=== PATIENT | female | born 1935 | race Asian ===

== ENCOUNTER 2021-08-07 13:24 | Inpatient (IN) | payer MEDICARE, SELFPAY ==
[2021-08-07] VITALS (42 sets, daily range): BP systolic 112–209; BP diastolic 69–117; PULSE 89–116; RESP 12–31; TEMP 36.8–38.1; O2SAT 88–96
--- NOTE | 2021-08-07 13:49 | CT_ITS ---
WS: [id number] CT ABDOMEN PELVIS TECHNIQUE: Contrast-enhanced CT of the abdomen and pelvis with coronal and sagittal reformatted image s. CLINICAL INFORMATION: eval for abd pain COMPARISON: 4 7,016 DLP: 1189.[address] scans at [facility] use at least one of these dose optimization techniques: automated e xposure control; mA and/or kV adjustment per patient size (includes targeted exams where dose is matc hed to clinical indication); or iterative reconstruction. FINDINGS: Dilated fluid-filled gallbladder with peripheral enhancement. Surrounding inflammatory stranding and edema in the gallbladder fossa. Reactive enhancement in the liver parenchyma in the gallbladder fossa . Findings suspicious for acute cholecystitis. Dilated common bile duct measuring 8 to 9 mm. No defin ite visualized choledocholithiasis. Recommend further evaluation with MRCP. Calcified gallstone in th e dorsal aspect of the gallbladder. Reactive enhancement in the adjacent duodenum. Diffuse fatty infiltration of the liver. Mild intrahepatic biliary duct dilatation. Normal portal vei n and splenic vein. Normal GE junction. Normal spleen. Adrenal glands are normal. Normal renal parenc hymal enhancement. No hydronephrosis in either kidney. RIGHT renal parenchymal scarring along the upp er pole. Bibasilar atelectasis. Mild fatty atrophy of the pancreas. Normal pancreatic parenchymal enh ancement. Dense calcification at the celiac and SMA origins which are patent. Densely calcified abdominal aorta . No aneurysm. Salcedo catheter. Rectosigmoid constipation. Sigmoid diverticulosis. No evidence of acute diverticuliti s. Thickening with inflammatory stranding involving the RIGHT colon and hepatic flexure extending int o the proximal transverse colon likely reactive from the adjacent gallbladder inflammation. Colitis i s an additional consideration. Surrounding mesenteric edema. Mild lumbar curve. Chronic appearing anterior wedging at T12 and L2. CT/CT abdomen pelvis w con* [id number] IMPRESSION: 1. Fluid distended gallbladder with wall thickening and enhancement with surro unding induration suspicious for acute cholecystitis. Dilatation common bile du ct measuring 8 to 9 mm. Recommend further evaluation with ultrasound and MRCP. 2. Mild intrahepatic biliary ductal dilatation. 3. Thickening and enhancement involving the RIGHT hepatic flexure adjacent to the gallbladder extending into the proximal transverse colon likely reactive. I nfectious, inflammatory, or ischemic colitis is an additional consideration. No pneumatosis. 4. No free fluid in the pelvis. 5. Salcedo catheter in place. 6. Rectosigmoid constipation. 7. Densely calcified abdominal aorta. Notified Guillermina Solano MD at 08/07/2021 4:42 PM.
--- NOTE | 2021-08-07 13:49 | XR_ITS ---
WS: [id number] Exam: XR chest 1V portable [id number] Date/Time of Exam: 08/07/2021 1:49 PM Reason For Exam: ams Comparison 05/27/2017. The lungs are fully expanded and clear. Cardiomediastinal silhouette is unremarkable for technique. B lunted left costophrenic angle suggesting trace pleural effusion. Regional bony elements are intact. XR/XR chest 1V portable [id number] IMPRESSION: 1. Blunted left costophrenic angle suggesting trace pleural effusion. 2. No acute cardiopulmonary finding.
--- NOTE | 2021-08-07 13:49 | CT_ITS ---
WS: [id number] CT HEAD TECHNIQUE: Noncontrast CT of the head obtained from the skullbase to the vertex. CLINICAL INFORMATION: ams COMPARISON: CT 2010 DLP: 2424.[address] scans at [facility] use at least one of these dose optimization techniques: automated e xposure control; mA and/or kV adjustment per patient size (includes targeted exams where dose is matc hed to clinical indication); or iterative reconstruction. FINDINGS: No evidence of intracranial hemorrhage or mass effect. Ventricular system and basal cisterns are veliz nt. Moderate small vessel changes with moderate parenchymal volume loss. 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 Intracranial vascular calcification. 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 Mild mucosal thickening paranasal sinuses. CT/CT head wo con* [id number] IMPRESSION: 1. No evidence of intracranial hemorrhage or mass effect. 2. Moderate small vessel changes with moderate parenchymal volume loss progres sed compared to 2010. 3. Chronic lacunar infarcts in the LEFT basal ganglia, LEFT villa radiata, an d RIGHT thalamus. 4. Calcified small petroclival meningioma appears stable since 2009. 5. No acute intracranial findings.
--- NOTE | 2021-08-07 13:59 | ED_ITS ---
HPI - General Adult General: Chief complaint: Altered Mental Status Stated complaint: AMS, HTN Time Seen by Provider: 08/07/21 13:35 History of Present Illness: Patient is a 86-year-old female history of baseline dementia and recently treated UTI presenting to emergency room for concerns of fever and altered mental status. Earlier today, patient had a physical therapy session at a rehab facility. While patient was observed in the rehab facility, patient was confused and culture and EMS was called and patient was brought to the emergency room. In the emergency room, patient is responsive only to name, rest of history limited by cognitive status. Per EMS, patient recently was treated for UTI. Onset:unknown Duration:ongoing Location:home Severity:moderate/severe Review of Systems General: Reports: ROS unobtainable due to mental status PFSH ED PFSH: Medical History Acute UTI Dementia Surgical History Surgical history unknown Family History Other Unknown family medical history Social History Smoking and tobacco status: unknown if ever smoked Alcohol intake: unknown Substance/Drug Use: unknown Physical Exam Const: COMMON NORMALS: alert HENMT: COMMON NORMALS: atraumatic HEAD & SCALP: atraumatic MOUTH: moist mucous membranes not abnormal Eye: COMMON NORMALS: EOMs intact bilaterally and conjunctivae normal CONJUNCTIVA: Yes conjunctivae normal Neck/C-Spine: COMMON NORMALS: full ROM and supple Resp: COMMON NORMALS: normal respiratory effort OTHER: +mild decreased breath sounds b/l Cardio: COMMON NORMALS: regular rate RATE: regular rate GI: COMMON NORMALS: Soft to palpation PALPATION: Yes Soft to palpation OTHER: +moderate lower abd TTP. NO guarding rebound, guarding, rigidity. No CVA tenderness to percussion. Neg Dixon/Neg McBurney's point tenderness, no suprabupic tenderness to palpation. Extremity: COMMON NORMALS: full ROM Neuro: SENSORIUM/ORIENTATION: Yes alert OTHER: +unable to assess given AMS, responsive to name, and moving all extremities Psych: OTHER: +unable to asess given AMS Course Vital Signs: Vital signs: Vital Signs Temperature 100.3 F H 08/08/21 07:09 Pulse Rate 97 08/08/21 09:00 Respiratory Rate 13 08/08/21 09:00 Blood Pressure 192/90 08/08/21 09:00 Pulse Oximetry 91 08/08/21 09:00 MDM - General Adult Medical Decision Making 86-year-old female with history UTI baseline dementia presenting to the emergency room from physical rehab for concerns of altered mental status. Arrival, patient to be febrile to 100.6. Rest of history limited given underlying cognitive status. Patient's appears to be moving all extremity. Patient winces to pain to palpation of lower abdomen. No guarding or rebound tenderness. Labs showed WBC of 32.1. No AST ALT or T bili elevation. CT abdomen pelvis showed acute cholecystitis with possible colitis. No signs of CBD stone do not suspect acute cholangitis at this time in the setting of no lab abnormality. I discussed case with Dr. Restrepo around 4:51 PM who tells me that given this white count, recommended evaluating for ischemic bowel first with CTA study significant leukocytosis. CTA did not show any signs of ischemic bowel. On the CTA study, and is clear visualization of acute cholecystitis with 9 mm stone in the gallbladder neck. I have called Dr. Restrepo again and discussed findings. Dr. Restrepo tells me that NOW because there is clear visualization of acute cholecystitis, thereis no need for a HIDA scan. It is unclear whether patient has significant cholecystitis with adjacent inflammation next the ascending colon or she has acute cholecystitis concurrently with colitis. Patient has not had any diarrhea while observed in the emergency room. We will send stool culture should this be C. difficile colitis. Patient received vancomycin, cefepime and metronidazole. Patient received 1 L of fluid. We will choose to fluid restrict set again at 30 cc/kg bolus of IVF given age and unknown past medical history. I have discussed case with patient's friend Santiago who notified patient's Dennis who is the healthcare proxy. Dennis tells me that patient is full code at this time and would like patient to have surgery should she need it. Disposition: admission Lab Data : 08/08/21 04:54 08/08/21 04:54 Radiology Impressions Abdomen/Pelvis CT 08/07/21 13:49 IMPRESSION: 1. Fluid distended gallbladder with wall thickening and enhancement with surrounding induration suspicious for acute cholecystitis. Dilatation common bile duct measuring 8 to 9 mm. Recommend further evaluation with ultrasound and MRCP. 2. Mild intrahepatic biliary ductal dilatation. 3. Thickening and enhancement involving the RIGHT hepatic flexure adjacent to the gallbladder extending into the proximal transverse colon likely reactive. Infectious, inflammatory, or ischemic colitis is an additional consideration. No pneumatosis. 4. No free fluid in the pelvis. 5. Salcedo catheter in place. 6. Rectosigmoid constipation. 7. Densely calcified abdominal aorta. Notified Guillermina Solano MD at 08/07/2021 4:42 PM. Chest X-Ray 08/07/21 13:49 IMPRESSION: 1. Blunted left costophrenic angle suggesting trace pleural effusion. 2. No acute cardiopulmonary finding. Head CT 08/07/21 13:49 IMPRESSION: 1. No evidence of intracranial hemorrhage or mass effect. 2. Moderate small vessel changes with moderate parenchymal volume loss progressed compared to 2009. 3. Chronic lacunar infarcts in the LEFT basal ganglia, LEFT villa radiata, and RIGHT thalamus. 4. Calcified small petroclival meningioma appears stable since 2009. 5. No acute intracranial findings. Gallbladder Ultrasound 08/07/21 16:44 IMPRESSION: 1. Thickened gallbladder wall, consistent with acute cholecystitis. There is no visible calculus within the gallbladder on ultrasound. In retrospect, on the CT scan 08/07/2021, there is a 9 mm calcified stone in the gallbladder neck. Abdomen/Pelvis CTA 08/07/21 16:50 IMPRESSION: 1. No active GI hemorrhage identified. 2. Acute cholecystitis with 9 mm gallstone in the neck. 3. Inflammation of the ascending, hepatic flexure, and proximal transverse colon. This is most likely reactive inflammation due to the gallbladder disease. Infectious or inflammatory colitis is not excluded. 4. Thickened urinary bladder wall may relate to nondistention. Cystitis is not excluded. Laboratory Results WBC 32.1 10^3/uL (4.0-10.0) H* 08/07/21 14:15 RBC 4.49 10^6/uL (4.1-5.3) 08/07/21 14:15 Hgb 14.3 g/dL (11.5-15.3) 08/07/21 14:15 Hct 43.0 % (37.0-47.0) 08/07/21 14:15 MCV 95.8 fl (81-99) 08/07/21 14:15 MCH 31.8 pg (28.0-34.0) 08/07/21 14:15 MCHC 33.3 g/dL (30.0-36.0) 08/07/21 14:15 RDW 12.9 % (12.1-15.1) 08/07/21 14:15 Plt Count 279 10^3/cmm (130-400) 08/07/21 14:15 MPV 9.9 fL (7.4-10.4) 08/07/21 14:15 Neut % (Auto) 92.7 % 08/07/21 14:15 Lymph % (Auto) 2.0 % 08/07/21 14:15 Irion % (Auto) 4.2 % 08/07/21 14:15 Eos % (Auto) 0.0 % 08/07/21 14:15 Baso % (Auto) 0.2 % 08/07/21 14:15 Neut # (Auto) 29.72 10^3/uL (1.8-7.7) H 08/07/21 14:15 Lymph # (Auto) 0.6 10^3/uL (0.8-4.8) L 08/07/21 14:15 [place] # (Auto) 1.4 10^3/uL (0.2-0.9) H 08/07/21 14:15 Eos # (Auto) 0.0 10^3/uL (0.0-0.8) 08/07/21 14:15 Baso # (Auto) 0.1 10^3/uL (0.0-0.1) 08/07/21 14:15 Nucleated RBC % (auto) 0 % 08/07/21 14:15 Nucleated RBCs # 0.0 /100WBC 08/07/21 14:15 Sodium 134 mmol/L (136-145) L 08/07/21 14:15 Potassium 4.2 mmol/L (3.5-5.1) 08/07/21 14:15 Chloride 98 mmol/L (98-107) 08/07/21 14:15 Carbon Dioxide 20 mmol/L (22-29) L 08/07/21 14:15 Anion Gap 20.2 (5-19) H 08/07/21 14:15 BUN 19 mg/dL (8-23) 08/07/21 14:15 Creatinine 0.6 mg/dL (0.5-0.9) 08/07/21 14:15 GFR Calculation Not Reportable 08/07/21 14:15 Glucose 392 mg/dL (65-115) H 08/07/21 14:15 Estimat Average Glucose 163 08/07/21 14:15 Hemoglobin A1c 7.3 % (4.0-6.0) H 08/07/21 14:15 Calculated Osmolality 297 mOsm/kg (285-295) H 08/07/21 14:15 Lactate 3.0 mmol/L (0.5-2.2) H 08/07/21 14:15 Calcium 8.4 mg/dL (8.5-10.5) L 08/07/21 14:15 Total Bilirubin 0.6 mg/dL (0.15-1.2) 08/07/21 14:15 AST 24 U/L (0-32) 08/07/21 14:15 ALT 13 U/L (0-33) 08/07/21 14:15 Alkaline Phosphatase 62 IU/L (35-105) 08/07/21 14:15 Troponin T Baseline 22 ng/L (0-10) H 08/07/21 14:15 Troponin T 120 Minute 19.85 ng/L (0-10) H 08/07/21 16:42 Delta Troponin T -2.15 ABS# (0-10) L 08/07/21 16:42 Troponin T Hi Sens 6Hr 22.32 ng/L (0-10) H 08/07/21 20:07 Troponin T Hi Sens 6Hr Delta 0.32 ng/L (0-12) 08/07/21 20:07 Total Protein 6.9 g/dL (6.6-8.7) 08/07/21 14:15 Albumin 3.6 g/dL (3.5-5.2) 08/07/21 14:15 Globulin 3.3 g/dL (1.3-4.6) 08/07/21 14:15 Triglycerides 97 mg/dL (0-150) 08/07/21 14:15 Cholesterol 161 mg/dL (0-200) 08/07/21 14:15 LDL Cholesterol, Calc 89 mg/dL (50-129) 08/07/21 14:15 HDL Cholesterol 53 mg/dL (60-100) L 08/07/21 14:15 LDL/HDL Ratio 1.68 RATIO (0.00-3.22) 08/07/21 14:15 Cholesterol/HDL Ratio 3.04 mg/dL (0.0-4.40) 08/07/21 14:15 Lipase 39 U/L (13-60) 08/07/21 14:15 Procalcitonin 1.79 ng/mL (0-0.5) H 08/07/21 14:15 Urine Color Yellow (Yellow) 08/07/21 15:02 Urine Appearance Clear (CLEAR) 08/07/21 15:02 Urine pH 5 (5-7) 08/07/21 15:02 Ur Specific [place] 1.015 (1.005-1.030) 08/07/21 15:02 Urine Protein 3+ (Negative) H 08/07/21 15:02 Urine Glucose (UA) 4+ (Normal) H 08/07/21 15:02 Urine Ketones 2+ (Negative) H 08/07/21 15:02 Urine Blood 2+ (Negative) H 08/07/21 15:02 Urine Nitrate Negative (Negative) 08/07/21 15:02 Urine Bilirubin Neg (Negative) 08/07/21 15:02 Urine Urobilinogen Neg mg/dL (Negative) 08/07/21 15:02 Ur Leukocyte Esterase Negative (Negative) 08/07/21 15:02 Urine RBC 0-4 /hpf (0-2) H 08/07/21 15:02 Urine WBC Rare /hpf (0-5) 08/07/21 15:02 Ur Squamous Epith Cells None /hpf (0-5) 08/07/21 15:02 Amorphous Sediment Not Reportable 08/07/21 15:02 Urine Bacteria None /hpf (NONE) 08/07/21 15:02 Nasal Influ A H1 2009 PCR Not detected (NOT DETECT) 08/07/21 15:25 Coronavirus 229E (PCR) Not detected (NOT DETECT) 08/07/21 15:25 Influenza A (H1) PCR Not detected (NOT DETECT) 08/07/21 15:25 Influenza A (H3) PCR Not detected (NOT DETECT) 08/07/21 15:25 Influenza Type A (PCR) Not detected (NOT DETECT) 08/07/21 15:25 Influenza Type B (PCR) Not detected (NOT DETECT) 08/07/21 15:25 SARS-CoV-2 (PCR) Not detected (NOT DETECT) 08/07/21 15:25 Imaging Data Other Imaging: Radiologist's impression: [facility] [address] [place] [address] CT Scan Report Signed Patient: Jeancarlos Hernandez Unit #: [id number] : 1935 Age/Sex: 86 / F ADM Date: 08/07/21 Loc: ER Room/Bed: Attending Dr: Ordering Provider/Ordering MD: Guillermina Solano MD Date of Service: 08/07/21 Procedure(s): CT abdomen pelvis w con* [id number] Accession Number(s): [id number] Report Number: [id number] WS: [id number] CT ABDOMEN PELVIS TECHNIQUE: Contrast-enhanced CT of the abdomen and pelvis with coronal and sa gittal reformatted images. CLINICAL INFORMATION: eval for abd pain COMPARISON: 4 7,016 DLP: 1189.[address] scans at [facility] use at least one of these dose optimization techniques: automated exposure control; mA and/or kV adjustment per patient size (includes targeted exams where dose is matched to clinical indication); or iterative reconstruction. FINDINGS: Dilated fluid-filled gallbladder with peripheral enhancement. Surrounding inflammatory stranding and edema in the gallbladder fossa. Reactive enhancement in the liver parenchyma in the gallbladder fossa. Findings suspicious for acute cholecystitis. Dilated common bile duct measuring 8 to 9 mm. No definite visualized choledocholithiasis. Recommend further evaluation with MRCP. Calcified gallstone in the dorsal aspect of the gallbladder. Reactive enhancement in the adjacent duodenum. Diffuse fatty infiltration of the liver. Mild intrahepatic biliary duct dilatation. Normal portal vein and splenic vein. Normal GE junction. Normal spleen. Adrenal glands are normal. Normal renal parenchymal enhancement. No hydronephrosis in either kidney. RIGHT renal parenchymal scarring along the upper pole. Bibasilar atelectasis. Mild fatty atrophy of the pancreas. Normal pancreatic parenchymal enhancement. Dense calcification at the celiac and SMA origins which are patent. Densely calcified abdominal aorta. No aneurysm. Salcedo catheter. Rectosigmoid constipation. Sigmoid diverticulosis. No evidence of acute diverticulitis. Thickening with inflammatory stranding involving the RIGHT colon and hepatic flexure extending into the proximal transverse colon likely reactive from the adjacent gallbladder inflammation. Colitis is an additional consideration. Surrounding mesenteric edema. Mild lumbar curve. Chronic appearing anterior wedging at T12 and L2. CT/CT abdomen pelvis w con* [id number] IMPRESSION: ? 1.? Fluid distended gallbladder with wall thickening and enhancement with surrounding induration suspicious for acute cholecystitis. Dilatation common bile duct measuring 8 to 9 mm. Recommend further evaluation with ultrasound and MRCP. 2.? Mild intrahepatic biliary ductal dilatation. 3.? Thickening and enhancement involving the RIGHT hepatic flexure adjacent to the gallbladder extending into the proximal transverse colon likely reactive. Infectious, inflammatory, or ischemic colitis is an additional consideration. No pneumatosis. 4.? No free fluid in the pelvis. 5.? Salcedo catheter in place. 6.? Rectosigmoid constipation. 7.? Densely calcified abdominal aorta. ? Notified Guillermina Solano MD at 08/07/2021 4:42 PM. ? ? Dictated By: Garth Regan MD Signed By: Garth Regan MD Signed Date/Time: 08/07/21 1648 DD/ [address] [address] [address] Scan Report Signed Patient: Jeancarlos Hernandez Unit #: [id number] : 1935 Age/Sex: 86 / F ADM Date: 08/07/21 Loc: ER Room/Bed: Attending Dr: Ordering Provider/Ordering MD: Guillermina Solano MD Date of Service: 08/07/21 Procedure(s): CT angio abdomen pelvis [id number] Accession Number(s): [id number] Report Number: [id number] PROCEDURE INFORMATION: Exam: CT Angiography Abdomen and Pelvis With Contrast, GI Bleeding Exam date and time: 08/07/2021 5:41 PM Age: 86 years old Clinical indication: Abnormal findings; Abnormal diagnostic imaging exam; Abnormality: -thickening with inflammatory stranding involving the right colon and hepatic flexure. Extending into the proximal transverse colon likely reactive from the adjacent gallbladder. Inflammation. ; Exam and body structure: CT abd pelvis with contrast; Additional info: Ischemic bowel of the hepatic flexure? TECHNIQUE: Imaging protocol: Computed tomographic angiography of the abdomen and pelvis with contrast. 3D rendering (Not supervised by radiologist): MIP and/or 3D reconstructed images were created by the technologist. Radiation optimization: All CT scans at this facility use at least one of these dose optimization techniques: automated exposure control; mA and/or kV adjustment per patient size (includes targeted exams where dose is matched to clinical indication); or iterative reconstruction. Contrast material: VISI; Contrast volume: 60 ml; Contrast route: INTRAVENOUS (IV);? COMPARISON: CT abdomen pelvis w con* [id number] 08/07/2021 4:05 PM RADIATION DOSE METRICS: Total DLP (mGy-cm): 787.77 FINDINGS: Heart: Coronary artery calcifications. Aorta: Calcified plaque in the abdominal aorta. No aneurysm or dissection. Celiac trunk and mesenteric arteries: Calcified plaque with mild stenosis at the origin of the celiac and superior mesenteric arteries. Renal arteries: Calcified plaque at the origin of the left renal artery with mild stenosis. No stenosis in the right renal artery. Right iliac arteries: Calcified plaque in the right external iliac artery with moderate stenosis distally. Left iliac arteries: Calcified plaque in the left common and external [place] arteries with moderate stenosis in the distal left external iliac artery. Liver: The common hepatic duct measures 8 mm. The common bile duct is normal in diameter. Gallbladder and bile ducts: Fluid distended gallbladder with wall thickening and edema. Pericholecystic fat stranding. 9 mm calculus in the gallbladder neck. There is decompression and mild wall thickening within the ascending, hepatic flexure, and proximal transverse colon, in the region of inflammatory gallbladder stranding. The stomach and small bowel are unremarkable. No wall thickening or obstruction. Pancreas: Unremarkable. No mass. No ductal dilation. Spleen: Unremarkable. No splenomegaly. Adrenal glands: Normal. No mass. Kidneys and ureters: Small chronic cortical defect in the superior right kidney. The kidneys are otherwise unremarkable. No hydronephrosis. Stomach and bowel: Moderate stool in the rectum and distal colon. Appendix: The appendix is not visualized. No secondary signs of appendicitis. Intraperitoneal space: Unremarkable. No free air. No significant fluid collection. Lymph nodes: Subcentimeter retroperitoneal lymph nodes are most likely reactive. Density calcified mesenteric lymph node. Urinary bladder: Salcedo catheter in the urinary bladder which is decompressed. Wall thickening measuring up to 10 mm. Reproductive: The uterus and ovaries are absent. Bones/joints: T12 and L2 compression fractures, chronic and unchanged. No acute fracture. Soft tissues: Unremarkable. CT/CT angio abdomen pelvis [id number] IMPRESSION: 1. No active GI hemorrhage identified. 2. Acute cholecystitis with 9 mm gallstone in the neck. 3. Inflammation of the ascending, hepatic flexure, and proximal transverse colon.? This is most likely reactive inflammation due to the gallbladder disease.? Infectious or inflammatory colitis is not excluded. 4. Thickened urinary bladder wall may relate to nondistention.? Cystitis is not excluded. ? Dictated By: Aidan Casarez Signed By: Aidan Casarez Signed Date/Time: 08/07/21 1820 DD/ 1741 Critical Care Time Critical Care Time: Critical Care Time: Yes Total Critical Care Time: 40 Attestation: The high probability of a clinically significant, sudden or life threatening deterioration of the patient's GI system(s) required my full and direct attention, intervention and personal management. The critical care time is as shown. This time is in addition to time spent performing any reported procedures but includes the following: [x] Data and vital sign review and interpretation [x] Patient assessment, examination and intervention [x] Documentation [x] Medication orders and management Discharge Plan Discharge Patient Disposition: Admitted As Inpatient Admit Provider: Reinaldo Mendoza Clinical Impression: Altered mental status, Fever, Acute cholecystitis, Colitis Condition: Stable Coding Level of Care Code ED Office Services Clerk for Karlig Fwd Exam Comprehensive
[2021-08-07 14:27] LABS: Basophils # 0.1 10^3/uL (0.0-0.1); Basophils % 0.2 %; Hemoglobin 14.3 g/dL (11.5-15.3); Lymphocytes # 0.6 10^3/uL (0.8-4.8); Mean Corpuscular HGB Conc 33.3 g/dL (30.0-36.0); Mean Corpuscular Hemoglobin 31.8 pg (28.0-34.0); Mean Corpuscular Volume 95.8 fl (81-99); Mean Platelet Volume 9.9 fL (7.4-10.4); Monocytes # 1.4 10^3/uL (0.2-0.9); Monocytes % 4.2 %; Neutrophils # 29.72 10^3/uL (1.8-7.7); Neutrophils % 92.7 %; Nucleated Red Blood Cells % 0 %; Platelet Count 279 10^3/cmm (130-400); Red Blood Count 4.49 10^6/uL (4.1-5.3); Red Cell Distribution Width 12.9 % (12.1-15.1)
[2021-08-07 14:40] LABS: White Blood Count 32.1 10^3/uL (4.0-10.0)
[2021-08-07] MEDS: sodium chloride 0.9% 1,000 ML 999 ML IV (14:42)
--- NOTE | 2021-08-07 14:44 | PC.NURSE ---
Pt unable to follow directions to drink water or to take pill. Physician notified
[2021-08-07 14:46] LABS: Troponin(5th) Baseline 22 ng/L (0-10)
[2021-08-07 14:50] LABS: Alanine Aminotransferase 13 U/L (0-33); Albumin Level 3.6 g/dL (3.5-5.2); Alkaline Phosphatase 62 IU/L (35-105); Anion Gap 20.2 (5-19); Aspartate Amino Transferase 24 U/L (0-32); Blood Urea Nitrogen 19 mg/dL (8-23); Calcium 8.4 mg/dL (8.5-10.5); Carbon Dioxide 20 mmol/L (22-29); Chloride 98 mmol/L (98-107); Globulin 3.3 g/dL (1.3-4.6); Glucose 392 mg/dL (65-115); Lipase 39 U/L (13-60); Osmolality Calculated 297 mOsm/kg (285-295); Potassium 4.2 mmol/L (3.5-5.1); Sodium 134 mmol/L (136-145); Total Bilirubin 0.6 mg/dL (0.15-1.2); Total Protein 6.9 g/dL (6.6-8.7)
[2021-08-07] MEDS: cefepime 1,000 MG in sodium chloride 0.9% (plus) 50 ML 100 MG IV (15:23)
[2021-08-07 15:34] LABS: Add Urine Culture? No; Add Urine Microscopic? YES; Bilirubin Urine Neg (Negative); Blood Urine 2+ (Negative); Glucose Urine UA 4+ (Normal); Ketones Urine 2+ (Negative); Leukocyte Esterase Urine Negative (Negative); Nitrate Urine Negative (Negative); Protein Urine 3+ (Negative); RBC Urine 0-4 /hpf (0-2); Specific Gravity, Urine 1.015 (1.005-1.030); Urine Appearance Clear (CLEAR); Urine Color Yellow (Yellow); Urobilinogen Urine Neg (Negative); WBC Urine RARE /hpf (0-5); pH Urine 5 (5-7)
[2021-08-07] MEDS: vancomycin 1,000 MG in sodium chloride 0.9% 250 ML 250 MG IV (15:46)
--- NOTE | 2021-08-07 15:50 | ECG_ITS ---
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 Measurements Intervals [place] Rate: 99 P: 34 AL: 132 QRS: 35 QRSD: 90 T: 70 QT: 366 QTc: 470 Interpretive Statements SINUS RHYTHM NONSPECIFIC ST & T-WAVE ABNORMALITY Compared to ECG 08/07/2021 14:08:55 No significant changes Electronically Signed On 08-08-2021 6:11:44 CDT by Felicity Ramirez M.D. [id number] f
[2021-08-07] MEDS: iohexol 350 mg/mL 100 mL Btl IV (16:06)
--- NOTE | 2021-08-07 16:36 | PC.PHAR ---
pt was unable to verify medications - pt family left paperwork from [employer] printed on 07/21/21 that had home meds. Paperwork states patient is taking Lantus 10 units once daily. Lantus has not been filled by patient's pharmacy - Tresiba filled on 08/06/21 at [facility] pharmacy.
--- NOTE | 2021-08-07 16:44 | USR_ITS ---
PROCEDURE INFORMATION: Exam: US Abdomen, Limited; Right Upper Quadrant Exam date and time: 08/07/2021 4:53 PM Age: 86 years old Clinical indication: Abnormal findings; Abnormal radiologic finding of the abdomen; Radiologic exam and body structure: CT abd pelvis; Additional info: Acute cholecystitis TECHNIQUE: Imaging protocol: US abdomen. Real time ultrasound with image documentation. Limited exam focused on the right upper quadrant. COMPARISON: CT abdomen pelvis w con* [id number] 08/07/2021 4:05 PM FINDINGS: Liver: The liver is of normal size and echogenicity measuring 14.3 cm. Gallbladder: Fluid distended gallbladder with a wall thickness of 6.3 mm. No visible calculus in the gallbladder. Common bile duct: Common bile duct 3.3 mm. Pancreas: The pancreas is obscured by bowel gas. Right kidney: Normal. No mass. No hydronephrosis. Portal venous: Hepatopetal flow in the main portal vein. Intraperitoneal space: No ascites. US/US gall bladder [id number] IMPRESSION: 1. Thickened gallbladder wall, consistent with acute cholecystitis. There is no visible calculus within the gallbladder on ultrasound. In retrospect, on the CT scan 08/07/2021, there is a 9 mm calcified stone in the gallbladder neck.
--- NOTE | 2021-08-07 16:50 | CTR_ITS ---
PROCEDURE INFORMATION: Exam: CT Angiography Abdomen and Pelvis With Contrast, GI Bleeding Exam date and time: 08/07/2021 5:41 PM Age: 86 years old Clinical indication: Abnormal findings; Abnormal diagnostic imaging exam; Abnormality: -thickening with inflammatory stranding involving the right colon and hepatic flexure. Extending into the proximal transverse colon likely reactive from the adjacent gallbladder. Inflammation. ; Exam and body structure: CT abd pelvis with contrast; Additional info: Ischemic bowel of the hepatic flexure? TECHNIQUE: Imaging protocol: Computed tomographic angiography of the abdomen and pelvis with contrast. 3D rendering (Not supervised by radiologist): MIP and/or 3D reconstructed images were created by the technologist. Radiation optimization: All CT scans at this facility use at least one of these dose optimization techniques: automated exposure control; mA and/or kV adjustment per patient size (includes targeted exams where dose is matched to clinical indication); or iterative reconstruction. Contrast material: VISI; Contrast volume: 60 ml; Contrast route: INTRAVENOUS (IV); COMPARISON: CT abdomen pelvis w con* [id number] 08/07/2021 4:05 PM RADIATION DOSE METRICS: Total DLP (mGy-cm): 787.77 FINDINGS: Heart: Coronary artery calcifications. Aorta: Calcified plaque in the abdominal aorta. No aneurysm or dissection. Celiac trunk and mesenteric arteries: Calcified plaque with mild stenosis at the origin of the celiac and superior mesenteric arteries. Renal arteries: Calcified plaque at the origin of the left renal artery with mild stenosis. No stenosis in the right renal artery. Right iliac arteries: Calcified plaque in the right external iliac artery with moderate stenosis distally. Left iliac arteries: Calcified plaque in the left common and external [place] arteries with moderate stenosis in the distal left external iliac artery. Liver: The common hepatic duct measures 8 mm. The common bile duct is normal in diameter. Gallbladder and bile ducts: Fluid distended gallbladder with wall thickening and edema. Pericholecystic fat stranding. 9 mm calculus in the gallbladder neck. There is decompression and mild wall thickening within the ascending, hepatic flexure, and proximal transverse colon, in the region of inflammatory gallbladder stranding. The stomach and small bowel are unremarkable. No wall thickening or obstruction. Pancreas: Unremarkable. No mass. No ductal dilation. Spleen: Unremarkable. No splenomegaly. Adrenal glands: Normal. No mass. Kidneys and ureters: Small chronic cortical defect in the superior right kidney. The kidneys are otherwise unremarkable. No hydronephrosis. Stomach and bowel: Moderate stool in the rectum and distal colon. Appendix: The appendix is not visualized. No secondary signs of appendicitis. Intraperitoneal space: Unremarkable. No free air. No significant fluid collection. Lymph nodes: Subcentimeter retroperitoneal lymph nodes are most likely reactive. Density calcified mesenteric lymph node. Urinary bladder: Salcedo catheter in the urinary bladder which is decompressed. Wall thickening measuring up to 10 mm. Reproductive: The uterus and ovaries are absent. Bones/joints: T12 and L2 compression fractures, chronic and unchanged. No acute fracture. Soft tissues: Unremarkable. CT/CT angio abdomen pelvis [id number] IMPRESSION: 1. No active GI hemorrhage identified. 2. Acute cholecystitis with 9 mm gallstone in the neck. 3. Inflammation of the ascending, hepatic flexure, and proximal transverse colon. This is most likely reactive inflammation due to the gallbladder disease. Infectious or inflammatory colitis is not excluded. 4. Thickened urinary bladder wall may relate to nondistention. Cystitis is not excluded.
--- NOTE | 2021-08-07 17:07 | PC.NURSE ---
Primary nurse states patient gave okay to speak with son Chad.
--- NOTE | 2021-08-07 17:09 | PC.NURSE ---
Patient family contact is Chad PHELPS he can be reached at [phone].
[2021-08-07 17:19] LABS: Troponin 5 2HR 19.85 ng/L (0-10); Troponin 5 2HR Delta -2.15 ABS# (0-10)
[2021-08-07] MEDS: metroNIDAZOLE IV 500 MG/100 ML PREMIX 100 MG IV (17:53)
[2021-08-07] MEDS: iodixanol 320 mg/mL 100mL Btl IV (18:31)
--- NOTE | 2021-08-07 19:13 | P.HP_ITS ---
Providers/Chief Complaint Chief Complaint: AMS, HTN History of Present Illness Jeancarlos Hernandez is a 86 year old female who was brought in today for chief complaint of altered mental status and fever. Patient was not able to provide any history, I called her friend Chad Lazozier to get some report. Patient was admitted to [facility] 2 weeks ago for complicated UTI, she was recommended rehab. There was some delay on initiating PT/rehab however today when she was examined by the staff she was altered and had fever. She was sent to the ER for further evaluation. Her symptoms started 1 day ago with recurrent nausea and vomiting. Her is suffering from expressive aphasia because of recent stroke he is not able to communicate over the phone however he understands and comprehend without difficulties as per Mr. Chad Lazozier. When I examined the patient, she was altered, oriented to herself, noticed pansystolic murmur radiating towards her axilla, bilateral extremity edema, patient is unkempt, her feet soiled with fecal matter She is not able to provide any history Extensive work-up done in the ER which showed acute cholecystitis with 9 mm calcified stone in the neck of the gallbladder without CBD dilation bilirubin is normal she does not meet criteria for cholangitis she is febrile, has positive Dixon's sign, no jaundice Lactic acid is high She is septic Requested blood culture, urine culture judicious use of fluids because of CHF, COVID test negative start Zosyn Admit to ICU She is full code Review of Systems General: Reports: ROS unobtainable due to medical condition (Hypoactive delirium) Medications/Allergies Home Medications Medication Instructions Recorded Confirmed Last Taken Type atorvastatin 40 mg tablet 40 mg PO DAILY 08/07/21 08/07/21 Unknown History clopidogrel 75 mg tablet (Plavix) 75 mg PO DAILY 08/07/21 08/07/21 Unknown History insulin degludec 200 unit/mL (3 8 unit SUBCUT BEDTIME 08/07/21 08/07/21 Unknown History mL) subcutaneous pen (Tresiba FlexTouch U-200 insulin) isosorbide mononitrate 30 mg 30 mg PO DAILY 08/07/21 08/07/21 Unknown History tablet,extended release 24 hr losartan 50 mg tablet 50 mg PO DAILY 08/07/21 08/07/21 Unknown History melatonin 3 mg tablet 3 mg PO BEDTIME 08/07/21 08/07/21 Unknown History metformin 850 mg tablet 850 mg PO BID 08/07/21 08/07/21 Unknown History metoprolol tartrate 25 mg tablet 50 mg PO BID 08/07/21 08/07/21 Unknown History omeprazole 40 mg capsule,delayed 40 mg PO DAILY 08/07/21 08/07/21 Unknown H istory release polyethylene glycol 3350 17 17 g PO DAILY PRN 08/07/21 08/07/21 Unknown History gram/dose oral powder (Miralax) Allergies Allergy/AdvReac Type Severity Reaction Status Date / Time No Known Allergies Allergy Verified 08/07/21 13:54 PFSH Acute PFSH: Medical History Acute UTI Dementia Surgical History Surgical history unknown Family History Other Unknown family medical history Social History Smoking and tobacco status: unknown if ever smoked Alcohol intake: unknown Substance/Drug Use: unknown Vitals/I&O/Wt Last Vital Signs Temp 100.3 F H 08/07/21 16:21 Pulse 95 08/07/21 16:21 Resp 20 H 08/07/21 16:21 BP 193/90 08/07/21 16:21 Pulse Ox 95 08/07/21 16:21 08/07/21 08/07/21 08/07/21 06:59 14:59 22:59 Intake Total 1250 / 1250 Balance 1250 / 1250 Physical Exam Narrative: Does have old elderly female Clinical signs of fluid overload Lower extremity 1+ pitting edema Unkept appearance Oriented to herself Moving her upper and lower extremities nonpurposeful movements Not able to communicate because of confusion Positive Dixon sign Abdomen distended right quadrant, tender to palpation, no guarding or rigidity Pansystolic murmur appreciated all over precordium radiating towards her axilla Saturating well on room air Patient is tachycardic Urinary Catheter Management: Salcedo: Cath Placed During This Visit: yes Urinary Catheter Date of Insertion: 08/07/21 Urinary Catheter Time of Insertion: 15:33 Data : 08/07/21 14:15 08/07/21 14:15 Micro: Microbiology 08/07/21 14:15 Blood Culture - Preliminary Blood SPECIMEN COLLECTED 08/07/21 14:10 Blood Culture - Preliminary Blood SPECIMEN COLLECTED A&P Assessment and plan (1) Acute cholecystitis: Status: Acute (2) Altered mental status: Status: Acute (3) Fever: Status: Acute (4) Sepsis: Status: Acute (5) Acute UTI: Status: Acute Plan Sepsis related to acute cholecystitis Gallstone related cholecystitis Gallstone in neck of the bladder Bilirubin normal AST ALT normal Does not have typical cholangitis signs No signs of colitis N.p.o. IV fluid hydration Start Zosyn Hold metformin and losartan RCRI:3 points, class IV 50% risk of 30-day mortality, considering urgency of surgical intervention would recommend cardiac echo, serial troponin and EKG Sinus tachycardia is appropriate to her fever Continue IV fluids Requested urine and blood culture Abnormal UA, requested urine culture. Hypertensive urgency patient takes metoprolol at home, she wanted to take anything p.o., I will give her IV labetalol push for as needed usage Bilateral lower extremity edema, pansystolic murmur I will request echo I do not have any previous records to know about her medical history in detail Requested records from [facility] Type 2 diabetes hold metformin Accu-Cheks every 4 hours, patient is n.p.o. She is high risk for cholangitis, complications related to sepsis, septic shock, peritonitis, , all the risk factors and potential complications were conveyed in simple terms to her friend Chad See has expressive aphasia he is able to comprehend appropriately Friend is expecting a call from the surgeon in the morning She is full code for now, please rediscuss goals of care in the morning once is here DVT prophylaxis: SCDs Attestations Medical Necessity Statement*: Anticipating more than 2 midnights in the [facility] for sepsis related to acute cholecystitis admit to ICU Time Spent in Patient Care: 40mins Coding Level of Care Code Acute Art History Professor for Chg Fwd Diagnoses Acute cholecystitis K81.0 Altered mental status R41.82 Fever R50.9 Sepsis A41.9 Acute UTI N39.0
[2021-08-07 19:23] LABS: Adenovirus Not Detected (NOT DETECT); Chlamydia Pneumoniae Not Detected (NOT DETECT); Coronavirus 229E,HKU1,NL63,OC4 Not Detected (NOT DETECT); Human Metapneumovirus Not Detected (NOT DETECT); Human Rhinovirus/Enterovirus Not Detected (NOT DETECT); Influenza A Not Detected (NOT DETECT); Influenza A H1 Not Detected (NOT DETECT); Influenza A H1-2009 Not Detected (NOT DETECT); Influenza A H3 Not Detected (NOT DETECT); Influenza B Not Detected (NOT DETECT); Mycoplasma Pneumoniae Not Detected (NOT DETECT); Parainfluenza Virus Type 1 Not Detected (NOT DETECT); Parainfluenza Virus Type 2 Not Detected (NOT DETECT); Parainfluenza Virus Type 3 Not Detected (NOT DETECT); Parainfluenza Virus Type 4 Not Detected (NOT DETECT); Respiratory Syncytial Virus A Not Detected (NOT DETECT); Respiratory Syncytial Virus B Not Detected (NOT DETECT); SARS-COV-2 Not Detected (NOT DETECT)
[2021-08-07 19:37] LABS: Results from GENMARK
[2021-08-07 19:42] LABS: Chol HDL Ratio 3.04 mg/dL (0.0-4.40); Cholesterol 161 mg/dL (0-200); HDL Cholesterol 53 mg/dL (60-100); LDL Cholesterol Calculated 89 mg/dL (50-129); LDL HDL Ratio 1.68 RATIO (0.00-3.22); Triglycerides 97 mg/dL (0-150)
[2021-08-07 19:48] LABS: Procalcitonin 1.79 ng/mL (0-0.5)
--- NOTE | 2021-08-07 19:50 | ECG_ITS ---
[facility] Test Date: 2021-08-07 Pat Name: Jeancarlos Hernandez Department: Room: Gender: Female Slope Hoist Operator: : 1935 Requested By: Guillermina Solano Order Number: [id number] Karen MD: Felicity Ramirez M.D. Measurements Intervals [place] Rate: 90 P: 47 NM: 156 QRS: -5 QRSD: 88 T: 65 QT: 359 QTc: 441 Interpretive Statements SINUS RHYTHM POSSIBLE LEFT ATRIAL ENLARGEMENT [-0.1mV P-WAVE IN V1/V2] POSSIBLE LEFT VENTRICULAR HYPERTROPHY [VOLTAGE CRITERIA PLUS LAE OR QRS WIDENING] NONSPECIFIC ST & T-WAVE ABNORMALITY No previous ECG available for comparison Electronically Signed On 08-08-2021 6:12:06 CDT by Felicity Ramirez M.D. [id number]
[2021-08-07 20:19] LABS: Estmated Average Glucose 163; Hemoglobin A1C 7.3 % (4.0-6.0)
[2021-08-07 20:31] LABS: Troponin 5 6HR 22.32 ng/L (0-10)
[2021-08-07 20:33] LABS: Troponin 5 6HR Delta 0.32 ng/L (0-12)
[2021-08-07] MEDS: piperacillin-tazobactam 3.375 GM in sodium chloride 0.9% (plus) 50 ML IV (22:06)
[2021-08-07] MEDS: sodium chloride 0.9% 1,000 ML 30 ML IV (22:06)
[2021-08-07] MEDS: labetalol 5 mg/mL SDV 20mL 10 MG IVP (22:07)
[2021-08-07] MEDS: HYDROmorphone 1 mg/mL INJ 1 mL 0.4 MG IVP (22:28)
[2021-08-08] VITALS (88 sets, daily range): BP systolic 82–208; BP diastolic 46–96; PULSE 83–112; RESP 8–20; TEMP 37.9; O2SAT 91–100
[2021-08-08 00:15] LABS: Glucose Point of Care 321 mg/dL (70-110)
--- NOTE | 2021-08-08 00:31 | USCV_ITS ---
Jeancarlos Hernandez Age: 86 Gender: F : 1935 Exam Date: 08/08/2021 00:35 Ordering Phys: Reinaldo Mendoza MD Technologist: MELCHOR [place]am Location[place] [facility] [place] Indication: Pansystolic murmur BP: 140 / 79 HR: 105 Rhythm: Sinus Technical Quality: Adequate MEASUREMENTS (Male / Female) Normal Values 2D ECHO LV Diastolic Diameter PLAX 4.2 cm 4.2 - 5.9 / 3.9 - 5.3 cm LV Systolic Diameter PLAX 3.5 cm IVS Diastolic Thickness 0.9 cm 0.6 - 1.0 / 0.6 - 0.9 cm IVS Systolic Thickness 1.7 cm LVPW Diastolic Thickness 1.4 cm 0.6 - 1.0 / 0.6 - 0.9 cm LVPW Systolic Thickness 1.2 cm LVOT Diameter 2.2 cm LV Ejection Fraction 2D Teich 33.4 % LV Ejection Fraction MOD 2C 46.0 % LV Ejection Fraction 2C AL 47.1 % LA Diameter 3.3 cm RA Width 2.4 cm RA Height 3.5 cm Aorta at Sinotubular Diameter 2.2 cm M-MODE Aortic Annulus Diameter 2.5 cm LA Ao Ratio MM 1.4 MV E Point Septal Separation 1.5 cm DOPPLER AV Peak Velocity 289.0 cm/s LVOT Peak Velocity 69.0 cm/s AV Area Cont Eq vti 1.1 cm squared AV Area Cont Eq pk 0.9 cm squared MV E' Velocity 9.0 cm/s TR Peak Velocity 135.7 cm/s TR Peak Gradient 7.4 mmHg TR Mean Velocity 84.8 cm/s TR Mean Gradient 3.5 mmHg TR Velocity Time Integral 17.0 cm Right Atrial Pressure 10.0 mmHg Pulmonary Artery Systolic Pressu 17.4 mmHg PV Peak Velocity 189.0 cm/s RV Acceleration Time 0.1 s RV Ejection Time 0.3 s RV AcT/ET 0.4 FINDINGS Left Ventricle Mild left ventricular hypertrophy. LV ejection fraction around 55%. No gross wall motion normalities.Grade I/IV diastolic dysfunction (abnormal relaxation filling pattern), normal to mildly elevated filling pressures. Right Ventricle Normal right ventricular size and systolic function. Right Atrium The right atrium is normal in size. Left Atrium Mildly increased left atrial size. Mitral Valve Mild mitral annular calcification. Aortic Valve Moderate aortic valve stenosis, mean gradient 20 mmHg, DEAN 1.1 cm squared. Peak velocity of 2.95 m/s with a peak gradient of 35 mmHg Tricuspid Valve [id number] tricuspid valve regurgitation. Pulmonic Valve Trace pulmonary valve regurgitation. Pericardium No pericardial effusion. Aorta Normal ascending aorta dimension. CONCLUSIONS Mild left ventricular hypertrophy. LV ejection fraction around 55%. No gross wall motion normalities. Grade I/IV diastolic dysfunction (abnormal relaxation filling pattern), normal to mildly elevated filling pressures. Moderate aortic valve stenosis, mean gradient 20 mmHg, DEAN 1.1 cm squared. (Peak velocity of 2.95 m/s with a peak gradient of 35 mmHg). Mild mitral annular calcification. Mildly increased left atrial size. [id number]-rhlomvax tricuspid valve regurgitation. Estimated pulmonary artery peak systolic pressure was 17 mmHg There is no pericardial effusion. There are no intracardiac masses. No similar previous studies are available for comparison Dr Josue Jasso MD [facility] (Electronically Signed) Final Date: 08 August 2021 08:34 S
[2021-08-08] MEDS: HYDROmorphone 1 mg/mL INJ 1 mL 0.4 MG IVP ×3 (02:45→22:19)
[2021-08-08] MEDS: labetalol 5 mg/mL SDV 20mL 10 MG IVP ×2 (05:03→07:26)
[2021-08-08 05:08] LABS: Basophils # 0.1 10^3/uL (0.0-0.1); Basophils % 0.2 %; Hematocrit 39.8 % (37.0-47.0); Hemoglobin 13.1 g/dL (11.5-15.3); Lymphocytes # 0.7 10^3/uL (0.8-4.8); Lymphocytes % 1.9 %; Mean Corpuscular HGB Conc 32.9 g/dL (30.0-36.0); Mean Corpuscular Hemoglobin 31.7 pg (28.0-34.0); Mean Corpuscular Volume 96.4 fl (81-99); Mean Platelet Volume 10.1 fL (7.4-10.4); Monocytes # 1.6 10^3/uL (0.2-0.9); Monocytes % 4.9 %; Neutrophils # 30.64 10^3/uL (1.8-7.7); Neutrophils % 91.8 %; Nucleated Red Blood Cells % 0 %; Platelet Count 243 10^3/cmm (130-400); Red Blood Count 4.13 10^6/uL (4.1-5.3)
[2021-08-08 05:24] LABS: Glucose Point of Care 284 mg/dL (70-110)
[2021-08-08 05:30] LABS: Alanine Aminotransferase 12 U/L (0-33); Albumin Level 2.9 g/dL (3.5-5.2); Alkaline Phosphatase 58 IU/L (35-105); Anion Gap 17.8 (5-19); Aspartate Amino Transferase 18 U/L (0-32); Blood Urea Nitrogen 21 mg/dL (8-23); Calcium 7.7 mg/dL (8.5-10.5); Carbon Dioxide 23 mmol/L (22-29); Chloride 101 mmol/L (98-107); Globulin 3.3 g/dL (1.3-4.6); Glucose 319 mg/dL (65-115); Osmolality Calculated 301 mOsm/kg (285-295); Potassium 3.8 mmol/L (3.5-5.1); Sodium 138 mmol/L (136-145); Total Bilirubin 0.4 mg/dL (0.15-1.2); Total Protein 6.2 g/dL (6.6-8.7)
[2021-08-08] MEDS: piperacillin-tazobactam 3.375 GM in sodium chloride 0.9% (plus) 50 ML IV ×2 (06:21→14:15)
[2021-08-08 06:37] LABS: Slide Review Slide Review Perform; White Blood Count 33.4 10^3/uL (4.0-10.0)
--- NOTE | 2021-08-08 07:56 | P.ANESASSM_ITS ---
Pre-Anesthetic Assessment Height/Weight: Weight 48.988 kg Temp Pulse Resp BP Pulse Ox 100.3 F H 101 H 16 174/93 91 08/08/21 07:09 08/08/21 07:00 08/08/21 07:00 08/08/21 07:00 08/08/21 07:00 Preop Diagnosis: acute cholecystitis Operation Date: 08/08/21 10:30 Proposed Procedures p Laparoscopic Cholecystectomy(Not Applicable) - Bill Restrepo MD Familial anesthetic complications: None known Patient non verbal, does not cooperate with exam Unable to get a hold of family Only contact unable to provide hx nor give consent unavailable per bedside RN, does not speak due to hx of stroke w/ aphasia Was Beta Lashell taken within 24 hours: Yes (Received labetalol for hypertensive urgency ) Social No alcohol and No tobacco Exam alert, oriented x 3, clear to auscultation bilaterally and regular rate & rhythm Airway Comments: Comments: Does not cooperate with exam, unable to open mouth CV/HEM Murmur (, MR, TR) Systolic ejection murmu 08/07/21 ?Interpretive Statements SINUS RHYTHM POSSIBLE LEFT ATRIAL ENLARGEMENT? [-0.1mV P-WAVE IN V1/V2] POSSIBLE LEFT VENTRICULAR HYPERTROPHY? [VOLTAGE CRITERIA PLUS LAE OR QRS WIDENING] NONSPECIFIC ST & T-WAVE ABNORMALITY No previous ECG available for comparison Electronically Signed On 08-08-2021 6:12:06 CDT by Felicity Ramirez M.D. [id number] Septic on admission TTE 08/07/21 ?CONCLUSIONS ?Mild left ventricular hypertrophy.? ?LV ejection fraction around 55%.? ?No gross wall motion normalities. ?Grade I/IV diastolic dysfunction (abnormal relaxation filling ?pattern), normal to mildly elevated filling pressures. ?Moderate aortic valve stenosis, mean gradient 20 mmHg, DEAN 1.1 ?cm squared.? (Peak velocity of 2.95 m/s with a peak gradient of 35 ?mmHg). ?Mild mitral annular calcification. ?Mildly increased left atrial size. ?Erka-vl-pbqoooqv tricuspid valve regurgitation. ?Estimated pulmonary artery peak systolic pressure was 17 mmHg ?There is no pericardial effusion. ?There are no intracardiac masses. ?No similar previous studies are available for comparison GI Acute cholecystitis Neuropsych Dementia Anesthetic Plan ASA status: 3E (86 year old female with acute cholecystitis with sepsis on admission, hypertensive urgency, aortic stenosis, dementia/AMS, and mitral regurgtitation) Anesthesia: Anesthesia Evaluation and General Other: No family available for phone consent. not coming into, has aphasia unable to speak to provide consent. Risk of > 500 ml blood loss (7ml/kg in children): No Other Pertinent Information Cefepime 08/07/21 @ 1600 Vancomycin 08/07/21 @ 1734 Metrodnidazole 08/07/21 @ 1922 Piperacillin Tazobactoam 08/08/21 @ 0621 Medications/Allergies Home Medications Medication Instructions Recorded Confirmed Last Taken Type atorvastatin 40 mg tablet 40 mg PO DAILY 08/07/21 08/07/21 Unknown History clopidogrel 75 mg tablet (Plavix) 75 mg PO DAILY 08/07/21 08/07/21 Unknown History insulin degludec 200 unit/mL (3 8 unit SUBCUT BEDTIME 08/07/21 08/07/21 Unknown History mL) subcutaneous pen (Tresiba FlexTouch U-200 insulin) isosorbide mononitrate 30 mg 30 mg PO DAILY 08/07/21 08/07/21 Unknown History tablet,extended release 24 hr losartan 50 mg tablet 50 mg PO DAILY 08/07/21 08/07/21 Unknown History melatonin 3 mg tablet 3 mg PO BEDTIME 08/07/21 08/07/21 Unknown History metformin 850 mg tablet 850 mg PO BID 08/07/21 08/07/21 Unknown History metoprolol tartrate 25 mg tablet 50 mg PO BID 08/07/21 08/07/21 Unknown History omeprazole 40 mg capsule,delayed 40 mg PO DAILY 08/07/21 08/07/21 Unknown History release polyethylene glycol 3350 17 17 g PO DAILY PRN 08/07/21 08/07/21 Unknown History gram/dose oral powder (Miralax) Allergies Allergy/AdvReac Type Severity Reaction Status Date / Time No Known Allergies Allergy Verified 08/07/21 13:54 Current Medications Generic Name Dose Route Start Last Admin Trade Name Freq PRN Reason Stop Dose Admin Hydromorphone HCl 0.4 mg 08/07/21 21:29 08/08/21 02:45 Hydromorphone 1 Mg/Ml Inj 1 Ml IVP 0.4 mg Q4H PRN Administration pain Piperacillin Sod/Tazobactam 50 mls @ 12.5 mls/hr 08/07/21 22:00 08/08/21 06:21 Sod 3.375 gm/ Sodium Chloride IV 12.5 mls/hr Q8H [place] Administration Protocol Sodium Chloride 1,000 mls @ 30 mls/hr 08/07/21 21:29 08/07/21 22:06 Sodium Chloride 0.9% IV 30 mls/hr .Q24H [place] Administration Labetalol HCl 10 mg 08/07/21 21:29 08/08/21 07:26 Labetalol 5 Mg/Ml Sdv 20ml IVP 10 mg Q6H PRN Administration bp>180/100mmhg PFSH Anesthesia Medical History Acute UTI Dementia Surgical History Surgical history unknown Family History Other Unknown family medical history Social History Smoking and tobacco status: unknown if ever smoked Alcohol intake: unknown Substance/Drug Use: unknown Data Anesthesia : 08/08/21 04:54 08/08/21 04:54 Short CBC 08/07/21 08/08/21 Range/Units 14:15 04:54 WBC 32.1 H* 33.4 H* (4.0-10.0) 10^3/uL Hgb 14.3 13.1 (11.5-15.3) g/dL Hct 43.0 39.8 (37.0-47.0) % MCV 95.8 96.4 (81-99) fl Plt Count 279 243 (130-400) 10^3/cmm Neut % (Auto) 92.7 91.8 % Neut # (Auto) 29.72 H 30.64 H (1.8-7.7) 10^3/uL BMP 08/07/21 08/08/21 14:15 04:54 Sodium 134 L 138 Potassium 4.2 3.8 Chloride 98 101 Carbon Dioxide 20 L 23 BUN 19 21 Creatinine 0.6 0.6 Glucose 392 H 319 H Calcium 8.4 L 7.7 L Cardiac Enzymes 08/07/21 08/07/21 08/07/21 Range/Units 14:15 16:42 20:07 Troponin T Baseline 22 H (0-10) ng/L Troponin T 120 Minute 19.85 H (0-10) ng/L Delta Troponin T -2.15 L (0-10) ABS# Troponin T Hi Sens 6Hr 22.32 H (0-10) ng/L Troponin T Hi Sens 6Hr Delta 0.32 (0-12) ng/L Liver Function 08/07/21 08/08/21 Range/Units 14:15 04:54 Total Bilirubin 0.6 0.4 (0.15-1.2) mg/dL AST 24 18 (0-32) U/L ALT 13 12 (0-33) U/L Alkaline Phosphatase 62 58 (35-105) IU/L Albumin 3.6 2.9 L (3.5-5.2) g/dL Urine 08/07/21 Range/Units 15:02 Urine Color Yellow (Yellow) Urine Appearance Clear (CLEAR) Urine pH 5 (5-7) Ur Specific [place] 1.015 (1.005-1.030) Urine Protein 3+ H (Negative) Urine Glucose (UA) 4+ H (Normal) Urine Ketones 2+ H (Negative) Urine Nitrate Negative (Negative) Urine Bilirubin Neg (Negative) Ur Leukocyte Esterase Negative (Negative) Urine RBC 0-4 H (0-2) /hpf Urine WBC Rare (0-5) /hpf COVID Results 08/07/21 15:25 Coronavirus 229E (PCR) Not detected SARS-CoV-2 (PCR) Not detected Coags 08/08/21 04:54 C-Reactive Protein 232.0 H Microbiology 08/07/21 14:15 Blood Culture - Preliminary Blood SPECIMEN COLLECTED 08/07/21 14:10 Blood Culture - Preliminary Blood SPECIMEN COLLECTED Cardiac Studies: Echocardiogram 08/08/21
[2021-08-08] MEDS: pantoprazole 40 mg SDV IVP ×2 (08:54→17:57)
--- NOTE | 2021-08-08 09:02 | PC.NURSE ---
surgery consent unable to obtain surgical consent due to patient having demntia and unable to verbalize, no number for on file, family friend reported being unable to speak appropriately due to stroke Hx
--- NOTE | 2021-08-08 09:33 | PC.NURSE ---
came in, signed consent form
--- NOTE | 2021-08-08 10:05 | PC.CHAP ---
Pastoral Care Encounter/Spiritual Assessment Type of Contact [] Declined consulting group analyst visit [] Patient/Family/Request visit [] Outpatient visit [] Follow-up visit [] Physician referral [] Code/Alert [x] Routine visit [] Staff referral [] Actively dying [] Patient sleeping [] Family support [] [] Out of room [] Palliative care [] [x] Receiving care in room [] Pre-surgical visit [] Trauma [] Long length of stay [x] ICU visit [] Other: Relational/Emotional Strength [] Patient feels connected with others/family/visitors/staff [] Distress [] Loneliness/isolation [] Abandonment Spirituality of Patient [] Person of Kelsea [] Attends Yarsani of their Kelsea [] Believes in Prayer [] Reads Bible or Yarsanism materials [] There are Spiritual issues to be addressed Body And Frame Man Interventions [x] Prayer [] Active listening [] Non-anxious presence [] Spiritual/emotional support [] Crisis/trauma care [] Spiritual counseling [] Bereavement support [] Provided bereavement packet [] Provided Bible/devotional materials [] Provided toy/stuffed animal, coloring book to patient or family member [] Provided Communion [] Anointing/[place] [] Salvation [x] Completed spiritual assessment [] Other: Impact on Illness or Injury [] Angry [] Fearful [] Anxious [] Often cries [] Exhaustion [] Unable to work [] Unable to attend christian [] Unable to walk/stand [] Unable to read [] Unable to drive [] Unable to eat/drink [] Unable to sleep [] Unable to be with family [] Patient intubated [] Other: Summary Time spent with patient
--- NOTE | 2021-08-08 10:12 | P.CONIM_ITS ---
Providers/Reason For Consult Consulting Physician/Specialty*: General Surgery Dr. Restrepo Reason for Consult*: Acute cholecystitis Requesting Physician: Jose Alejandro Cook Attending Physician: Jose Alejandro Cook History of Present Illness History of Present Illness Information obtained from patient's chart and family as she is not awake or oriented Jeancarlos Hernandez is a 86 year old female who was hospitalized for complicated UTI at [facility] 2 weeks ago and subsequently sent to rehab. About a day ago patient had nausea and vomiting and became more disoriented and was [facility]. In the ER patient was noted to have a white count of 30 5K and CTA did not show evidence of ischemic bowel but there was evidence of acute cholecystitis with a 9 mm stone in the gallbladder neck. Review of Systems General: Reports: ROS unobtainable due to mental status Medications/Allergies Home Medications Medication Instructions Recorded Confirmed Last Taken Type atorvastatin 40 mg tablet 40 mg PO DAILY 08/07/21 08/07/21 Unknown History clopidogrel 75 mg tablet (Plavix) 75 mg PO DAILY 08/07/21 08/07/21 Unknown History insulin degludec 200 unit/mL (3 8 unit SUBCUT BEDTIME 08/07/21 08/07/21 Unknown History mL) subcutaneous pen (Tresiba FlexTouch U-200 insulin) isosorbide mononitrate 30 mg 30 mg PO DAILY 08/07/21 08/07/21 Unknown History tablet,extended release 24 hr losartan 50 mg tablet 50 mg PO DAILY 08/07/21 08/07/21 Unknown History melatonin 3 mg tablet 3 mg PO BEDTIME 08/07/21 08/07/21 Unknown History metformin 850 mg tablet 850 mg PO BID 08/07/21 08/07/21 Unknown History metoprolol tartrate 25 mg tablet 50 mg PO BID 08/07/21 08/07/21 Unknown History omeprazole 40 mg capsule,delayed 40 mg PO DAILY 08/07/21 08/07/21 Unknown History release polyethylene glycol 3350 17 17 g PO DAILY PRN 08/07/21 08/07/21 Unknown History gram/dose oral powder (Miralax) Allergies Allergy/AdvReac Type Severity Reaction Status Date / Time No Known Allergies Allergy Verified 08/07/21 13:54 Current Medications Generic Name Dose Route Start Last Admin Trade Name Freq PRN Reason Stop Dose Admin Hydromorphone HCl 0.4 mg 08/07/21 21:29 08/08/21 08:55 Hydromorphone 1 Mg/Ml Inj 1 Ml IVP 0.4 mg Q4H PRN Administration pain Piperacillin Sod/Tazobactam 50 mls @ 12.5 mls/hr 08/07/21 22:00 08/08/21 06:21 Sod 3.375 gm/ Sodium Chloride IV 12.5 mls/hr Q8H CLIFTON Administration Protocol Sodium Chloride 1,000 mls @ 30 mls/hr 08/07/21 21:29 08/07/21 22:06 Sodium Chloride 0.9% IV 30 mls/hr .Q24H CLIFTON Administration Labetalol HCl 10 mg 08/07/21 21:29 08/08/21 07:26 Labetalol 5 Mg/Ml Sdv 20ml IVP 10 mg Q6H PRN Administration bp>180/100mmhg Pantoprazole Sodium 40 mg 08/08/21 09:00 08/08/21 08:54 Pantoprazole 40 Mg Sdv IVP 40 mg BID CLIFTON Administration PFSH Acute PFSH: Medical History Acute UTI Dementia Surgical History Surgical history unknown Family History Other Unknown family medical history Social History Smoking and tobacco status: unknown if ever smoked Alcohol intake: unknown Substance/Drug Use: unknown Vitals/I&O/Wt Last Vital Signs Temp 100.3 F H 08/08/21 07:09 Pulse 97 08/08/21 09:00 Resp 13 08/08/21 09:00 BP 192/90 08/08/21 09:00 Pulse Ox 91 08/08/21 09:00 08/07/21 08/08/21 08/08/21 22:59 06:59 14:59 Intake Total 1400 / 1450 50 / 1450 Output Total 1050 / 1150 100 / 1150 Balance 350 / 300 -50 / 300 Weight last 48 hrs Weight 108 lb Physical Exam Narrative: HEENT: Normocephalic Eye: Sclera /conjunctiva normal Respiratory and chest: Bilateral clear breath sounds on auscultation Cardiovascular: Pansystolic murmur Abdomen: Soft to palpation, tender right upper quadrant, positive Dixon sign, well-healed midline laparotomy scar Neurological: Not arousable, Skin: Intact, no lesions appreciated on gross exam Urinary Catheter Management: Salcedo: Cath Placed During This Visit: yes Reason for Continuing Indwelling Catheter: Accurate Measurement of Urinary Output in Critically Ill Patients Urinary Catheter Date of Insertion: 08/07/21 Urinary Catheter Time of Insertion: 15:33 Data : 08/08/21 04:54 08/08/21 04:54 Micro: Microbiology 08/07/21 14:15 Blood Culture - Preliminary Blood SPECIMEN COLLECTED 08/07/21 14:10 Blood Culture - Preliminary Blood SPECIMEN COLLECTED A&P Assessment and plan (1) Acute cholecystitis: 86-year-old female who was admitted from rehab due to altered mental status, nausea and vomiting. She was tender in the right upper quadrant, positive Dixon sign. During work-up which included CT abdomen pelvis, ultrasound gallbladder and CTA she was noted to have acute calculus cholecystitis with significant inflammation in the right upper quadrant. Her WBC was 30 4K. Patient is hemodynamically stable. Patient's wants to continue with full treatment if possible. Patient is admitted to the ICU for monitoring IV Zosyn Plan for laparoscopic possible open cholecystectomy today Procedure, risks, benefits and alternatives have been discussed with the patient's who wishes to proceed with surgery. Discussed with the patient's about the possibility of abandoning the procedure if inflammat ion is significant and there is risk of complications is higher due to significant inflammation noted on CT scan. Status: Acute Consult Attestations Medical Necessity Statement: As per attending physician Coding Level of Care Code Acute Tool Repairer for [facility] Diagnoses Acute cholecystitis K81.0
--- NOTE | 2021-08-08 10:26 | PC.NURSE ---
OR staff taking patient to OR at this time, family at bedside
--- NOTE | 2021-08-08 11:05 | P.PN_ITS ---
Subjective Subjective: The patient is in ICU. No acute distress. Confused disoriented. No vomiting. No shortness of breath. No chills. Medications: Medication Review Details: Generic Name Dose Route Start Last Admin Trade Name Freq PRN Reason Stop Dose Admin Hydromorphone HCl 0.4 mg 08/07/21 21:29 08/08/21 08:55 Hydromorphone 1 Mg/Ml Inj 1 Ml IVP 0.4 mg Q4H PRN Administration pain Piperacillin Sod/T azobactam 50 mls @ 12.5 mls /hr 08/07/21 22:00 08/08/21 06:21 Sod 3.375 gm/ So dium Chloride IV 12.5 mls/hr Q8H CL[place]ON Administration Protocol Sodium Chloride 1,000 mls @ 30 ml s/hr 08/07/21 21:29 08/07/21 22:06 Sodium Chloride 0.9% IV 30 mls/hr .Q24H CL[place]ON Administration Labetalol HCl 10 mg 08/07/21 21:29 08/08/21 07:26 Labetalol 5 Mg/M l Sdv 20ml IVP 10 mg Q6H PRN Administration bp>180/100mmhg Pantoprazole Sodiu m 40 mg 08/08/21 09:00 08/08/21 08:54 Pantoprazole 40 Mg Sdv IVP 40 mg BID CLIFTON Administration Vitals/I&O/Wt Last Vital Signs Temp 100.3 F H 08/08/21 07:09 Pulse 97 08/08/21 09:00 Resp 13 08/08/21 09:00 BP 192/90 08/08/21 09:00 Pulse Ox 91 08/08/21 09:00 08/07/21 08/08/21 08/08/21 22:59 06:59 14:59 Intake Total 1400 / 1400 50 / 1450 Output Total 1050 / 1050 100 / 1150 Balance 350 / 350 -50 / 300 Weight last 48 hrs Weight 48.988 kg Physical Exam Narrative: Confused and disoriented. Does not follow instructions. No acute distress. Moving her upper and lower extremities nonpurposeful movements Not able to communicate because of confusion Abdomen distended right quadrant, tender to palpation, no guarding or rigidity S1, S2, systolic murmur Clear to auscultation bilaterally. No wheezes. No respiratory distress. Skin is warm and dry. Moist mucous memories No JVD Peripheral edema. No cyanosis. No calf tenderness bilaterally. Urinary Catheter Management: Salcedo: Cath Placed During This Visit: yes Reason for Continuing Indwelling Catheter: Accurate Measurement of Urinary Output in Critically Ill Patients Urinary Catheter Date of Insertion: 08/07/21 Urinary Catheter Time of Insertion: 15:33 Data : 08/08/21 04:54 08/08/21 04:54 Micro: Microbiology 08/07/21 14:15 Blood Culture - Preliminary Blood SPECIMEN COLLECTED 08/07/21 14:10 Blood Culture - Preliminary Blood SPECIMEN COLLECTED A&P Assessment and plan (1) Acute cholecystitis: Status: Acute (2) Altered mental status: Status: Acute (3) Fever: Status: Acute (4) Sepsis: Status: Acute (5) Acute UTI: Status: Acute Plan Sepsis related to acute cholecystitis Gallstone related cholecystitis Gallstone in neck of the bladder Bilirubin normal AST ALT normal Does not have typical cholangitis signs No signs of colitis N.p.o. IV fluid hydration Start Zosyn Hold metformin and losartan RCRI:3 points, class IV 50% risk of 30-day mortality, considering urgency of surgical intervention would recommend cardiac echo, serial troponin and EKG Sinus tachycardia is appropriate to her fever Continue IV fluids Requested urine and blood culture Abnormal UA, requested urine culture. Hypertensive urgency patient takes metoprolol at home, she wanted to take anything p.o., I will give her IV labetalol push for as needed usage Bilateral lower extremity edema, pansystolic murmur I will request echo I do not have any previous records to know about her medical history in detail Requested records from [facility] Type 2 diabetes hold metformin Accu-Cheks every 4 hours, patient is n.p.o. She is high risk for cholangitis, complications related to sepsis, septic shock, peritonitis, , all the risk factors and potential complications were conveyed in simple terms to her friend Chad See has expressive aphasia he is able to comprehend appropriately Friend is expecting a call from the surgeon in the morning She is full code for now, please rediscuss goals of care in the morning once is here DVT prophylaxis: SCDs [place] Severe sepsis secondary to acute gallstone cholecystitis. Continuing IV fluids, Zosyn, pain medications. We will monitor chemistry panel and CBC. Appreciate Dr. Restrepo's input. The patient will probably undergo cholecystectomy today. Acute metabolic encephalopathy secondary to #1. Baseline dementia. Hypertension. Uncontrolled. I suspect this could be secondary to pain. Di scussed with the nurse. We will continue pain management. We will continue as needed labetalol and hydralazine. Diabetes. We will order insulin sliding scale. Systolic murmur. Due to moderate aortic stenosis I suspect. Echo CONCLUSIONS ?Mild left ventricular hypertrophy.? ?LV ejection fraction around 55%.? ?No gross wall motion normalities. ?Grade I/IV diastolic dysfunction (abnormal relaxation filling ?pattern), normal to mildly elevated filling pressures. ?Moderate aortic valve stenosis, mean gradient 20 mmHg, DEAN 1.1 ?cm squared.? (Peak velocity of 2.95 m/s with a peak gradient of 35 ?mmHg). ?Mild mitral annular calcification. ?Mildly increased left atrial size. ?[id number] tricuspid valve regurgitation. ?Estimated pulmonary artery peak systolic pressure was 17 mmHg ?There is no pericardial effusion. ?There are no intracardiac masses. ?No similar previous studies are available for comparison DVT prophylaxis. SCDs. Will consider anticoagulation when it is safe from the surgical standpoint. Discussed with multidisciplinary team. Attestations Medical Necessity Statement*: The patient is in pretty critical condition with high risk of decompensation. Requires ICU monitoring and management. I expect that the patient will spend the next several days in the hospital Coding Level of Care Code Acute Multigrapher for Chg Fwd Diagnoses Acute cholecystitis K81.0 Altered mental status R41.82 Fever R50.9 Sepsis A41.9 Acute UTI N39.0
--- NOTE | 2021-08-08 11:56 | PM.OP ---
Operative Report Date of procedure: August 08, 2021 Pre-op diagnosis: Acute gangrenous cholecystitis Post-op diagnosis: Acute gangrenous cholecystitis Procedure done: Laparoscopic cholecystectomy Specimens removed/disposition: Gallbladder Surgeon: Bill Restrepo Anesthesia: General Condition: stable Disposition: PACU Procedure: The patient was taken to the operating room and was intubated under general anesthesia. After the antibiotic had been administered, the abdomen was prepped and draped in a sterile manner. Using a #15 blade, a 1 centimeter infraumbilical curvilinear incision was made and using an open Noa technique the peritoneal cavity was entered. A 10 millimeter port was placed and 15 millimeters of pneumoperitoneum was created. A 10 millimeter, 30 degrees scope was then introduced. Three 5 millimeter ports were placed in the epigastric, midclavicular and the anterior axillary line two fingerbreadths below the costal margin on the right side under the direct visualization. The gallbladder appeared to be acutely inflamed and the omentum was adherent to the gallbladder, using suction cloth worker the omentum was peeled off the body of the gallbladder revealing a gangrenous gallbladder. The gallbladder was distended and therefore using an aspiration needle about 60 cc of bloody bile was aspirated. Ratcheted forceps were introduced into the lateral most port and was used to retract the fundus of the gallbladder cephalad and using forceps the infundibulum of the gallbladder was retracted laterally. Using L-hook cautery the peritoneum overlying the Calot's triangle was opened medially and laterally until the cystic duct and the cystic artery were skeletonized. Dissection was carried along the body of the gallbladder and after ensuring critical view of safety, 4 clips applied on the cystic duct and 3 clips applied on the cystic artery and cut leaving, 3 clips on the remaining portion of the duct and 2 clips on the remaining portion of the artery. The rest of the gallbladder was dissected off the liver using L-hook cautery. There was no evidence of bile leakage noted from the gallbladder fossa and the clips appeared to be in place. There was mild oozing from the fossa, after ensuring adequate hemostasis with electrocautery of 4 x 8 cm Surgicel was placed in the gallbladder fossa. EndoCatch bag was introduced to remove the gallbladder. The right upper quadrant was irrigated with 1 L of saline. All the ports were removed under direct visualization and there was no bleeding noted from the port sites. The fascia of the umbilicus was closed using [id number] 0 Vicryl sutures and the subcutaneous tissue was approximated using 3-0 Vicryl sutures. The skin at all four ports were closed using 4-0 Monocryl and Dermabond. A total of 10 millimeters of 0.5% Marcaine was infiltrated around the port sites. The patient was stable throughout the procedure.
--- NOTE | 2021-08-08 12:21 | PC.NURSE ---
Patient back from OR, currently intubated with no sedation orders, Dr. Cook notified, family at bedside
[2021-08-08] MEDS: sodium chloride 0.9% 1,000 ML 30 ML IV ×2 (12:48→15:00)
--- NOTE | 2021-08-08 12:49 | PC.NURSE ---
Dr. Cook at bedside, gave v.o. for fentanyl drip
[2021-08-08 13:55] LABS: ABG PCO2 31.3 mmHg (35-45); ABG PH Result 7.47 (7.35-7.45); Arterial Blood Gas Hematocrit 34.7 % (37-47); Base Excess ABG -0.6 mmol/L (-2.0-2.0); Blood Gas Sample Type Arterial; HCO3 ABG 22.6 mmol/L (22-26); PO2 ABG 99.8 mmHg (80.0-100.0)
[2021-08-08 13:56] LABS: Blood Gas Sample Site Brachial, right; Blood Gas Tidal Volume 0.42; Oxygen Device VENT
--- NOTE | 2021-08-08 14:11 | PC.NURSE ---
Patient breating a VT of less than a 100, RR 4 while off vent support but bitting the ET tube. Dr. Cazares approved t.o. for propofolol drip
[2021-08-08] MEDS: propofol 1,000 MG/100 ML INJ 2.94 MG IV (14:20)
--- NOTE | 2021-08-08 15:03 | ANE.PACU2 ---
Inpatient post-anesthesia follow up: Airway intact: Yes Vital signs: Temperature 100.3 F Pulse Rate 91 Respiratory Rate 16 Blood Pressure 131/64 Pulse Oximetry 99 Oxygen Delivery Me thod Room Air Oxygen Flow Rate Fraction of Inspir ed Oxygen 40 Hydration adequate: Yes Pain level: 1 Mental status: Altered Additional Comments: Patient taken to ICU intubated and sedated. Hand ventilated throughout, VSS stable throughout transport. Report given and accepted.
[2021-08-08 17:47] LABS: Glucose Point of Care 361 mg/dL (70-110)
[2021-08-08] MEDS: insulin lispro 100 unit/1 mL SUBCUT ×2 (17:56→22:33)
[2021-08-08] MEDS: piperacillin-tazobactam 3.375 GM in sodium chloride 0.9% (plus) 100 ML IV (21:26)
[2021-08-08 21:34] LABS: Glucose Point of Care 241 mg/dL (70-110)
[2021-08-09] VITALS (54 sets, daily range): BP systolic 90–133; BP diastolic 46–66; PULSE 94–112; RESP 12–19; TEMP 39.1–39.6; O2SAT 90–97
[2021-08-09] MEDS: HYDROmorphone 1 mg/mL INJ 1 mL 0.4 MG IVP (02:55)
--- NOTE | 2021-08-09 03:00 | PC.NURSE ---
HYDROMORPHONE WASTE This nurse pulled pre-filled syringe plunger back to find/remove air bubble prior to administration. Plunger came completely out of syringe. Wasted medicine with ALIDA Rodrigez
[2021-08-09 04:22] LABS: Glucose Point of Care 128 mg/dL (70-110)
[2021-08-09] MEDS: propofol 1,000 MG/100 ML INJ 7.35 MG IV (04:25)
[2021-08-09] MEDS: piperacillin-tazobactam 3.375 GM in sodium chloride 0.9% (plus) 100 ML IV ×2 (04:31→17:05)
[2021-08-09 04:59] LABS: Basophils % 0.3 %; Hematocrit 31.6 % (37.0-47.0); Hemoglobin 9.8 g/dL (11.5-15.3); Lymphocytes # 0.5 10^3/uL (0.8-4.8); Lymphocytes % 4.6 %; Mean Corpuscular Hemoglobin 31.2 pg (28.0-34.0); Mean Corpuscular Volume 100.6 fl (81-99); Mean Platelet Volume 11.1 fL (7.4-10.4); Monocytes # 0.5 10^3/uL (0.2-0.9); Monocytes % 4.3 %; Neutrophils # 10.44 10^3/uL (1.8-7.7); Neutrophils % 90.1 %; Nucleated Red Blood Cells % 0 %; Platelet Count 184 10^3/cmm (130-400); Red Blood Count 3.14 10^6/uL (4.1-5.3); Red Cell Distribution Width 13.6 % (12.1-15.1); White Blood Count 11.6 10^3/uL (4.0-10.0)
[2021-08-09 05:06] LABS: ABG PCO2 34.5 mmHg (35-45); ABG PH Result 7.44 (7.35-7.45); Alveolar-Arterial Oxygen Gradi 9.3 mmHg (5-10); Base Excess ABG -0.1 mmol/L (-2.0-2.0); Blood Gas Operator Identificat JB; Blood Gas Sample Site Brachial, right; Blood Gas Sample Type Arterial; Blood Gas Tidal Volume 0.38; Carboxyhemoglobin 0.2 %THgb (0.4-20.1); HCO3 ABG 23.6 mmol/L (22-26); HGB O2 Sat 94.8 % (95-100); Methemoglobin 1.1 % (0.4-1.5); Oxygen Device VENT; Oxygen Saturation ABG 96.1; PO2 ABG 84.4 mmHg (80.0-100.0); Potassium Level - ABG 3.5 mmol/L (3.5-5.0); Total Hemoglobin 12.1 g/dL (12-16)
[2021-08-09 05:15] LABS: Alanine Aminotransferase 22 U/L (0-33); Albumin Level 2.5 g/dL (3.5-5.2); Alkaline Phosphatase 39 IU/L (35-105); Anion Gap 16.3 (5-19); Aspartate Amino Transferase 45 U/L (0-32); Blood Urea Nitrogen 33 mg/dL (8-23); Calcium 6.8 mg/dL (8.5-10.5); Carbon Dioxide 23 mmol/L (22-29); Chloride 103 mmol/L (98-107); Globulin 2.6 g/dL (1.3-4.6); Glucose 115 mg/dL (65-115); Osmolality Calculated 296 mOsm/kg (285-295); Potassium 3.3 mmol/L (3.5-5.1); Sodium 139 mmol/L (136-145); Total Bilirubin 0.3 mg/dL (0.15-1.2); Total Protein 5.1 g/dL (6.6-8.7)
[2021-08-09 05:21] LABS: Slide Review Slide Review Perform
[2021-08-09] MEDS: pantoprazole 40 mg SDV IVP ×2 (07:57→17:37)
--- NOTE | 2021-08-09 08:33 | PC.NURSE ---
Voalte message sent to regarding temp, xray and NG
--- NOTE | 2021-08-09 08:34 | PC.NURSE ---
Sedation has been weaned to check memtation
[2021-08-09] MEDS: lactated ringers 1,000 ML 75 ML IV ×2 (09:18→21:09)
[2021-08-09] MEDS: potassium chloride premix 100 ML 50 MEQ IV (09:19)
[2021-08-09] MEDS: acetaminophen 650 mg Supp PR ×3 (09:25→23:57)
[2021-08-09 09:39] LABS: Glucose Point of Care 137 mg/dL (70-110)
--- NOTE | 2021-08-09 11:20 | P.PN_ITS ---
Subjective Subjective: Patient does not follow commands, on minimal vent settings, has been febrile, WBC is down to 11 from 33 after cholecystectomy yesterday Medications: Reviewed: Yes Vitals/I&O/Wt Last Vital Signs Temp 103.2 F H 08/09/21 11:00 Pulse 104 H 08/09/21 11:00 Resp 15 08/09/21 10:14 BP 111/60 08/09/21 11:00 Pulse Ox 97 08/09/21 11:00 08/08/21 08/09/21 08/09/21 22:59 06:59 14:59 Intake Total 196.083 / 867.521 180.438 / 842.925 7580.748 / 1195.748 Output Total 100 / 100 Balance 96.083 / 767.521 180.438 / 957.244 5987.748 / 1195.748 Weight last 48 hrs Weight 108 lb Physical Exam Narrative: Abdomen: Soft, nondistended, incision clean dry and intact On mechanical ventilation Urinary Catheter Management: Salcedo: Cath Placed During This Visit: yes Reason for Continuing Indwelling Catheter: Accurate Measurement of Urinary Output in Critically Ill Patients Urinary Catheter Date of Insertion: 08/07/21 Urinary Catheter Time of Insertion: 15:33 Data : 08/09/21 03:25 08/09/21 03:25 Micro: Microbiology 08/08/21 02:50 Urine Culture - Preliminary Urine Catheterized 08/07/21 14:15 Blood Culture - Preliminary Blood NEGATIVE TO DATE 08/07/21 14:10 Blood Culture - Preliminary Blood NEGATIVE TO DATE A&P Assessment and plan (1) Status post laparoscopic cholecystectomy: 85-year-old female status post laparoscopic cholecystectomy for acute gangrenous cholecystitis. Patient is febrile to 103 but WBC is down to 11.6 Continue IV Zosyn Medical management as per hospitalist service If patient is awake after extubation, can start clear liquid diet Status: Acute Attestations Medical Necessity Statement*: Status post lap [place] with sepsis requiring continued inpatient stay Coding Level of Care Code Acute Outreach Manager for Chg Fwd Diagnoses Status post laparoscopic cholecystectomy Z90.49
[2021-08-09 12:14] LABS: Glucose Point of Care 137 mg/dL (70-110)
--- NOTE | 2021-08-09 13:28 | PM.PN ---
Subjective Subjective: Sedation and pain medications were discontinued earlier this morning. However as of now the patient is still sedated and unresponsive. On mechanical ventilation. No acute distress. Occasional slight grimacing. Does not move extremities. Medications: Reviewed: Yes Medication Review Details: Generic Name Dose Route Start Last Admin Trade Name Freq PRN Reason Stop Dose Admin Acetaminophen 650 mg 08/09/21 08:41 08/09/21 09:25 Acetaminophen 65 0 Mg Supp NE 650 mg Q6H PRN Administration FEVER Hydromorphone HCl 0.4 mg 08/07/21 21:29 08/09/21 02:55 Hydromorphone 1 Mg/Ml Inj 1 Ml IVP 0.4 mg Q4H PRN Administration pain Fentanyl 2,500 mcg / Sodium 250 mls @ 0 mls/h r 08/08/21 12:30 08/09/21 09:30 Chloride IV 0 mcg/hr .Q0M CLIFTON 0 mls/hr Titration Protocol Per Protocol Propofol 1,000 mg in 100 m ls @ 0 mls/hr 08/08/21 14:15 08/09/21 08:29 Diprivan IV 0 mcg/kg/min .Q0M CLIFTON 0 mls/hr Titration Protocol Per Protocol Lactated Ringer's 1,000 mls @ 75 ml s/hr 08/09/21 08:45 08/09/21 09:18 Lactated Ringers IV 75 mls/hr .[id number] CLIFTON Administration Insulin Human Lisp ro 0 unit 08/08/21 11:30 08/09/21 11:09 Insulin Lispro 1 00 Unit/1 Ml SUBCUT Not Given Q6H CLIFTON Protocol Labetalol HCl 10 mg 08/07/21 21:29 08/08/21 07:26 Labetalol 5 Mg/M l Sdv 20ml IVP 10 mg Q6H PRN Administration bp>180/100mmhg Pantoprazole Sodiu m 40 mg 08/08/21 09:00 08/09/21 07:57 Pantoprazole 40 Mg Sdv IVP 40 mg BID CLIFTON Administration Vitals/I&O/Wt Last Vital Signs Temp 103.2 F H 08/09/21 11:00 Pulse 104 H 08/09/21 11:00 Resp 15 08/09/21 13:00 BP 111/60 04/23/22 11:00 Pulse Ox 96 08/09/21 13:00 08/08/21 08/09/21 08/09/21 22:59 06:59 14:59 Intake Total 196.083 / 687.083 180.438 / 670.310 5436.748 / 1295.748 Output Total 100 / 100 Balance 96.083 / 587.083 180.438 / 165.171 8022.748 / 1295.748 Weight last 48 hrs Weight 48.988 kg Physical Exam Narrative: Sedated, unresponsive, does not move extremities. No acute distress. Skin is warm and dry. Moist mucous membranes Pinpoint reactive pupils bilaterally. Neck no JVD Abdomen is soft, nontender, bowel sounds are weak S1, S2, systolic murmur Clear to auscultation bilaterally. No wheezes. No respiratory distress. Skin is warm and dry. Peripheral edema. No cyanosis. No calf tenderness bilaterally. Urinary Catheter Management: Salcedo: Cath Placed During This Visit: yes Reason for Continuing Indwelling Catheter: Accurate Measurement of Urinary Output in Critically Ill Patients Urinary Catheter Date of Insertion: 08/07/21 Urinary Catheter Time of Insertion: 15:33 Data : 08/09/21 03:25 08/09/21 03:25 Micro: Microbiology 08/08/21 02:50 Urine Culture - Preliminary Urine Catheterized 08/07/21 14:15 Blood Culture - Preliminary Blood NEGATIVE TO DATE 08/07/21 14:10 Blood Culture - Preliminary Blood NEGATIVE TO DATE A&P Assessment and plan (1) Acute cholecystitis: Status: Acute (2) Altered mental status: Status: Acute (3) Fever: Status: Acute (4) Sepsis: Status: Acute (5) Acute UTI: Status: Acute Plan Sepsis related to acute cholecystitis Gallstone related cholecystitis Gallstone in neck of the bladder Bilirubin normal AST ALT normal Does not have typical cholangitis signs No signs of colitis N.p.o. IV fluid hydration Start Zosyn Hold metformin and losartan RCRI:3 points, class IV 50% risk of 30-day mortality, considering urgency of surgical intervention would recommend cardiac echo, serial troponin and EKG Sinus tachycardia is appropriate to her fever Continue IV fluids Requested urine and blood culture Abnormal UA, requested urine culture. Hypertensive urgency patient takes metoprolol at home, she wanted to take anything p.o., I will give her IV labetalol push for as needed usage Bilateral lower extremity edema, pansystolic murmur I will request echo I do not have any previous records to know about her medical history in detail Requested records from [facility] Type 2 diabetes hold metformin Accu-Cheks every 4 hours, patient is n.p.o. She is high risk for cholangitis, complications related to sepsis, septic shock, peritonitis, , all the risk factors and potential complications were conveyed in simple terms to her friend Chad See has expressive aphasia he is able to comprehend appropriately Friend is expecting a call from the surgeon in the morning She is full code for now, please rediscuss goals of care in the morning once is here DVT prophylaxis: SCDs [place] Severe sepsis secondary to acute gallstone cholecystitis. Stable now. Continuing IV fluids, Zosyn, pain medications. Status post lap cholecystectomy. Appreciate Dr. Restrepo's input. Acute respiratory failure secondary to #1 and anesthesia. As of now the patient is still not ready for extubation. Discussed with the respiratory therapist. I am hoping that she will wake up soon to be able to extubate. We will minimize pain medications and try to avoid sedation. Acute metabolic encephalopathy secondary to #1. Baseline dementia. Hypertension. Improved. We will continue as needed labetalol and hydralazine. Diabetes. insulin sliding scale. Anemia. Stable. Monitor. Hypokalemia. Will replace and monitor. Systolic murmur. Due to moderate aortic stenosis I suspect. Echo CONCLUSIONS ?Mild left ventricular hypertrophy.? ?LV ejection fraction around 55%.? ?No gross wall motion normalities. ?Grade I/IV diastolic dysfunction (abnormal relaxation filling ?pattern), normal to mildly elevated filling pressures. ?Moderate aortic valve stenosis, mean gradient 20 mmHg, DEAN 1.1 ?cm squared.? (Peak velocity of 2.95 m/s with a peak gradient of 35 ?mmHg). ?Mild mitral annular calcification. ?Mildly increased left atrial size. ?[id number] tricuspid valve regurgitation. ?Estimated pulmonary artery peak systolic pressure was 17 mmHg ?There is no pericardial effusion. ?There are no intracardiac masses. ?No similar previous studies are available for comparison DVT prophylaxis. SCDs. Will consider anticoagulation when it is safe from the surgical standpoint. Discussed with multidisciplinary team. Critical care time spent on this encounter is 40 minutes. Attestations Medical Necessity Statement*: Intubated, vented. Requires ICU. Coding Level of Care Code Acute Virtual Office Assistant for [facility] [employer] Fwd Diagnoses Acute cholecystitis K81.0 Altered mental status R41.82 Fever R50.9 Sepsis A41.9 Acute UTI N39.0
--- NOTE | 2021-08-09 14:59 | PC.NURSE ---
Addendum entered by Rufus Zhong RN 08/09/21 15:03: Wasted 160ml fentanyl with Leonarda CACERES. Original Note: wasted 160 mls of Fentanyl with Rufus IRWIN
[2021-08-09] MEDS: heparin 5,000 unit/mL INJ 1 mL 5000 UNIT SUBCUT (15:28)
--- NOTE | 2021-08-09 15:36 | PC.NURSE ---
Darkened, tough area on sacrum, skin is intact
[2021-08-09 17:17] LABS: Glucose Point of Care 158 mg/dL (70-110)
[2021-08-09] MEDS: insulin lispro 100 unit/1 mL SUBCUT ×2 (17:22→23:49)
[2021-08-09 18:33] LABS: Glucose Point of Care 141 mg/dL (70-110)
[2021-08-09 23:49] LABS: Glucose Point of Care 165 mg/dL (70-110)
[2021-08-10] VITALS (60 sets, daily range): BP systolic 102–139; BP diastolic 53–73; PULSE 86–110; RESP 12–20; TEMP 37.1–38.3; O2SAT 91–100
[2021-08-10] MEDS: heparin 5,000 unit/mL INJ 1 mL 5000 UNIT SUBCUT ×2 (02:23→14:15)
[2021-08-10 03:26] LABS: ABG PCO2 33.5 mmHg (35-45); ABG PH Result 7.39 (7.35-7.45); Arterial Blood Gas Hematocrit 26.2 % (37-47); Blood Gas Allen Test Pos; Blood Gas Sample Site Radial, right; Blood Gas Sample Type Arterial; Blood Gas Tidal Volume 0.38; HCO3 ABG 20.4 mmol/L (22-26); Oxygen Device VENT; PO2 ABG 83.8 mmHg (80.0-100.0)
[2021-08-10 04:16] LABS: Basophils % 0.3 %; Hematocrit 26.2 % (37.0-47.0); Hemoglobin 8.3 g/dL (11.5-15.3); Lymphocytes # 0.8 10^3/uL (0.8-4.8); Lymphocytes % 5.2 %; Mean Corpuscular HGB Conc 31.7 g/dL (30.0-36.0); Mean Corpuscular Hemoglobin 31.8 pg (28.0-34.0); Mean Corpuscular Volume 100.4 fl (81-99); Monocytes # 0.3 10^3/uL (0.2-0.9); Neutrophils # 14.32 10^3/uL (1.8-7.7); Neutrophils % 91.8 %; Nucleated Red Blood Cells % 0 %; Platelet Count 174 10^3/cmm (130-400); Red Blood Count 2.61 10^6/uL (4.1-5.3); White Blood Count 15.6 10^3/uL (4.0-10.0)
[2021-08-10 04:28] LABS: Alanine Aminotransferase 36 U/L (0-33); Albumin Level 2.1 g/dL (3.5-5.2); Alkaline Phosphatase 53 IU/L (35-105); Anion Gap 18.7 (5-19); Aspartate Amino Transferase 90 U/L (0-32); Blood Urea Nitrogen 48 mg/dL (8-23); Calcium 6.7 mg/dL (8.5-10.5); Carbon Dioxide 20 mmol/L (22-29); Chloride 107 mmol/L (98-107); Globulin 2.8 g/dL (1.3-4.6); Glucose 107 mg/dL (65-115); Magnesium 1.5 mg/dL (1.7-2.3); Osmolality Calculated 307 mOsm/kg (285-295); Potassium 3.7 mmol/L (3.5-5.1); Sodium 142 mmol/L (136-145); Total Bilirubin 0.4 mg/dL (0.15-1.2); Total Protein 4.9 g/dL (6.6-8.7)
[2021-08-10] MEDS: piperacillin-tazobactam 3.375 GM in sodium chloride 0.9% (plus) 100 ML IV ×2 (04:48→16:03)
[2021-08-10 05:00] LABS: Glucose Point of Care 104 mg/dL (70-110)
[2021-08-10 05:03] LABS: Slide Review Slide Review Perform
--- NOTE | 2021-08-10 06:00 | XRR_ITS ---
PROCEDURE INFORMATION: Exam: XR Chest Exam date and time: 08/10/2021 4:31 AM Age: 86 years old Clinical indication: Dyspnea; Additional info: Intubated TECHNIQUE: Imaging protocol: XR of the chest. Views: 1 view. COMPARISON: CR XR chest 1V portable [id number] 08/07/2021 1:55 PM FINDINGS: Tubes, catheters and devices: Endotracheal tube terminates approximately 2.4 cm above the raffi. Lungs: Unremarkable. No consolidation. Pleural spaces: Probable small bilateral pleural effusions. No pneumothorax. Heart/Mediastinum: Unremarkable. No cardiomegaly. Bones/joints: Unremarkable. XR/XR chest 1V portable [id number] IMPRESSION: 1. Endotracheal tube terminates approximately 2.4 cm above the raffi. 2. Probable small bilateral pleural effusions.
[2021-08-10 06:32] LABS: Glucose Point of Care 127 mg/dL (70-110)
[2021-08-10 06:32] LABS: Glucose Point of Care 125 mg/dL (70-110)
--- NOTE | 2021-08-10 08:35 | USR_ITS ---
PROCEDURE INFORMATION: Exam: US Retroperitoneal; Complete; Kidneys and Bladder Exam date and time: 08/10/2021 8:49 AM Age: 86 years old Clinical indication: Other: Blood work shows nichol; Prior surgery; Surgery date: Post-operative (0-2 days); Surgery type: Gb TECHNIQUE: Imaging protocol: Real-time ultrasound of the retroperitoneum with image documentation. Complete exam focused on the kidneys and bladder. COMPARISON: US gall bladder [id number] 08/07/2021 4:53 PM FINDINGS: Right kidney: The right kidney measures up to 10.2 cm in length. Normal size, contour and echotexture. No hydronephrosis. No masses. Left kidney: The left kidney measures up to 10.7 cm in length. Normal size, contour and echotexture. No hydronephrosis. No masses. Aorta: Visualized portions of the aorta appear within normal limits. Urinary bladder: Salcedo catheter in the bladder. US/US renal BI* [id number] IMPRESSION: Unremarkable sonographic appearance of the kidneys. No hydronephrosis.
[2021-08-10] MEDS: pantoprazole 40 mg SDV IVP ×2 (08:38→17:32)
--- NOTE | 2021-08-10 09:02 | PC.SOCIAL ---
IM follow up. Left copy in room but did not speak to patient currently. Pt is on vent. CM to follow up and discuss with pt and/ or family in two days if extubated. Not likely patient will dc in next 48 hours.
--- NOTE | 2021-08-10 09:16 | CTR_ITS ---
PROCEDURE INFORMATION: Exam: CT Head Without Contrast Exam date and time: 08/10/2021 9:31 AM Age: 86 years old Clinical indication: Altered mental status/memory loss; Additional info: Decreased loc TECHNIQUE: Imaging protocol: Computed tomography of the head without contrast. Radiation optimization: All CT scans at this facility use at least one of these dose optimization techniques: automated exposure control; mA and/or kV adjustment per patient size (includes targeted exams where dose is matched to clinical indication); or iterative reconstruction. COMPARISON: CT head wo con* [id number] 08/07/2021 3:57 PM RADIATION DOSE METRICS: Total DLP (mGy-cm): 923.36 FINDINGS: Brain: There is an acute or subacute infarct in the posterior limb of the right internal capsule, new from 08/07/2021. Remote lacunar infarct in the right thalamus. Extensive hypoattenuation in the periventricular and subcortical white matter, consistent with chronic small vessel ischemia. No acute hemorrhage. No mass effect. Cerebral ventricles: Global cerebral volume loss with ex vacuo dilatation of the ventricles. Paranasal sinuses: Visualized sinuses are unremarkable. No fluid levels. Mastoid air cells: Visualized mastoid air cells are well aerated. Orbital cavities: Bilateral lens extractions. Bones/joints: Unremarkable. No acute fracture. Soft tissues: Unremarkable. CT/CT head wo con* [id number] IMPRESSION: 1. Acute or subacute infarct in the posterior limb of the right internal capsule, new from 08/07/2021. 2. Extensive chronic microvascular ischemic changes. 3. No acute hemorrhage.
[2021-08-10 10:06] LABS: Glucose Point of Care 127 mg/dL (70-110)
--- NOTE | 2021-08-10 10:34 | P.PN_ITS ---
Subjective Subjective: No significant changes since yesterday. Did not open her eyes did not start moving yet. On and off on CPAP trials. Not doing well. No signs of pain. Fever is down. Medications: Reviewed: Yes Medication Review Details: Generic Name Dose Route Start Last Admin Trade Name Freq PRN Reason Stop Dose Admin Acetaminophen 650 mg 08/09/21 08:41 08/09/21 23:57 Acetaminophen 65 0 Mg Supp [place] 650 mg Q6H PRN Administration FEVER Heparin Sodium (Po rcine) 5,000 unit 08/09/21 14:30 08/10/21 02:23 Heparin 5,000 Un it/Ml Inj 1 Ml SUBCUT 5,000 unit Q12H [place] Administration Lactated Ringer's 1,000 mls @ 100 m ls/hr 08/09/21 08:45 08/10/21 10:06 Lactated Ringers IV Not Given .Q10H [place] Piperacillin Sod/T azobactam 100 mls @ 25 mls/ hr 08/09/21 16:30 08/10/21 08:45 Sod 3.375 gm/ So dium Chloride IV Infused Q12H [facility] Infusion Protocol Insulin Human Lisp ro 0 unit 08/08/21 11:30 08/10/21 06:38 Insulin Lispro 1 00 Unit/1 Ml SUBCUT Not Given Q6H [facility] Protocol Pantoprazole Sodiu m 40 mg 08/08/21 09:00 08/10/21 08:38 Pantoprazole 40 Mg Sdv IVP 40 mg BID [place] Administration Vitals/I&O/Wt Last Vital Signs Temp 99.4 F 08/10/21 08:51 Pulse 89 08/10/21 09:00 Resp 12 08/10/21 09:12 BP 123/65 08/10/21 09:30 Pulse Ox 99 08/10/21 09:30 08/09/21 08/10/21 08/10/21 22:59 06:59 14:59 Intake Total 988.75 / 2286.000 152 / 152 Output Total 125 / 125 100 / 100 Balance 863.75 / 2161.000 52 / 52 Physical Exam Narrative: On mechanical ventilation, unresponsive, does not move extremities. No acute distress. Skin is warm and dry. Moist mucous membranes Pinpoint reactive pupils bilaterally. Neck no JVD Abdomen is soft, nontender, bowel sounds are weak S1, S2, systolic murmur Clear to auscultation bilaterally. No wheezes. No respiratory distress. Skin is warm and dry. Peripheral edema. No cyanosis. No calf tenderness bilaterally. Urinary Catheter Management: Salcedo: Cath Placed During This Visit: yes Reason for Continuing Indwelling Catheter: Accurate Measurement of Urinary Output in Critically Ill Patients Urinary Catheter Date of Insertion: 08/07/21 Urinary Catheter Time of Insertion: 15:33 Data : 08/10/21 03:10 08/10/21 03:10 Other Labs: Radiology Impressions Abdomen/Pelvis CT 08/07/21 13:49 IMPRESSION: 1. Fluid distended gallbladder with wall thickening and enhancement with surrounding induration suspicious for acute cholecystitis. Dilatation common bile duct measuring 8 to 9 mm. Recommend further evaluation with ultrasound and MRCP. 2. Mild intrahepatic biliary ductal dilatation. 3. Thickening and enhancement involving the RIGHT hepatic flexure adjacent to the gallbladder extending into the proximal transverse colon likely reactive. Infectious, inflammatory, or ischemic colitis is an additional consideration. No pneumatosis. 4. No free fluid in the pelvis. 5. Salcedo catheter in place. 6. Rectosigmoid constipation. 7. Densely calcified abdominal aorta. Notified Guillermina Solano MD at 08/07/2021 4:42 PM. Gallbladder Ultrasound 08/07/21 16:44 IMPRESSION: 1. Thickened gallbladder wall, consistent with acute cholecystitis. There is no visible calculus within the gallbladder on ultrasound. In retrospect, on the CT scan 08/07/2021, there is a 9 mm calcified stone in the gallbladder neck. Abdomen/Pelvis CTA 08/07/21 16:50 IMPRESSION: 1. No active GI hemorrhage identified. 2. Acute cholecystitis with 9 mm gallstone in the neck. 3. Inflammation of the ascending, hepatic flexure, and proximal transverse colon. This is most likely reactive inflammation due to the gallbladder disease. Infectious or inflammatory colitis is not excluded. 4. Thickened urinary bladder wall may relate to nondistention. Cystitis is not excluded. Chest X-Ray 08/10/21 06:00 IMPRESSION: 1. Endotracheal tube terminates approximately 2.4 cm above the raffi. 2. Probable small bilateral pleural effusions. Renal Ultrasound 08/10/21 08:35 IMPRESSION: Unremarkable sonographic appearance of the kidneys. No hydronephrosis. Head CT 08/10/21 09:16 IMPRESSION: 1. Acute or subacute infarct in the posterior limb of the right internal capsule, new from 08/07/2021. 2. Extensive chronic microvascular ischemic changes. 3. No acute hemorrhage. ADDENDUM: 08/10/21 1002 THIS REPORT CONTAINS FINDINGS THAT MAY BE CRITICAL TO PATIENT CARE. The findings were verbally communicated via telephone conference with LACI WOOTEN at 10:00 AM PETERT on 08/10/2021. The findings were acknowledged and understood. Laboratory Results WBC 15.6 10^3/uL (4.0-10.0) H 08/10/21 03:10 RBC 2.61 10^6/uL (4.1-5.3) L 08/10/21 03:10 Hgb 8.3 g/dL (11.5-15.3) L 08/10/21 03:10 Hct 26.2 % (37.0-47.0) L 08/10/21 03:10 MCV 100.4 fl (81-99) H 08/10/21 03:10 MCH 31.8 pg (28.0-34.0) 08/10/21 03:10 MCHC 31.7 g/dL (30.0-36.0) 08/10/21 03:10 RDW 14.0 % (12.1-15.1) 08/10/21 03:10 Plt Count 174 10^3/cmm (130-400) 08/10/21 03:10 MPV 11.0 fL (7.4-10.4) H 08/10/21 03:10 Neut % (Auto) 91.8 % 08/10/21 03:10 Lymph % (Auto) 5.2 % 08/10/21 03:10 Bowman % (Auto) 2.0 % 08/10/21 03:10 Eos % (Auto) 0.0 % 08/10/21 03:10 Baso % (Auto) 0.3 % 08/10/21 03:10 Neut # (Auto) 14.32 10^3/uL (1.8-7.7) H 08/10/21 03:10 Lymph # (Auto) 0.8 10^3/uL (0.8-4.8) 08/10/21 03:10 Bowman # (Auto) 0.3 10^3/uL (0.2-0.9) 08/10/21 03:10 Eos # (Auto) 0.0 10^3/uL (0.0-0.8) 08/10/21 03:10 Baso # (Auto) 0.0 10^3/uL (0.0-0.1) 08/10/21 03:10 Nucleated RBC % (auto) 0 % 08/10/21 03:10 Nucleated RBCs # 0.0 /100WBC 08/10/21 03:10 Specimen Type Arterial 08/10/21 03:20 Sample Site Radial, right 08/10/21 03:20 ABG pH 7.39 (7.35-7.45) 08/10/21 03:20 ABG pCO2 33.5 mmHg (35-45) L 08/10/21 03:20 ABG pO2 83.8 mmHg (80.0-100.0) 08/10/21 03:20 ABG HCO3 20.4 mmol/L (22-26) L 08/10/21 03:20 ABG O2 Saturation 96.1 08/09/21 04:51 ABG Base Excess -4.0 mmol/L (-2.0-2.0) L 08/10/21 03:20 Arvind Test Pos 08/10/21 03:20 A-a O2 Gradient 9.3 mmHg (5-10) 08/09/21 04:51 Hematocrit 26.2 % (37-47) L 08/10/21 03:20 Hgb O2 Saturation 94.8 % (95-100) L 08/09/21 04:51 Carboxyhemoglobin 0.2 %THgb (0.4-20.1) L 08/09/21 04:51 Methemoglobin 1.1 % (0.4-1.5) 08/09/21 04:51 Total Hemoglobin 12.1 g/dL (12-16) 08/09/21 04:51 Sodium 140.0 mmol/L (131-143) 08/09/21 04:51 Potassium 3.5 mmol/L (3.5-5.0) 08/09/21 04:51 Glucose 99.0 mg/dL (70-115) 08/09/21 04:51 Ionized Calcium 1.0 mmol/L (1.1-1.4) L 08/09/21 04:51 O2 Delivery Device Vent 08/10/21 03:20 FiO2 26.0 % 08/10/21 03:20 Tidal Volume 0.38 08/10/21 03:20 PEEP 5.0 cmH20 08/10/21 03:20 Chemist Physical ID jose 08/10/21 03:20 Sodium 142 mmol/L (136-145) 08/10/21 03:10 Potassium 3.7 mmol/L (3.5-5.1) 08/10/21 03:10 Chloride 107 mmol/L (98-107) 08/10/21 03:10 Carbon Dioxide 20 mmol/L (22-29) L 08/10/21 03:10 Anion Gap 18.7 (5-19) 08/10/21 03:10 BUN 48 mg/dL (8-23) H 08/10/21 03:10 Creatinine 3.3 mg/dL (0.5-0.9) H 08/10/21 03:10 GFR Calculation Not Reportable 08/10/21 03:10 Glucose 107 mg/dL (65-115) 08/10/21 03:10 POC Glucose 127 mg/dL (70-110) H 08/10/21 09:54 Estimat Average Glucose 163 08/07/21 14:15 Hemoglobin A1c 7.3 % (4.0-6.0) H 08/07/21 14:15 Calculated Osmolality 307 mOsm/kg (285-295) H 08/10/21 03:10 Lactate 2.0 mmol/L (0.5-2.2) 08/08/21 04:54 Calcium 6.7 mg/dL (8.5-10.5) L 08/10/21 03:10 Magnesium 1.5 mg/dL (1.7-2.3) L 08/10/21 03:10 Magnesium Cancelled 08/10/21 03:10 Total Bilirubin 0.4 mg/dL (0.15-1.2) 08/10/21 03:10 AST 90 U/L (0-32) H 08/10/21 03:10 ALT 36 U/L (0-33) H 08/10/21 03:10 Alkaline Phosphatase 53 IU/L (35-105) 08/10/21 03:10 Troponin T Baseline 22 ng/L (0-10) H 08/07/21 14:15 Troponin T 120 Minute 19.85 ng/L (0-10) H 08/07/21 16:42 Delta Troponin T -2.15 ABS# (0-10) L 08/07/21 16:42 Troponin T Hi Sens 6Hr 22.32 ng/L (0-10) H 08/07/21 20:07 Troponin T Hi Sens 6Hr Delta 0.32 ng/L (0-12) 08/07/21 20:07 C-Reactive Protein 232.0 mg/L (0.0-4.9) H 08/08/21 04:54 Total Protein 4.9 g/dL (6.6-8.7) L 08/10/21 03:10 Albumin 2.1 g/dL (3.5-5.2) L 08/10/21 03:10 Globulin 2.8 g/dL (1.3-4.6) 08/10/21 03:10 Triglycerides 97 mg/dL (0-150) 08/07/21 14:15 Cholesterol 161 mg/dL (0-200) 08/07/21 14:15 LDL Cholesterol, Calc 89 mg/dL (50-129) 08/07/21 14:15 HDL Cholesterol 53 mg/dL (60-100) L 08/07/21 14:15 LDL/HDL Ratio 1.68 RATIO (0.00-3.22) 08/07/21 14:15 Cholesterol/HDL Ratio 3.04 mg/dL (0.0-4.40) 08/07/21 14:15 Lipase 39 U/L (13-60) 08/07/21 14:15 Procalcitonin 1.79 ng/mL (0-0.5) H 08/07/21 14:15 Urine Color Yellow (Yellow) 08/07/21 15:02 Urine Appearance Clear (CLEAR) 08/07/21 15:02 Urine pH 5 (5-7) 08/07/21 15:02 Ur Specific Aurora 1.015 (1.005-1.030) 08/07/21 15:02 Urine Protein 3+ (Negative) H 08/07/21 15:02 Urine Glucose (UA) 4+ (Normal) H 08/07/21 15:02 Urine Ketones 2+ (Negative) H 08/07/21 15:02 Urine Blood 2+ (Negative) H 08/07/21 15:02 Urine Nitrate Negative (Negative) 08/07/21 15:02 Urine Bilirubin Neg (Negative) 08/07/21 15:02 Urine Urobilinogen Neg mg/dL (Negative) 08/07/21 15:02 Ur Leukocyte Esterase Negative (Negative) 08/07/21 15:02 Urine RBC 0-4 /hpf (0-2) H 08/07/21 15:02 Urine WBC Rare /hpf (0-5) 08/07/21 15:02 Ur Squamous Epith Cells None /hpf (0-5) 08/07/21 15:02 Amorphous Sediment Not Reportable 08/07/21 15:02 Urine Bacteria None /hpf (NONE) 08/07/21 15:02 Nasal Influ A H1 2009 PCR Not detected (NOT DETECT) 08/07/21 15:25 Coronavirus 229E (PCR) Not detected (NOT DETECT) 08/07/21 15:25 Influenza A (H1) PCR Not detected (NOT DETECT) 08/07/21 15:25 Influenza A (H3) PCR Not detected (NOT DETECT) 08/07/21 15:25 Influenza Type A (PCR) Not detected (NOT DETECT) 08/07/21 15:25 Influenza Type B (PCR) Not detected (NOT DETECT) 08/07/21 15:25 SARS-CoV-2 (PCR) Not detected (NOT DETECT) 08/07/21 15:25 Micro: Microbiology 08/08/21 02:50 Urine Culture - Final Urine Catheterized A&P Assessment and plan (1) Acute cholecystitis: Status: Acute (2) Altered mental status: Status: Acute (3) Fever: Status: Acute (4) Sepsis: Status: Acute (5) Acute UTI: Status: Acute Plan Sepsis related to acute cholecystitis Gallstone related cholecystitis Gallstone in neck of the bladder Bilirubin normal AST ALT normal Does not have typical cholangitis signs No signs of colitis N.p.o. IV fluid hydration Start Zosyn Hold metformin and losartan RCRI:3 points, class IV 50% risk of 30-day mortality, considering urgency of surgical intervention would recommend cardiac echo, serial troponin and EKG Sinus tachycardia is appropriate to her fever Continue IV fluids Requested urine and blood culture Abnormal UA, requested urine culture. Hypertensive urgency patient takes metoprolol at home, she wanted to take anything p.o., I will give her IV labetalol push for as needed usage Bilateral lower extremity edema, pansystolic murmur I will request echo I do not have any previous records to know about her medical history in detail Requested records from [facility] Type 2 diabetes hold metformin Accu-Cheks every 4 hours, patient is n.p.o. She is high risk for cholangitis, complications related to sepsis, septic shock, peritonitis, , all the risk factors and potential complications were conveyed in simple terms to her friend Chad See has expressive aphasia he is able to comprehend appropriately Friend is expecting a call from the surgeon in the morning She is full code for now, please rediscuss goals of care in the morning once is here DVT prophylaxis: SCDs [place] Severe sepsis secondary to acute gallstone cholecystitis. Stable now. Continuing IV fluids, Zosyn, pain medications. Status post lap cholecystectomy. Appreciate Dr. Restrepo's input. Acute respiratory failure secondary to #1 and newly diagnosed stroke. As of now the patient is still not ready for extubation. Discussed with the respiratory therapist. I am hoping that she will wake up soon to be able to extubate. We will minimize pain medications and try to avoid sedation. 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 Discussed with the radiologist. Starting stroke protocol including statin and rectal aspirin. Additional work- up including echo and Doppler ultrasound of the carotid arteries. Fasting lipids. Acute metabolic encephalopathy secondary to # above. Baseline dementia. It is hard to assess her neurologic status at this point. Hypertension. Improved. We will continue management per stroke protocol for now. Diabetes. insulin sliding scale. Anemia. Stable. Monitor. Hypokalemia. Will replace and monitor. Acute kidney injury probably secondary to sepsis and dehydration. Ultrasound did not reveal hydro-. Additional testing is still pending. We will slightly increase IV fluid rate and monitor renal function. We will try to avoid nephrotoxic medications. Systolic murmur. Due to moderate aortic stenosis I suspect. Echo CONCLUSIONS ?Mild left ventricular hypertrophy.? ?LV ejection fraction around 55%.? ?No gross wall motion normalities. ?Grade I/IV diastolic dysfunction (abnormal relaxation filling ?pattern), normal to mildly elevated filling pressures. ?Moderate aortic valve stenosis, mean gradient 20 mmHg, DEAN 1.1 ?cm squared.? (Peak velocity of 2.95 m/s with a peak gradient of 35 ?mmHg). ?Mild mitral annular calcification. ?Mildly increased left atrial size. ?[id number] tricuspid valve regurgitation. ?Estimated pulmonary artery peak systolic pressure was 17 mmHg ?There is no pericardial effusion. ?There are no intracardiac masses. ?No similar previous studies are available for comparison DVT prophylaxis. SCDs. Heparin. Discussed with Dr. Lauro GRESHAM. Had a very long discussion with the patient's family when they arrived during my second visit with the patient. We discussed patient's current condition and new findings including stroke. I expressed my concern that her mental status most likely will decline from her baseline due to the stroke. However I am still hopeful that we will be able to stabilize her and extubate. We will assess her neurologic status when she wakes up hopefully. The family realizes that the chances of her declining or not being able to wake up are high. wants her to be DNR. He understands what it entails. I also told him and his brother and [id number] that they can change their mind regarding DNR at any point. They verbalized understanding and satisfaction with the conversation. Patient's nurse and nurse aide are in the room during the discussions. Discussed with multidisciplinary team. Critical care time spent on this encounter is 45minutes. Attestations Medical Necessity Statement*: Patient is in critical condition in ICU requiring mechanical ventilation. Critical care time spent 45 minutes Coding Level of Care Code Acute [employer] for Lucian Fwd Diagnoses Acute cholecystitis K81.0 Altered mental status R41.82 Fever R50.9 Sepsis A41.9 Acute UTI N39.0
--- NOTE | 2021-08-10 10:52 | PM.PN ---
Subjective Subjective: she is on minimal vent settings, not waking up even after sedation had been discontinued yesterday. CT showed CVA. She continues to be febrile. She had bowel movements yesterday Medications: Reviewed: Yes Vitals/I&O/Wt Last Vital Signs Temp 98.8 F 08/10/21 10:42 Pulse 89 08/10/21 10:30 Resp 12 08/10/21 09:12 BP 123/65 08/10/21 10:42 Pulse Ox 100 08/10/21 10:30 08/09/21 08/10/21 08/10/21 22:59 06:59 14:59 Intake Total 988.75 / 2286.000 152 / 152 Output Total 125 / 125 100 / 100 Balance 863.75 / 2161.000 52 / 52 Physical Exam Narrative: Abdomen: Soft, nondistended, incision clean dry and intact Urinary Catheter Management: Salcedo: Cath Placed During This Visit: yes Reason for Continuing Indwelling Catheter: Accurate Measurement of Urinary Output in Critically Ill Patients Urinary Catheter Date of Insertion: 08/07/21 Urinary Catheter Time of Insertion: 15:33 Data : 08/10/21 03:10 08/10/21 03:10 Micro: Microbiology 08/08/21 02:50 Urine Culture - Final Urine Catheterized A&P Assessment and plan (1) Status post laparoscopic cholecystectomy: 85-year-old female status post laparoscopic cholecystectomy for acute gangrenous cholecystitis. Patient is febrile to [address] showed CVA Continue IV Zosyn Medical management as per hospitalist service If patient is awake after extubation, can start clear liquid diet, otherwise could start trophic feeds through OG tube Status: Acute Attestations Medical Necessity Statement*: Medical management as per hospitalist service Coding Level of Care Code Acute [employer] Athlete for Chg Fwd Diagnoses Status post laparoscopic cholecystectomy Z90.49
[2021-08-10] MEDS: lactated ringers 1,000 ML 100 ML IV ×2 (11:15→20:46)
--- NOTE | 2021-08-10 11:44 | PC.OT ---
OT orders received to evaluate and treat patient. Patient currently intubated. Evaluation to be completed at another time after extubation and when patient is medically stable, responsive, and able to follow commands.
[2021-08-10 12:21] LABS: Glucose Point of Care 134 mg/dL (70-110)
[2021-08-10 13:45] LABS: Glucose Point of Care 143 mg/dL (70-110)
[2021-08-10 14:29] LABS: Glucose Point of Care 135 mg/dL (70-110)
[2021-08-10 15:21] LABS: Add Urine Microscopic? YES; Bacteria Urine 1+ /hpf; Bilirubin Urine Neg (Negative); Blood Urine 3+ (Negative); Glucose Urine UA Norm (Normal); Ketones Urine 1+ (Negative); Leukocyte Esterase Urine 1+ (Negative); Mucus Urine 1+ /hpf; Nitrate Urine Negative (Negative); Protein Urine 1+ (Negative); RBC Urine 0-4 /hpf (0-2); Specific Gravity, Urine 1.015 (1.005-1.030); Squamous Epithelial Cell Urine 0-4 /hpf (0-5); Urine Appearance Hazy (CLEAR); Urine Color Yellow (Yellow); Urobilinogen Urine Norm (Negative); WBC Urine 0-4 /hpf (0-5); pH Urine 5 (5-7)
[2021-08-10 15:22] LABS: Amorphous Sediment Urine 1+ /hpf; Fine Granular Casts Urine 0-4 /lpf
--- NOTE | 2021-08-10 15:35 | PC.PT ---
Patient completely unresponsive despite extensive sternal rubbing, bilateral lower extremity range of motion to end ranges etc., currently requiring intubation due to unable to protect airway, but is not on sedation. Unable to perform meaningful evaluation at this time, bilateral lower extremities within functional limits, shoulder flexion abduction not assessed but otherwise upper extremities within functional limits as well. Evaluation deferred due to all above. Will reassess as appropriate.
--- NOTE | 2021-08-10 15:40 | NUR.SHIFT ---
Shift Note Frequent safety and comfort rounds continue. Orders and/or nursing care completed as indicated with assist of student Patient monitored for response to intervention taken to ct scan this am Education provided to family about sepsis and stroke education . . Patient and family talked with doctor at length Will continue to monitor. has agreed with allow natural status
[2021-08-10 15:43] LABS: Charge for UA Resulting for Rev; Eosinophil Urine No Eosinophils Seen; Urine Eosinophil Count 0 (0-0)
[2021-08-10 17:03] LABS: Glucose Point of Care 148 mg/dL (70-110)
[2021-08-10] MEDS: insulin lispro 100 unit/1 mL SUBCUT ×2 (17:33→23:08)
[2021-08-10 17:54] LABS: Glucose Point of Care 163 mg/dL (70-110)
--- NOTE | 2021-08-10 21:40 | USCV_ITS ---
Jeancarlos Hernandez Age: 86 Gender: F : 1935 Exam Date: 08/10/2021 22:19 Ordering Phys: Jose Alejandro Cook MD Technologist: Hamlet Huizar [place] [facility] [place]: CVA BP: 116 / 63 HR: 93 Rhythm: Sinus Technical Quality: Adequate MEASUREMENTS (Male / Female) Normal Values 2D ECHO LV Diastolic Diameter PLAX 3.8 cm 4.2 - 5.9 / 3.9 - 5.3 cm LV Systolic Diameter PLAX 2.9 cm IVS Diastolic Thickness 1.6 cm 0.6 - 1.0 / 0.6 - 0.9 cm IVS Systolic Thickness 1.7 cm LVPW Diastolic Thickness 1.2 cm 0.6 - 1.0 / 0.6 - 0.9 cm LVPW Systolic Thickness 1.6 cm LVOT Diameter 2.0 cm LV Ejection Fraction 2D Teich 37.6 % LV Ejection Fraction MOD 2C 38.8 % LV Ejection Fraction 2C AL 40.2 % LA Diameter 3.2 cm LA Width 4.3 cm LA Height 4.5 cm RA Width 3.9 cm RA Height 3.6 cm Aorta at Sinotubular Diameter 2.2 cm M-MODE Aortic Annulus Diameter 1.8 cm LA Ao Ratio MM 1.8 MV E Point Septal Separation 1.3 cm DOPPLER AV Peak Velocity 303.3 cm/s LVOT Peak Velocity 70.0 cm/s AV Area Cont Eq vti 1.3 cm squared AV Area Cont Eq pk 0.7 cm squared MV Area PHT 4.1 cm squared Mitral E to A Ratio 0.7 MV E' Velocity 71.5 cm/s Mitral E to MV E' Ratio 15.7 Mitral E to LV E' Lateral Ratio 17.5 Mitral E to LV E' Septal Ratio 14.2 Right Atrial Pressure 13.0 mmHg PV Peak Velocity 241.0 cm/s FINDINGS Left Ventricle Normal left ventricular size. LV systolic function is normal with EF of 50-55%. No significant regional wall motion abnormalities. Grade 1 diastolic dysfunction Right Ventricle The right ventricle is normal in size and function. Right Atrium The right atrium is normal in size. Left Atrium The left atrium is dilated Mitral Valve Mitral valve is thickened without significant stenosis or prolapse. There is mild mitral regurgitation. Aortic Valve Aortic valve is thickened and calcified. Mild to moderate aortic stenosis is noted with mean gradient of 19mmHg. There is moderate aortic regurgitation. Tricuspid Valve Structurally normal tricuspid valve without significant stenosis or regurgitation. Insufficient TR jet to calculate RVSP Pulmonic Valve Structurally normal pulmonic valve without significant stenosis. There is no pulmonic regurgitation. Pericardium Normal pericardium without effusion. Aorta Normal ascending aorta dimension. CONCLUSIONS LV systolic function is normal with EF of 50-55% Grade 1 diastolic dysfunction Left atrium is dilated Mitral valve is thickened and calcified. Mild mitral regurgitation Aortic valve is thickened and calcified. Mild to moderate aortic stenosis noted with mean gradient of 19mmHg. Compared to prior echocardiogram from 08/08/2021, no significant changes are noted Noe Roper MD (Electronically Signed) Final Date: 11 August 2021 11:51 S
--- NOTE | 2021-08-10 21:40 | USCV_ITS ---
Jeancarlos Hernandez Age: 86 Gender: F : 1935 Exam Date: 08/10/2021 21:49 Ordering Phys: Jose Alejandro Cook MD Technologist: Hamlet Huizar Exam Location: [facility] – [place] Indication: CVA Risk Factors: Previous Vascular Surgery: Right Brachial BP: / Left Brachial BP: / Right Left Velocity (cm/s) Spectral Plaque Velocity (cm/s) Spectral Plaque Syst/Diast Broadening Syst/Diast Broadening 63.90/ 13.20 Prox CCA 58.50 / 9.90 40.80/ 14.30 Mid CCA 46.00 / 10.50 48.50/ 12.10 Distal CCA 43.40 / 9.20 48.10/ 16.00 Prox ICA 71.60 / 20.40 54.50/ 20.80 Mid ICA 89.70 / 25.60 48.60/ 16.60 Distal ICA 127.50/ 38.10 29.40 ECA 52.95 0.85 ICA/CCA 2.18 Antegrade Vertebral Antegrade 25.60/ 4.80 cm/s 30.80/ 6.80 cm/s Tri Subclavian Tri 57.00 120.9 0 FINDINGS Mild to moderate heterogeneous plaques at the right bifurcation and proximal internal carotid artery Minimal plaques at the left bifurcation and proximal internal carotid artery. Tortuous distal ICA on the left side Normal Doppler flow velocities in the external carotid, subclavian and vertebral arteries bilaterally CONCLUSIONS Mild to moderate heterogeneous plaques at the right bifurcation and proximal internal carotid artery suggesting less than 50% stenosis. Minimal plaques at the left bifurcation and proximal internal carotid artery, suggesting less than 50% stenosis Elevated velocity in the distal internal carotid artery on the left side, could be related to tortuosity. No similar previous studies are available for comparison. Dr Josue Jasso MD [facility] (Electronically Signed) Final Date: 17 Aug 2021 19:39 S
[2021-08-10 23:21] LABS: Glucose Point of Care 167 mg/dL (70-110)
[2021-08-10 23:21] LABS: Glucose Point of Care 162 mg/dL (70-110)
[2021-08-11] VITALS (53 sets, daily range): BP systolic 107–156; BP diastolic 55–85; PULSE 85–108; RESP 14–22; TEMP 36.8–37.8; O2SAT 91–100; BMI 20.1
[2021-08-11] MEDS: heparin 5,000 unit/mL INJ 1 mL 5000 UNIT SUBCUT ×2 (02:20→14:45)
[2021-08-11] MEDS: piperacillin-tazobactam 3.375 GM in sodium chloride 0.9% (plus) 100 ML IV (03:49)
[2021-08-11 03:52] LABS: ABG PCO2 32.5 mmHg (35-45); ABG PH Result 7.34 (7.35-7.45); Arterial Blood Gas Hematocrit 26.8 % (37-47); Base Excess ABG -7.5 mmol/L (-2.0-2.0); Blood Gas Allen Test Pos; Blood Gas Sample Site Radial, right; Blood Gas Sample Type Arterial; Blood Gas Tidal Volume 0.35; HCO3 ABG 17.5 mmol/L (22-26); Oxygen Device VENT; PO2 ABG 97.3 mmHg (80.0-100.0)
[2021-08-11 04:43] LABS: Glucose Point of Care 114 mg/dL (70-110)
[2021-08-11 05:02] LABS: Basophils # 0.1 10^3/uL (0.0-0.1); Basophils % 0.4 %; Eosinophils % 0.1 %; Hematocrit 27.4 % (37.0-47.0); Hemoglobin 8.5 g/dL (11.5-15.3); Lymphocytes # 0.6 10^3/uL (0.8-4.8); Lymphocytes % 2.9 %; Mean Corpuscular Hemoglobin 30.9 pg (28.0-34.0); Mean Corpuscular Volume 99.6 fl (81-99); Mean Platelet Volume 11.3 fL (7.4-10.4); Monocytes # 0.4 10^3/uL (0.2-0.9); Neutrophils # 17.99 10^3/uL (1.8-7.7); Neutrophils % 92.7 %; Nucleated Red Blood Cells % 0.2 %; Platelet Count 167 10^3/cmm (130-400); Red Blood Count 2.75 10^6/uL (4.1-5.3); White Blood Count 19.4 10^3/uL (4.0-10.0)
[2021-08-11 05:17] LABS: Alanine Aminotransferase 34 U/L (0-33); Albumin Level 1.9 g/dL (3.5-5.2); Alkaline Phosphatase 62 IU/L (35-105); Aspartate Amino Transferase 70 U/L (0-32); Blood Urea Nitrogen 65 mg/dL (8-23); Calcium 6.9 mg/dL (8.5-10.5); Carbon Dioxide 17 mmol/L (22-29); Chloride 105 mmol/L (98-107); Chol HDL Ratio 5.11 mg/dL (0.0-4.40); Cholesterol 97 mg/dL (0-200); Globulin 3.2 g/dL (1.3-4.6); Glucose 106 mg/dL (65-115); HDL Cholesterol 19 mg/dL (60-100); LDL Cholesterol Calculated 44 mg/dL (50-129); LDL HDL Ratio 2.32 RATIO (0.00-3.22); Magnesium 1.9 mg/dL (1.7-2.3); Osmolality Calculated 311 mOsm/kg (285-295); Phosphorus 6.5 mg/dL (2.5-4.5); Sodium 141 mmol/L (136-145); Total Bilirubin 0.3 mg/dL (0.15-1.2); Total Protein 5.1 g/dL (6.6-8.7); Triglycerides 170 mg/dL (0-150)
[2021-08-11 05:46] LABS: Estmated Average Glucose 151; Hemoglobin A1C 6.9 % (4.0-6.0)
[2021-08-11 05:52] LABS: Slide Review Slide Review Perform
--- NOTE | 2021-08-11 06:22 | PC.NURSE ---
Shift Summary Patient had an uneventful shift. She remains unresponsive to painful/verbal stimuli overnight and pupils are fixed. Remains intubated vent settings as follows; mode-CMV, FiO2-26%, VT350, PEEP-5, rate-12. No wounds or skin issues noted at this time.
--- NOTE | 2021-08-11 07:00 | XR_ITS ---
WS: [id number] Portable AP supine chest, 08/11/2021 Clinical Data: intubated. Comparison: Portable chest, 08/10/2021 Findings: No nodules, masses or effusions are seen. The heart is normal. The pulmonary vascularity is not increased. No pneumonia or pneumothorax is seen. The endotracheal tube remains above the raffi. Minimal bibasilar patchy atelectasis is present. There may be small bilateral effusions. Monitor viji ds are on the chest wall. XR/XR chest 1V portable [id number] Impression: 1. Endotracheal tube remains in good position. 2. No change in bilateral lower lobe patchy atelectasis and/or effusions.
--- NOTE | 2021-08-11 08:39 | PM.PN ---
Subjective Subjective: Patient continues to be unresponsive, CT had shown CVA. She had bowel movements yesterday Medications: Reviewed: Yes Vitals/I&O/Wt Last Vital Signs Temp 98.3 F 08/11/21 08:00 Pulse 96 08/11/21 08:00 Resp 15 08/11/21 08:16 BP 156/72 08/11/21 08:00 Pulse Ox 99 08/11/21 08:16 08/10/21 08/11/21 08/11/21 22:59 06:59 14:59 Intake Total 1051.667 / 2203.667 0 / 2203.667 Output Total 50 / 265 115 / 265 Balance 1001.667 / 1938.667 -115 / 1938.667 Weight last 48 hrs Weight 125 lb Physical Exam Narrative: Abdomen: Soft, nondistended, incision clean dry and intact Intubated on mechanical ventilation Salcedo to gravity Urinary Catheter Management: Salcedo: Cath Placed During This Visit: yes Reason for Continuing Indwelling Catheter: Accurate Measurement of Urinary Output in Critically Ill Patients Urinary Catheter Date of Insertion: 08/07/21 Urinary Catheter Time of Insertion: 15:33 Data : 08/11/21 03:34 08/11/21 03:34 Micro: Microbiology 08/08/21 02:50 Urine Culture - Final Urine Catheterized A&P Assessment and plan (1) Status post laparoscopic cholecystectomy: 85-year-old female status post laparoscopic cholecystectomy for acute gangrenous cholecystitis. Patient has been finally afebrile though white count is gone from 15 K to 19 K Continue IV Zosyn Medical management as per hospitalist service Place OG tube, start tube feeds as per nutrition's recommendations since patient is unlikely to be get extubated today Status: Acute Attestations Medical Necessity Statement*: As per primary Coding Level of Care Code Acute Interactive Designer for Chg Fwd Diagnoses Status post laparoscopic cholecystectomy Z90.49
[2021-08-11] MEDS: pantoprazole 40 mg SDV IVP ×2 (08:50→17:24)
--- NOTE | 2021-08-11 09:01 | PC.NUTR ---
Since Pt unresponsive and intubated, has been NPO x 4, and unable to start Clear Liquid diet, recommend consideration of Glucerna 1.2 starting @ 15 mls/hr and increasing 10 mls/hr as tolerated until goal rate of 35 mls/hr is reached, with flushes 100 mls Q6H. Another option for consideration is PPN, starting in a peripheral vein @ 12 mls/hr and increasing 10 mls/hr Q8H as tolerated until 42 mls/hr is reached, along with standard electrolytes, multivitamins 10 mls/day and Fat Emulsion of 25 grams/[address] assessment.
--- NOTE | 2021-08-11 09:24 | PC.CHAP ---
Pastoral Care Encounter/Spiritual Assessment Type of Contact [] Declined trial manager visit [] Patient/Family/Request visit [] Outpatient visit [] Follow-up visit [] Physician referral [] Code/Alert [x] Routine visit [] Staff referral [] Actively dying [x] Patient sleeping [] Family support [] [] Out of room [] Palliative care [] [] Receiving care in room [] Pre-surgical visit [] Trauma [] Long length of stay [x] ICU visit [x] Other: vent Relational/Emotional Strength [] Patient feels connected with others/family/visitors/staff [] Distress [] Loneliness/isolation [] Abandonment Spirituality of Patient [] Person of Kelsea [] Attends Confucianism of their Kelsea [] Believes in Prayer [] Reads Bible or Scientologist materials [] There are Spiritual issues to be addressed Flue Dust Laborer Interventions [x] Prayer [] Active listening [] Non-anxious presence [] Spiritual/emotional support [] Crisis/trauma care [] Spiritual counseling [] Bereavement support [] Provided bereavement packet [] Provided Bible/devotional materials [] Provided toy/stuffed animal, coloring book to patient or family member [] Provided Communion [] Anointing/[place] [] Salvation [x] Completed spiritual assessment [] Other: Impact on Illness or Injury [] Angry [] Fearful [] Anxious [] Often cries [] Exhaustion [] Unable to work [] Unable to attend hinduism [] Unable to walk/stand [] Unable to read [] Unable to drive [] Unable to eat/drink [] Unable to sleep [] Unable to be with family [] Patient intubated [] Other: Summary Time spent with patient
[2021-08-11] MEDS: lactated ringers 1,000 ML 100 ML IV ×2 (09:55→20:07)
--- NOTE | 2021-08-11 10:37 | PM.CONSULT ---
Providers/Reason For Consult Consulting Physician/Specialty*: Nephrology Reason for Consult*: Renal failure Attending Physician: Britt Amaral MD History of Present Illness History of Present Illness Thank for consultation, today had the pleasure reviewing this 86-year-old female for evaluation of acute kidney injury. She was admitted on 08/07 with nausea, vomiting and abdominal pain. Admission CT scan demonstrated acute cholecystitis. She was subsequently taken to the OR the following day where it was found during laparoscopic cholecystectomy she had a gangrenous gallbladder. She remains intubated and mechanically ventilated in the ICU. On review of hemodynamics, on admission she did have an elevated blood pressure peaking at over 200 systolic, this dropped precipitously in the evening on 08/08 down to a systolic of 85. She is now maintaining her blood pressure without the requirement for vasopressor agents. Culture data remains negative, she remains on combination antibiotics including Primaxin and received Zosyn. From my perspective, admission serum creatinine was normal, increasing precipitously from 0.6 mg/dL to 1.9 on 08/09 and up to 3.6 mg/dL today. Urine output only 200 mL over the last 24 hours. Urinalysis demonstrates coarse granular casts. Of note the kidneys have no evidence of obstruction on the initial admission CT scan. It was notable for atherosclerosis of abdominal vessels. No other exposures to potentially nephrotoxic substances as far as I can see. Review of Systems General: Reports: ROS unobtainable due to endotracheal tube and ROS unobtainable due to medical condition Medications/Allergies Home Medications Medication Instructions Recorded Confirmed Last Taken Type atorvastatin 40 mg tablet 40 mg PO DAILY 08/07/21 08/07/21 Unknown History clopidogrel 75 mg tablet (Plavix) 75 mg PO DAILY 08/07/21 08/07/21 Unknown History insulin degludec 200 unit/mL (3 8 unit SUBCUT BEDTIME 08/07/21 08/07/21 Unknown History mL) subcutaneous pen (Tresiba FlexTouch U-200 insulin) isosorbide mononitrate 30 mg 30 mg PO DAILY 08/07/21 08/07/21 Unknown History tablet,extended release 24 hr losartan 50 mg tablet 50 mg PO DAILY 08/07/21 08/07/21 Unknown History melatonin 3 mg tablet 3 mg PO BEDTIME 08/07/21 08/07/21 Unknown History metformin 850 mg tablet 850 mg PO BID 08/07/21 08/07/21 Unknown History metoprolol tartrate 25 mg tablet 50 mg PO BID 08/07/21 08/07/21 Unknown History omeprazole 40 mg capsule,delayed 40 mg PO DAILY 08/07/21 08/07/21 Unknown History release polyethylene glycol 3350 17 17 g PO DAILY PRN 08/07/21 08/07/21 Unknown History gram/dose oral powder (Miralax) Allergies Allergy/AdvReac Type Severity Reaction Status Date / Time No Known Allergies Allergy Verified 08/07/21 13:54 Current Medications Generic Name Dose Route Start Last Admin Trade Name Freq PRN Reason Stop Dose Admin Acetaminophen 650 mg 08/09/21 08:41 08/09/21 23:57 Acetaminophen 650 Mg Supp SC 650 mg Q6H PRN Administration FEVER Aspirin 300 mg 08/11/21 09:00 08/11/21 09:54 Aspirin 300 Mg Supp SC Not Given DAILY [facility] Atorvastatin Calcium 20 mg 08/10/21 21:00 08/10/21 20:45 Atorvastatin 40 Mg Tablet PO Not Given BEDTIME [facility] Heparin Sodium (Porcine) 5,000 unit 08/09/21 14:30 08/11/21 02:20 Heparin 5,000 Unit/Ml Inj 1 Ml SUBCUT 5,000 unit Q12H [facility] Administration Lactated Ringer's 1,000 mls @ 100 mls/hr 08/09/21 08:45 08/11/21 09:55 Lactated Ringers IV 100 mls/hr .Q10H [facility] Administration Imipenem/Cilastatin Sodium 250 100 mls @ 200 mls/hr 08/11/21 09:00 08/11/21 08:49 mg/ Sodium Chloride IV 200 mls/hr Q12H [facility] Administration Protocol Insulin Human Lispro 0 unit 08/08/21 11:30 08/11/21 06:22 Insulin Lispro 100 Unit/1 Ml SUBCUT Not Given Q6H [facility] Protocol Pantoprazole Sodium 40 mg 08/08/21 09:00 08/11/21 08:50 Pantoprazole 40 Mg Sdv IVP 40 mg BID [facility] Administration PFSH Acute PFSH: Medical History (Updated 08/11/21 @ 10:38 by Osvaldo Epperson) Acute UTI Dementia Surgical History (Updated 08/09/21 @ 11:22 by Bill Restrepo MD) Status post laparoscopic cholecystectomy (08/08/21) Family History Other Unknown family medical history Social History Smoking and tobacco status: unknown if ever smoked Alcohol intake: unknown Substance/Drug Use: unknown Vitals/I&O/Wt Last Vital Signs Temp 98.3 F 08/11/21 08:00 Pulse 96 08/11/21 08:00 Resp 15 08/11/21 08:16 BP 156/72 08/11/21 08:00 Pulse Ox 99 08/11/21 08:16 08/10/21 08/11/21 08/11/21 22:59 06:59 14:59 Intake Total 1051.667 / 2203.667 1000 / 3203.667 Output Total 50 / 150 115 / 265 Balance 1001.667 / 2053.667 885 / 2938.667 Weight last 48 hrs Weight 56.699 kg Physical Exam Narrative: Constitutional: Sedated and vented HEENT: Wet mucosa, no jvp, non icteric Lungs: Bilaterally clear without discernible wheeze, rales in all lung zones CVS: S1 S2, no murmurs Abdo: Soft, BS ok Ext 4: Minimal edema, peripheral perfusion with no cyanosis Neurological: Grossly non-focal Urinary Catheter Management: Salcedo: Cath Placed During This Visit: yes Reason for Continuing Indwelling Catheter: Accurate Measurement of Urinary Output in Critically Ill Patients Urinary Catheter Date of Insertion: 08/07/21 Urinary Catheter Time of Insertion: 15:33 Data : 08/11/21 03:34 08/11/21 03:34 Micro: Microbiology 08/08/21 02:50 Urine Culture - Final Urine Catheterized A&P Assessment and plan (1) Acute renal failure (ARF): Status: Acute Plan 1. Acute kidney injury Progressively oliguric acute kidney injury less likely ischemic ATN from the significant fluctuations in hemodynamics sustained on 08/08. IV contrast unlikely causative, however, may have contributed. No acute indication for hemodialysis, however, as she is currently oliguric there is a high risk of requiring this in the next 24-48 hours. No further imaging is required We will do a limited evaluation to include repeat urinalysis with urine sodium, creatinine, serum uric acid, CPK, TSH. Daily renal panel Strict I's and O's Dose medication for GFR less than 15 2. Chemistry Acidosis noted, normalization of pH on ABG. Will defer alkalinization at this time. Corrected calcium okay. 3. Gangrenous cholecystitis Status post lap hodan, postop day 3 Management per surgery Culture data remains negative Antibiotics per medical team 4. Vent dependent respiratory failure Currently on minimal sedation, weaning as tolerated per ICU team. Thank you for consultation Osvaldo Epperson MD Nephrology [phone] Patient seen and examined via telemedicine, with the assistance of the bedside RN > 25 min spent in evaluation and mgmt of patient Coding Level of Care Code Acute Prompt Care Rn for [facility] Fwd Diagnoses Acute renal failure (ARF) N17.9
[2021-08-11 11:00] LABS: Glucose Point of Care 141 mg/dL (70-110)
[2021-08-11 12:15] LABS: Thyroid Stimulating Hormone 1.34 uIU/mL (0.27-4.20); Uric Acid 7.5 mg/dL (2.4-5.7)
--- NOTE | 2021-08-11 12:18 | PC.SLP ---
CERTIFIED OPHTHALMIC MEDICAL TECHNICIAN unable to complete eval at this time due to pt unresponsiveness.
[2021-08-11 12:43] LABS: Creatine Phosphokinase 721 U/L (26-192)
--- NOTE | 2021-08-11 12:48 | PC.OT ---
HOLD OT EVALUATION PER NURSING; FAMILY DISCUSSING COMFORT CARE
--- NOTE | 2021-08-11 13:07 | PM.PN ---
Subjective Subjective: Seen this morning. Pupils are fixed. Patient is completely unresponsive. She does not respond to sternal rub either. No other acute events overnight. Urine output has been oliguric. 100 cc in last 24 hours. Nephrology consult was placed. From chart review it is noted that patient was made DNR/DNI yesterday with family Vitals/I&O/Wt Last Vital Signs Temp 98.3 F 08/11/21 10:00 Pulse 96 08/11/21 10:00 Resp 17 08/11/21 11:41 BP 156/72 08/11/21 10:00 Pulse Ox 99 08/11/21 11:41 08/10/21 08/11/21 08/11/21 22:59 06:59 14:59 Intake Total 1051.667 / 2203.667 1000 / 3203.667 Output Total 50 / 150 115 / 265 Balance 1001.667 / 2053.667 885 / 2938.667 Weight last 48 hrs Weight 56.699 kg Physical Exam Narrative: Constitutional: Sedated and vented ? HEENT: Wet mucosa, no jvp, non icteric, fixed pupils. Lungs: Bilaterally clear without discernible wheeze, rales in all lung zones CVS: S1 S2, no murmurs Abdo: Soft, BS ok Ext 4: Minimal edema, peripheral perfusion with no cyanosis Neurological: Grossly non-focal Urinary Catheter Management: Salcedo: Cath Placed During This Visit: yes Reason for Continuing Indwelling Catheter: Accurate Measurement of Urinary Output in Critically Ill Patients Urinary Catheter Date of Insertion: 08/07/21 Urinary Catheter Time of Insertion: 15:33 Data : 08/11/21 03:34 08/11/21 11:30 Micro: Microbiology 08/08/21 02:50 Urine Culture - Final Urine Catheterized A&P Assessment and plan (1) Acute renal failure (ARF): Status: Acute (2) Status post laparoscopic cholecystectomy: Status: Acute (3) Sepsis: Status: Acute (4) Acute cholecystitis: Status: Acute (5) Altered mental status: Status: Acute (6) ATN (acute tubular necrosis): Status: Acute (7) High anion gap metabolic acidosis: Status: Acute Plan #Vent dependent respiratory failure #Sepsis secondary to gangrenous cholecystitis status post lap hodan postop day 3 #Acute kidney injury, most likely ischemic ATN, #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 #Type 2 diabetes mellitus #Acute metabolic encephalopathy, baseline dementia #Uncontrolled hypertension?resolved #Anemia?stable -Patient was diagnosed with a stroke 08/10/2021. Acute or subacute infarct in posterior limb of right internal capsule, new from 08/07/2021. Continue on aspirin 300 MT, Lipitor 20 mg daily. -WBC count has been trending up neutrophils increasing. We will switch from Zosyn to imipenem today. -Patient is off sedation. On and off SBT trial. Continue SBT trial daily. Once patient wakes up we will assess her neurologic status. -Nephrology following for RONALDO. Patient possibly needs temporary dialysis. There was evidence of low blood pressure episode and she could possibly have ischemic ATN. We will discussed this with the family. ? Blood pressure is stable without any medications at this time. We will continue to monitor. ? OG tube to be placed today. We will start tube feed as per nutrition recommendations. - Check ABG -I have called family and updated them with patient's status. They will make a decision regarding potential of temporary dialysis and get back to me. Prognosis remains poor. Allow natural . Attestations Medical Necessity Statement*: Intubated. Requires ICU level care. Critical Care Time: 35 Coding Level of Care Code Acute Toggle Press Folder And Feeder for Chg Fwd Diagnoses Acute renal failure (ARF) N17.9 Status post laparoscopic cholecystectomy Z90.49 Sepsis A41.9 Acute cholecystitis K81.0 Altered mental status R41.82 ATN (acute tubular necrosis) N17.0 High anion gap metabolic acidosis E87.2
[2021-08-11 14:28] LABS: Phosphorus 6.8 mg/dL (2.5-4.5)
[2021-08-11 16:29] LABS: Add Urine Culture? No; Amorphous Sediment Urine 3+ /hpf; Bacteria Urine TRACE /hpf; Bilirubin Urine Neg (Negative); Blood Urine Neg (Negative); Glucose Urine UA Norm (Normal); Ketones Urine Negative (Negative); Leukocyte Esterase Urine Negative (Negative); Nitrate Urine Negative (Negative); Protein Urine Neg (Negative); RBC Urine 0-4 /hpf (0-2); Squamous Epithelial Cell Urine 0-4 /hpf (0-5); Urine Appearance Clear (CLEAR); Urine Color Yellow (Yellow); Urobilinogen Urine Norm (Negative); pH Urine 5 (5-7)
[2021-08-11 16:38] LABS: Urine Random Sodium 25 mmol/L
[2021-08-11 17:10] LABS: Glucose Point of Care 204 mg/dL (70-110)
[2021-08-11] MEDS: insulin lispro 100 unit/1 mL SUBCUT ×2 (17:24→23:37)
[2021-08-11] MEDS: atorvastatin 40 mg Tablet 20 MG PO (20:08)
[2021-08-11 23:39] LABS: Glucose Point of Care 174 mg/dL (70-110)
[2021-08-12] VITALS (57 sets, daily range): BP systolic 124–196; BP diastolic 56–140; PULSE 87–102; RESP 15–19; TEMP 36.9–37.2; O2SAT 96–100; BMI 20.3
[2021-08-12] MEDS: heparin 5,000 unit/mL INJ 1 mL 5000 UNIT SUBCUT ×2 (02:27→15:17)
[2021-08-12 03:40] LABS: Basophils # 0.1 10^3/uL (0.0-0.1); Basophils % 0.5 %; Eosinophils % 0.2 %; Hemoglobin 9.9 g/dL (11.5-15.3); Lymphocytes # 0.6 10^3/uL (0.8-4.8); Lymphocytes % 3.1 %; Mean Corpuscular Hemoglobin 31.4 pg (28.0-34.0); Mean Corpuscular Volume 104.8 fl (81-99); Mean Platelet Volume 10.9 fL (7.4-10.4); Monocytes # 0.7 10^3/uL (0.2-0.9); Monocytes % 3.7 %; Neutrophils % 88.3 %; Nucleated Red Blood Cells % 0.2 %; Platelet Count 207 10^3/cmm (130-400); Red Blood Count 3.15 10^6/uL (4.1-5.3); Red Cell Distribution Width 13.9 % (12.1-15.1); White Blood Count 19.2 10^3/uL (4.0-10.0)
[2021-08-12 04:03] LABS: Alanine Aminotransferase 27 U/L (0-33); Albumin Level 1.7 g/dL (3.5-5.2); Alkaline Phosphatase 61 IU/L (35-105); Aspartate Amino Transferase 40 U/L (0-32); Blood Urea Nitrogen 77 mg/dL (8-23); Calcium 7.3 mg/dL (8.5-10.5); Carbon Dioxide 16 mmol/L (22-29); Chloride 106 mmol/L (98-107); Globulin 3.5 g/dL (1.3-4.6); Glucose 134 mg/dL (65-115); Osmolality Calculated 317 mOsm/kg (285-295); Sodium 141 mmol/L (136-145); Total Bilirubin 0.3 mg/dL (0.15-1.2); Total Protein 5.2 g/dL (6.6-8.7)
[2021-08-12 05:33] LABS: Glucose Point of Care 174 mg/dL (70-110)
[2021-08-12] MEDS: insulin lispro 100 unit/1 mL SUBCUT ×3 (05:39→23:41)
[2021-08-12] MEDS: lactated ringers 1,000 ML 100 ML IV (06:11)
--- NOTE | 2021-08-12 06:17 | PC.NURSE ---
Shift Summary Patient had an uneventful shift, remains unresponsive to painful/verbal stimuli and intubated. Vent settings are as follows mode-CMV, FiO2-26%, VT-350, PEEP-5, rate-12. OG tube remains clamped. No wounds or skin issues noted at this time. Salcedo catheter drained 200 mls of urine overnight. Turned and repositioned patient for comfort with help from staff.
[2021-08-12] MEDS: ipratropium-albuterol 3 mL Neb INHALATION (08:06)
[2021-08-12 08:07] LABS: Glucose Point of Care 150 mg/dL (70-110)
[2021-08-12] MEDS: aspirin 300 mg Supp PR (09:34)
[2021-08-12] MEDS: pantoprazole 40 mg SDV IVP ×2 (09:34→17:22)
--- NOTE | 2021-08-12 10:04 | PC.OT ---
PER NURSING, PATIENT CONTINUES TO BE UNRESPONSIVE DESPITE BEING OFF OF SEDATION FOR SEVERAL DAYS. PATIENT NOT ACTIVELY ABLE TO PARTICIPATE IN SKILLED OT AT THIS TIME. WILL DISCHARGE OT ORDER AND AWAIT FURTHER COMMUNICATION AND ORDERS REGARDING PATIENT.
--- NOTE | 2021-08-12 10:05 | PC.SOCIAL ---
IMM Update pg 2 of IMM not updated. Patient is intubated and in critical condition. DC is not anticipated soon.
--- NOTE | 2021-08-12 11:36 | PM.PN ---
Subjective Subjective: Ms Mantilla remains critically sick in the ICU. She is still not waking up despite the sedation now being off for the last few days. Urine output remains marginal, producing only 275 mL over the last 24 hours. Off vasopressor agents. FiO2 26%. Medications: Reviewed: Yes Medication Review Details: Generic Name Dose Route Start Last Admin Trade Name Freq PRN Reason Stop Dose Admin Acetaminophen 650 mg 08/09/21 08:41 08/09/21 23:57 Acetaminophen 65 0 Mg Supp MN 650 mg Q6H PRN Administration FEVER Heparin Sodium (Po rcine) 5,000 unit 08/09/21 14:30 08/10/21 02:23 Heparin 5,000 Un it/Ml Inj 1 Ml SUBCUT 5,000 unit Q12H [place] Administration Lactated Ringer's 1,000 mls @ 100 m ls/hr 08/09/21 08:45 08/10/21 10:06 Lactated Ringers IV Not Given .Q10H [place] Piperacillin Sod/T azobactam 100 mls @ 25 mls/ hr 08/09/21 16:30 08/10/21 08:45 Sod 3.375 gm/ So dium Chloride IV Infused Q12H [facility] Infusion Protocol Insulin Human Lisp ro 0 unit 08/08/21 11:30 08/10/21 06:38 Insulin Lispro 1 00 Unit/1 Ml SUBCUT Not Given Q6H [facility] Protocol Pantoprazole Sodiu m 40 mg 08/08/21 09:00 08/10/21 08:38 Pantoprazole 40 Mg Sdv IVP 40 mg BID [place] Administration Vitals/I&O/Wt Last Vital Signs Temp 98.4 F 08/12/21 09:00 Pulse 93 08/12/21 09:00 Resp 16 08/12/21 11:22 BP 163/73 08/12/21 09:00 Pulse Ox 99 08/12/21 11:22 08/11/21 08/12/21 08/12/21 22:59 06:59 14:59 Intake Total 1100 / 1300 1000 / 2300 Output Total 75 / 75 200 / 275 Balance 1025 / 1225 800 / 2025 Weight last 48 hrs Weight 57.294 kg Weight 56.699 kg Physical Exam Narrative: Constitutional: Sedated and vented HEENT: Wet mucosa, no jvp, non icteric Lungs: Bilaterally clear without discernible wheeze, rales in all lung zones CVS: S1 S2, no murmurs Abdo: Soft, BS ok Ext 4: Minimal edema, peripheral perfusion with no cyanosis Neurological: Grossly non-focal Urinary Catheter Management: Salcedo: Cath Placed During This Visit: yes Reason for Continuing Indwelling Catheter: Accurate Measurement of Urinary Output in Critically Ill Patients Urinary Catheter Date of Insertion: 08/07/21 Urinary Catheter Time of Insertion: 15:33 Data : 08/12/21 03:15 08/12/21 03:15 A&P Assessment and plan (1) Acute renal failure (ARF): Status: Acute Plan 1. Acute kidney injury Progressively oliguric acute kidney injury less likely ischemic ATN from the significant fluctuations in hemodynamics sustained on 08/08. IV contrast unlikely causative, however, may have contributed. No acute indication for hemodialysis, however, as she is currently oliguric there is a high risk of requiring this in the next 24-48 hours. On going discussion about goals of care and the appropriateness of renal replacement therapy Daily renal panel Strict I's and O's Dose medication for GFR less than 15 2. Chemistry Acidosis noted, normalization of pH on ABG. Will defer alkalinization at this time. Corrected calcium okay. 3. Gangrenous cholecystitis Status post lap hodan, postop day 4 Management per surgery Culture data remains negative Antibiotics per medical team 4. Vent dependent respiratory failure Currently on minimal sedation 5. S/p CVA Neuro input pending with ongoing discussion of goals of care Thank you for consultation Osvaldo Epperson MD Nephrology [phone] Patient seen and examined via telemedicine, with the assistance of the bedside RN > 25 min spent in evaluation and mgmt of patient Attestations Medical Necessity Statement*: eval for RONALDO Coding Level of Care Code Acute Panama Hat Blocker for Chg Fwd Diagnoses Acute renal failure (ARF) N17.9
--- NOTE | 2021-08-12 11:41 | P.PN_ITS ---
Subjective Subjective: Seen this morning. No change in status compared to yesterday patient remains unresponsive. She has fixed pinpoint pupils. He does not have any reflexes. Family also seen at bedside after initial visit. Vitals/I&O/Wt Last Vital Signs Temp 98.4 F 08/12/21 09:00 Pulse 93 08/12/21 09:00 Resp 16 08/12/21 11:22 BP 163/73 08/12/21 09:00 Pulse Ox 99 08/12/21 11:22 08/11/21 08/12/21 08/12/21 22:59 06:59 14:59 Intake Total 1100 / 1300 1000 / 2300 Output Total 75 / 75 200 / 275 Balance 1025 / 1225 800 / 2025 Weight last 48 hrs Weight 57.294 kg Weight 56.699 kg Physical Exam Narrative: General: Intubated and on mechanical ventilation, off sedation for greater than 72 hours HEENT: Normocephalic, atraumatic, EOMI, breathing on the vent Cardio: Regular rate rhythm, normal S1-S2, systolic murmur present. Respiratory: Good bilateral air entry, no wheezes no rhonchi appreciated GI: Abdomen soft, nontender, nondistended, bowel sounds + Extremities: Pulses 2+, no edema, no cyanosis Neuro: Unable to assess cranial nerves. No gag reflex, knee jerk reflex absent, Achilles reflex absent. Does not wake up to sternal rub. Does not withdraw to pain. Possibly positive doll's eye sign. Pinpoint pupils bilaterally but do not respond to light. Urinary Catheter Management: Salcedo: Cath Placed During This Visit: yes Reason for Continuing Indwelling Catheter: Accurate Measurement of Urinary Output in Critically Ill Patients Urinary Catheter Date of Insertion: 08/07/21 Urinary Catheter Time of Insertion: 15:33 Data : 08/12/21 03:15 08/12/21 03:15 A&P Assessment and plan (1) ATN (acute tubular necrosis): Status: Acute (2) Acute renal failure (ARF): Status: Acute (3) Sepsis: Status: Acute (4) Acute cholecystitis: Status: Acute (5) Status post laparoscopic cholecystectomy: Status: Acute (6) Colitis: Status: Acute (7) Acute UTI: Status: Acute (8) Altered mental status: Status: Acute Plan #Unresponsive comatose state #Vent dependent respiratory failure #Sepsis secondary to gangrenous cholecystitis status post lap hodan postop day 4 #Acute kidney injury, most likely ischemic ATN, #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 #Type 2 diabetes mellitus #Acute metabolic encephalopathy, baseline dementia #Uncontrolled hypertension?resolved #Anemia?stable -Patient was diagnosed with a stroke 08/10/2021.? Acute or subacute infarct in posterior limb of right internal capsule, new from 08/07/2021.? Continue on aspirin 300 NC, Lipitor 20 mg daily. -Continue imipenem. -Patient is off sedation.? On and off SBT trial.? Continue SBT trial daily.? -Patient has pinpoint fixed pupils and is unresponsive. Has a very positive neurological exam. Does not have reflexes. Possibly positive doll's eye sign. I will consult neurology for further evaluation and possible EEG. -Nephrology following for RONALDO.? Patient possibly needs temporary dialysis.? There was evidence of low blood pressure episode and she could possibly have ischemic ATN.? Family did not make a decision on dialysis yet. ? Had a long discussion with family regarding patient's current status. They would like to wait for neurological recommendation before making any decisions. ? Continue tube feeds as per nutrition recommendations. - Await neuro consult. Prognosis remains poor. Allow natural . Attestations Medical Necessity Statement*: requires icu level care Critical Care Time: Examined patient in detail, reviewed chart, talked to consultatnts, and had discussion wth family. Critical Care Time (min): 60 Coding Level of Care Code Acute Operations Research Scientist for [facility] Fwd Diagnoses ATN (acute tubular necrosis) N17.0 Acute renal failure (ARF) N17.9 Sepsis A41.9 Acute cholecystitis K81.0 Status post laparoscopic cholecystectomy Z90.49 Colitis K52.9 Acute UTI N39.0 Altered mental status R41.82
--- NOTE | 2021-08-12 15:06 | PM.PN ---
Subjective Subjective: Patient is unresponsive, unarousable, does not appear to have any brainstem reflexes. She is currently receiving tube feeds. Hospital service had extensive discussions with the patient's family Vitals/I&O/Wt Last Vital Signs Temp 98.4 F 08/12/21 09:00 Pulse 89 08/12/21 14:00 Resp 16 08/12/21 12:58 BP 155/67 08/12/21 14:00 Pulse Ox 99 08/12/21 13:30 08/12/21 08/12/21 08/12/21 06:59 14:59 22:59 Intake Total 1000 / 2300 240 / 240 Output Total 200 / 275 Balance 800 / 2025 240 / 240 Weight last 48 hrs Weight 126 lb 5 oz Weight 125 lb Physical Exam Narrative: Abdomen: Soft, nondistended, incision clean dry and intact Patient intubated on the mechanical ventilation Urinary Catheter Management: Salcedo: Cath Placed During This Visit: yes Reason for Continuing Indwelling Catheter: Accurate Measurement of Urinary Output in Critically Ill Patients Urinary Catheter Date of Insertion: 08/07/21 Urinary Catheter Time of Insertion: 15:33 Data : 08/12/21 03:15 08/12/21 03:15 Micro: Microbiology 08/07/21 14:15 Blood Culture - Final Blood NO GROWTH AFTER 5 DAYS 08/07/21 14:10 Blood Culture - Final Blood NO GROWTH AFTER 5 DAYS A&P Assessment and plan (1) Status post laparoscopic cholecystectomy: 85-year-old female status post laparoscopic cholecystectomy for acute gangrenous cholecystitis. Patient has had a CVA and has ARF with loss of brainstem function. Medical management as per hospitalist service Continue tube feeds until decision is made by the family Status: Acute Attestations Medical Necessity Statement*: As per primary Coding Level of Care Code Acute Seam Steamer for Chg Fwd Diagnoses Status post laparoscopic cholecystectomy Z90.49
[2021-08-12 16:42] LABS: Glucose Point of Care 223 mg/dL (70-110)
--- NOTE | 2021-08-12 18:10 | PM.CONSULT ---
Providers/Reason For Consult Consulting Physician/Specialty*: Britt Amaral Reason for Consult*: , And prognosis Requesting Physician: Britt Amaral Attending Physician: Britt Amaral MD History of Present Illness History of Present Illness Jeancarlos Hernandez is a 86 year old woman who is well-known to me for many years. I have not seen her in several years. She presented here 08/07/2021 with altered mental status to the point that she was responsive only to her name. She had a low-grade fever. She had acute gangrenous cholecystitis. Patient was admitted to [facility] several weeks before with a urinary tract infection. According to the anesthesiologist's note, a friend of the family who has the same address as the patient said that she was weak and declined mentally over the last several weeks since discharge from [facility]. At one point she hit her head. She had frequent falls of late. She had a stroke in the past with persistent left-sided weakness but reportedly up until now she had normal mentation and was ambulating on her own. She lives with her who suffers from expressive aphasia but reportedly has normal mentation. She was taken to surgery 08/08/2021 for what proved to be a gangrenous gallbladder and a large gallstone. Postop, her white count fell from 30 down to 11 but she has had no meaningful signs of brain function since sedatives were withdrawn 08/09/2021. Laboratory exam from today shows stable hemoglobin and hematocrit with high MCV 105. She has chronic and acute renal failure and is being followed by nephrology. Dialysis being contemplated. Her creatinine is 4.2. CPK was [address] scan of the head on 08/07/2021 showed chronic lacunar infarcts in both subcortical regions, the most noticeable in the right thalamus and left basal ganglia. Repeat CT of the head/ shows an evolving fairly large subcortical stroke right internal capsule right middle cerebral artery distribution. There is a density in the anterior ed that is present on several cuts, was not present on 08/07, but I am not sure it is an artifact as it is just posterior to a small meningioma on the tentorium. Medications/Allergies Home Medications Medication Instructions Recorded Confirmed Last Taken Type atorvastatin 40 mg tablet 40 mg PO DAILY 08/07/21 08/07/21 Unknown History clopidogrel 75 mg tablet (Plavix) 75 mg PO DAILY 08/07/21 08/07/21 Unknown History insulin degludec 200 unit/mL (3 8 unit SUBCUT BEDTIME 08/07/21 08/07/21 Unknown History mL) subcutaneous pen (Tresiba FlexTouch U-200 insulin) isosorbide mononitrate 30 mg 30 mg PO DAILY 08/07/21 08/07/21 Unknown History tablet,extended release 24 hr losartan 50 mg tablet 50 mg PO DAILY 08/07/21 08/07/21 Unknown History melatonin 3 mg tablet 3 mg PO BEDTIME 08/07/21 08/07/21 Unknown History metformin 850 mg tablet 850 mg PO BID 08/07/21 08/07/21 Unknown History metoprolol tartrate 25 mg tablet 50 mg PO BID 08/07/21 08/07/21 Unknown History omeprazole 40 mg capsule,delayed 40 mg PO DAILY 08/07/21 08/07/21 Unknown History release polyethylene glycol 3350 17 17 g PO DAILY PRN 08/07/21 08/07/21 Unknown History gram/dose oral powder (Miralax) Allergies Allergy/AdvReac Type Severity Reaction Status Date / Time No Known Allergies Allergy Verified 08/07/21 13:54 Current Medications Generic Name Dose Route Start Last Admin Trade Name Freq PRN Reason Stop Dose Admin Acetaminophen 650 mg 08/09/21 08:41 08/09/21 23:57 Acetaminophen 650 Mg Supp AR 650 mg Q6H PRN Administration FEVER Albuterol/Ipratropium 3 ml 08/07/21 21:29 08/12/21 08:06 Ipratropium-Albuterol 3 Ml Neb INHALATION 3 ml Q6H PRN Administration SHORTNESS OF BREATH Aspirin 300 mg 08/11/21 09:00 08/12/21 09:34 Aspirin 300 Mg Supp AR 300 mg DAILY CLIFTON Administration Atorvastatin Calcium 20 mg 08/10/21 21:00 08/11/21 20:08 Atorvastatin 40 Mg Tablet PO 20 mg BEDTIME CL[place]ON Administration Heparin Sodium (Porcine) 5,000 unit 08/09/21 14:30 08/12/21 15:17 Heparin 5,000 Unit/Ml Inj 1 Ml SUBCUT 5,000 unit Q12H CL[place]ON Administration Imipenem/Cilastatin Sodium 250 100 mls @ 200 mls/hr 08/11/21 09:00 08/12/21 09:34 mg/ Sodium Chloride IV 25 mls/hr Q12H CL[place]ON Administration Protocol Insulin Human Lispro 0 unit 08/08/21 11:30 08/12/21 17:11 Insulin Lispro 100 Unit/1 Ml SUBCUT 6 unit Q6H CL[place]ON Administration Protocol Pantoprazole Sodium 40 mg 08/08/21 09:00 08/12/21 17:22 Pantoprazole 40 Mg Sdv IVP 40 mg BID CL[place]ON Administration PFSH Acute PFSH: Medical History (Updated 08/12/21 @ 20:16 by Nora Nichole MD) Acute UTI Dementia Surgical History (Updated 08/09/21 @ 11:22 by Bill Restrepo MD) Status post laparoscopic cholecystectomy (08/08/21) Family History Other Unknown family medical history Social History Smoking and tobacco status: unknown if ever smoked Alcohol intake: unknown Substance/Drug Use: unknown Vitals/I&O/Wt Last Vital Signs Temp 98.4 F 08/12/21 17:00 Pulse 94 08/12/21 17:00 Resp 19 H 08/12/21 18:00 BP 155/67 08/12/21 17:00 Pulse Ox 99 08/12/21 17:39 08/12/21 08/12/21 08/12/21 06:59 14:59 22:59 Intake Total 1000 / 2300 240 / 240 166 / 406 Output Total 200 / 275 120 / 120 Balance 800 / 2025 240 / 240 46 / 286 Weight last 48 hrs Weight 126 lb 5 oz Weight 125 lb Physical Exam Narrative: General: Attractive elderly woman who does not look as although she is. Mental status exam: There was no response to voice. In response to brow pressure she has twitching and inward rotation of the left shoulder and slight grimace on the left. In response to nailbed pressure she has withdrawal of the left arm and left leg. No response to pain on the right. Cranial nerves: Pupils pinpoint. She has a strong right gaze deviation that can be partially overcome by doll's eyes but she does not go beyond the midline. No convincing facial movement. Sensory/motor: Some movement on the left pain. None on the right. Deep tendon reflexes: Toes bilaterally upgoing. She is areflexic throughout. Cardiac: S1 and S2 normal without murmur or gallop. Chest: Clear to auscultation Abdomen nontender Extremities: No deformities. Urinary Catheter Management: Salcedo: Cath Placed During This Visit: yes Reason for Continuing Indwelling Catheter: Accurate Measurement of Urinary Output in Critically Ill Patients Urinary Catheter Date of Insertion: 08/07/21 Urinary Catheter Time of Insertion: 15:33 Data : 08/12/21 03:15 08/12/21 03:15 Micro: Microbiology 08/07/21 14:15 Blood Culture - Final Blood NO GROWTH AFTER 5 DAYS 08/07/21 14:10 Blood Culture - Final Blood NO GROWTH AFTER 5 DAYS A&P Assessment and plan (1) Right middle cerebral artery stroke: 86-year-old woman who unfortunately had smoldering cholecystitis that culminated in a gangrenous gallbladder and sepsis. She had excellent response to cholecystectomy with reduced white count and improved metabolic factors but unfortunately her mental status has not recovered. She was barely responsive on arrival and after surgery she has not shown signs of recovery and in fact now has a multifocal exam that includes strong right gaze preference with right hemiparesis which could suggest a pontine stroke. The fact that I could slightly overcome her right gaze preference would be more in favor of right middle cerebral artery origin for that finding. We then have to explain her dense right hemiplegia which could be from an additional stroke in the left hemisphere or could be brainstem. In either case we have multiple ischemic lesions, the new one in the right subcortical region documented by CAT scan and the rest presumed based on exam. Her risk factors for multifocal stroke include longstanding diabetes and hypertension, acute renal failure, sepsis. The case was discussed extensively with Dr. Amaral. I will be glad to talk with her when he is present but would not hope to do so over the phone. I will try to make myself available in the morning. Best plan at this point would be to go ahead with dialysis and life maintaining measures while initiating gradual withdrawal of respiratory support if her is in agreement. Status: Acute (2) Brainstem stroke: Status: Acute Consult Attestations Medical Necessity Statement: Profoundly ill with coma and requirement for endotracheal intubation and respiratory support Coding Level of Care Code Acute Intern Product Marketing Manager for [facility] Diagnoses Right middle cerebral artery stroke I63.511 Brainstem stroke I63.9
[2021-08-12 20:14] LABS: Vitamin B12 > 2000 pg/mL (232-1245)
[2021-08-12] MEDS: atorvastatin 40 mg Tablet 20 MG PO (20:22)
--- NOTE | 2021-08-12 23:11 | PC.NURSE ---
Patient had spontaneous movement of left foot. Withdrawal from painful stimuli of left hand and left foot. Right foot positive babinski reflex.
[2021-08-12 23:33] LABS: Glucose Point of Care 239 mg/dL (70-110)
[2021-08-13] VITALS (40 sets, daily range): BP systolic 114–181; BP diastolic 63–83; PULSE 84–102; RESP 15–19; TEMP 37.1–37.2; O2SAT 95–100
[2021-08-13] MEDS: heparin 5,000 unit/mL INJ 1 mL 5000 UNIT SUBCUT ×2 (01:48→14:42)
[2021-08-13 02:18] LABS: Glucose Point of Care 246 mg/dL (70-110)
[2021-08-13 05:04] LABS: Glucose Point of Care 277 mg/dL (70-110)
[2021-08-13] MEDS: insulin lispro 100 unit/1 mL SUBCUT ×3 (05:09→17:33)
[2021-08-13 07:57] LABS: Base Excess VBG -4.6 mmol/L (-3.0-3.0); Blood Gas Operator Identificat BD; Blood Gas Sample Site VEIN; Blood Gas Sample Type Venous; Blood Gas Tidal Volume 0.35; HCO3 VBG 18.8 mmol/L (24-28); Oxygen Device VENT; PCO2 VBG 28.1 mmHg (41-51); PO2 VBG 89.9 mmHg (25-40); Venous Blood Gas Hematocrit 27.9 % (37-47); pH VBG 7.44 (7.32-7.42)
[2021-08-13 08:00] LABS: Basophils # 0.1 10^3/uL (0.0-0.1); Basophils % 0.4 %; Eosinophils # 0.1 10^3/uL (0.0-0.8); Eosinophils % 0.4 %; Hemoglobin 8.7 g/dL (11.5-15.3); Lymphocytes # 0.4 10^3/uL (0.8-4.8); Lymphocytes % 3.6 %; Mean Corpuscular HGB Conc 31.1 g/dL (30.0-36.0); Mean Corpuscular Hemoglobin 31.2 pg (28.0-34.0); Mean Corpuscular Volume 100.4 fl (81-99); Mean Platelet Volume 10.5 fL (7.4-10.4); Monocytes # 0.5 10^3/uL (0.2-0.9); Monocytes % 4.5 %; Neutrophils # 9.64 10^3/uL (1.8-7.7); Neutrophils % 85.1 %; Nucleated Red Blood Cells % 0.2 %; Platelet Count 244 10^3/cmm (130-400); Red Blood Count 2.79 10^6/uL (4.1-5.3); Red Cell Distribution Width 13.5 % (12.1-15.1); White Blood Count 11.3 10^3/uL (4.0-10.0)
[2021-08-13 08:14] LABS: Alanine Aminotransferase 19 U/L (0-33); Albumin Level 1.9 g/dL (3.5-5.2); Alkaline Phosphatase 62 IU/L (35-105); Anion Gap 19.9 (5-19); Aspartate Amino Transferase 21 U/L (0-32); Calcium 7.4 mg/dL (8.5-10.5); Carbon Dioxide 18 mmol/L (22-29); Chloride 109 mmol/L (98-107); Globulin 2.8 g/dL (1.3-4.6); Glucose 223 mg/dL (65-115); Magnesium 1.9 mg/dL (1.7-2.3); Osmolality Calculated 327 mOsm/kg (285-295); Phosphorus 5.8 mg/dL (2.5-4.5); Potassium 3.9 mmol/L (3.5-5.1); Sodium 143 mmol/L (136-145); Total Bilirubin 0.2 mg/dL (0.15-1.2); Total Protein 4.7 g/dL (6.6-8.7)
[2021-08-13 08:17] LABS: Blood Urea Nitrogen 81 mg/dL (8-23)
[2021-08-13 08:23] LABS: Slide Review Slide Review Perform
[2021-08-13] MEDS: pantoprazole 40 mg SDV IVP ×2 (08:38→17:33)
[2021-08-13] MEDS: aspirin 300 mg Supp PR (08:38)
--- NOTE | 2021-08-13 09:56 | PC.CHAP ---
Pastoral Care Encounter/Spiritual Assessment Type of Contact [] Declined coffee attendant visit [] Patient/Family/Request visit [] Outpatient visit [] Follow-up visit [] Physician referral [] Code/Alert [x] Routine visit [] Staff referral [] Actively dying [] Patient sleeping [] Family support [] [] Out of room [] Palliative care [] [] Receiving care in room [] Pre-surgical visit [] Trauma [] Long length of stay [x] ICU visit [x] Other: vent Relational/Emotional Strength [] Patient feels connected with others/family/visitors/staff [] Distress [] Loneliness/isolation [] Abandonment Spirituality of Patient [] Person of Kelsea [] Attends Buddhism of their [place]a [] Believes in Prayer [] Reads Bible or Sabianist materials [] There are Spiritual issues to be addressed Law Researcher Interventions [x] Prayer [] Active listening [] Non-anxious presence [] Spiritual/emotional support [] Crisis/trauma care [] Spiritual counseling [] Bereavement support [] Provided bereavement packet [] Provided Bible/devotional materials [] Provided toy/stuffed animal, coloring book to patient or family member [] Provided Communion [] Anointing/[place] [] Salvation [x] Completed spiritual assessment [] Other: Impact on Illness or Injury [] Angry [] Fearful [] Anxious [] Often cries [] Exhaustion [] Unable to work [] Unable to attend jain [] Unable to walk/stand [] Unable to read [] Unable to drive [] Unable to eat/drink [] Unable to sleep [] Unable to be with family [] Patient intubated [] Other: Summary Time spent with patient
--- NOTE | 2021-08-13 10:27 | PM.PN ---
Subjective Subjective: Overnight last night her bed was kept flat while her tube feedings were held to avoid aspiration. There was no improvement in her neurologic status. This morning I awaited the arrival of her and her 's brother Toribio and I visited with them and examined the patient in the ICU. I took time to answer questions. Dr. Amaral and I were both present for the discussion and repeat exam which was unchanged compared with last evening. Vitals/I&O/Wt Last Vital Signs Temp 98.7 F 08/13/21 14:00 Pulse 91 08/13/21 14:00 Resp 19 H 08/13/21 17:50 BP 137/70 08/13/21 14:00 Pulse Ox 97 08/13/21 17:50 08/13/21 08/13/21 08/13/21 06:59 14:59 22:59 Intake Total 113.333 / 619.333 0 / 0 Output Total 300 / 420 Balance -186.667 / 199.333 0 / 0 Weight last 48 hrs Weight 144 lb 2 oz Weight 126 lb 5 oz Physical Exam Narrative: Maybe she is slightly more alert than she was in that her eye movements were a little bit more vigorous in terms of blinking and frowning. Cranial nerves continue to be remarkable for pinpoint pupils and right gaze preference which is easily overcome by doll's eyes. The only response to deep pain in the nailbeds or the brow is flexion of the left shoulder and left elbow and withdrawal, weak, in the left leg. The right upper extremity is flaccid and right lower extremity exhibits triple flexion in response to pain. She failed a breathing trial. She was kept on pressure support for couple of hours and was only taking 3 breaths a minute at the end of that. This would indicate very poor respiratory drive on a neurologic basis. Urinary Catheter Management: Salcedo: Cath Placed During This Visit: yes Reason for Continuing Indwelling Catheter: Accurate Measurement of Urinary Output in Critically Ill Patients Urinary Catheter Date of Insertion: 08/07/21 Urinary Catheter Time of Insertion: 15:33 Data : 08/13/21 07:40 08/13/21 07:40 Micro: Microbiology 08/07/21 14:15 Blood Culture - Final Blood NO GROWTH AFTER 5 DAYS 08/07/21 14:10 Blood Culture - Final Blood NO GROWTH AFTER 5 DAYS A&P Assessment and plan (1) Right middle cerebral artery stroke: She has right middle cerebral artery stroke by CAT scan and based on left hemiparesis and right gaze preference. She now has diffuse and profound right sided paralysis and the location of that is unclear. It could be brainstem or cerebral origin. CAT scan will be helpful but is not life-threatening essential at this time. This will be done later today. I spent more than 30 minutes at the bedside reviewing the patient's exam and history with the patient's family. 1 thing I was concerned about was her 's competence and there is no doubt that he is fully competent and that his brother Toribio is a help to the patient and the . Status: Acute Attestations Medical Necessity Statement*: Multisystem failure with respiratory failure and need for intubation and dialysis Coding Level of Care Code Acute Cheese Production Supervisor for susannah Ewing Diagnoses Right middle cerebral artery stroke I63.511
--- NOTE | 2021-08-13 11:00 | PM.DIACAT ---
Procedure Note: Date of procedure: 08/13/21 Pre-op diagnosis: Acute renal failure Post-op diagnosis: same Procedure Performed: IJ dialysis catheter Procedure: Ultrasound guided placement of 12 [place] 16 cm in length temporary dialysis catheter in right I.J. Medications were reviewed to assess for anticoagulant usage is.? Risk and benefit and prevention of central line associated bloodstream infections were discussed with the patient and a consent was obtained.Monitors were placed and monitored throughout the procedure.? All necessary supplies were available prior to start.Hand hygiene was completed prior to start. Maximum barrier technique was utilized including a sterile gown and sterile gloves hat and mask.? Site was prepped with chlorhexidine and a full body drape was placed. 5 mL of 2% lidocaine was injected into the skin with a 25-gauge needle. Both right and left groin as well as rt anterior triangle of neck was evaluated with ultrasound to change the correct site.? Ultrasound-guided right I.J vein stick was obtained in 1 attempt with return of non pulsating venous blood , needle entry into rt I.J vein was tracked? in real-time with ultrasound, there was no intraluminal thrombosis at the access site and the Rt I.J vein , access site vein was fully compressible , a guidewire was then threaded at that point , needle was withdrawn , correct placement of guidewire was tracked with ultrasound before any dilation, serial dilation was done , dilator was then taken out , guidewire position was intact , thereafter 12 [place] 16 cm dialysis catheter was introduced, guidewire was removed, Venous and arterial hubs were flushed and retrieved venous blood without difficulty. The catheter was then secured to the skin with sutures Biopatch was applied hep locks were then applied.? Patient tolerated the procedure well. Estimated blood loss (mL): 10 Estimated blood loss (mL): 10 Coding Level of Care Code Acute Hand Stoner for Lucian Ewing
--- NOTE | 2021-08-13 11:45 | XR_ITS ---
WS: [id number] PORTABLE CHEST HISTORY: dialysis catheter COMPARISON: 08/11/2021 Right-sided central line with tip overlying the distal SVC. Endotracheal nasogastric tubes are in goo d position. Blunting of the LEFT costophrenic angle with a small effusion. No pneumothorax identified. Cardiac size: Normal. Mediastinum/Aorta: Mild atherosclerosis aorta. No osseous abnormality seen. XR/XR chest 1V portable [id number] IMPRESSION: RIGHT IJ central line with tip in the distal SVC. No complications. Endotracheal and nasogastric tubes remain in good position. Small LEFT pleural effusion.
--- NOTE | 2021-08-13 12:21 | PM.PN ---
Subjective Subjective: Seen and examined this morning. Patient intubated. Family present at bedside. Had a long discussion with family along with neurology present in the room. Also discussed with Dr. Crisostomo. Patient's family would like to proceed with dialysis today. We will do spontaneous breathing trial today. Vitals/I&O/Wt Last Vital Signs Temp 98.7 F 08/13/21 05:00 Pulse 91 08/13/21 08:00 Resp 15 08/13/21 11:34 BP 137/70 08/13/21 07:20 Pulse Ox 99 08/13/21 11:34 08/12/21 08/13/21 08/13/21 22:59 06:59 14:59 Intake Total 166 / 506 113.333 / 619.333 0 / 0 Output Total 120 / 120 300 / 420 Balance 46 / 386 -186.667 / 199.333 0 / 0 Weight last 48 hrs Weight 65.374 kg Weight 57.294 kg Physical Exam Narrative: General: Intubated and on mechanical ventilation, off sedation for greater than 72 hours HEENT: Normocephalic, atraumatic, EOMI, breathing on the vent Cardio: Regular rate rhythm, normal S1-S2, systolic murmur present. Respiratory: Good bilateral air entry, no wheezes no rhonchi appreciated GI: Abdomen soft, nontender, nondistended, bowel sounds + Extremities: Pulses 2+, no edema, no cyanosis Neuro: Unable to assess cranial nerves.? No gag reflex, knee jerk reflex absent, Achilles reflex absent.? Does not wake up to sternal rub.? Does not withdraw to pain.? Pinpoint pupils bilaterally but do not respond to light. Has strong right-sided gaze deviation. No facial movement. Very slight movement of the left with pain. No movement on the right. Left foot slightly removed today. 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 (3) ATN (acute tubular necrosis): Status: Acute (4) Acute renal failure (ARF): Status: Acute (5) Status post laparoscopic cholecystectomy: Status: Acute (6) Comatose: Status: Acute Plan #Acute right cerebral hemisphere stroke, acute brainstem stroke #Unresponsive comatose state #Vent dependent respiratory failure #Sepsis secondary to gangrenous cholecystitis status post lap hodan 08/08 #Acute kidney injury, most likely oliguric ischemic ATN, #Type 2 diabetes mellitus #Acute metabolic encephalopathy, baseline dementia #Uncontrolled hypertension?resolved #Anemia?stable -Patient was diagnosed with a right cerebral hemispheric stroke 08/10/2021.? Also has a brainstem stroke evidenced on clinical neuro logical exam. Will check CTA head and neck with contrast today. Had a discussion with family and nephrology and they are okay with it. There is a risk associated with kidney function not recovering due to contrast administration. ? Continue aspirin per rectal, atorvastatin 80. -Continue imipenem. -Patient is off sedation.? On and off SBT trial.? Continue SBT trial daily.? -Nephrology following for RONALDO. Dialysis to be initiated today. Nephrology on board. Patient recommendations. ? Continue tube feeds as per nutrition recommendations.? -Keep patient off IV fluids. ? Hemoglobin slowly decreasing. We will check for FOBT. -Patient was seen by neurology. Appreciate recommendations. There was a long discussion that took place at bedside yesterday between myself and Dr. Nichole. There was also another discussion done today with the family Dr. Nichole and myself. All questions were answered to family satisfaction. They have decided to proceed with dialysis. They do understand that chances of recovery are very less. Prognosis remains poor. Allow natural . Attestations Medical Necessity Statement*: Intubated. Requires ICU level care. Critical Care Time: Multiple discussions with talent development consultant and family between yesterday and today. Time spent on chart review imaging studies, detailed neurological exam. Critical Care Time (min): 35 Coding Level of Care Code Acute Reinsurance Clerk for g Fwd Diagnoses Brainstem stroke I63.9 Right middle cerebral artery stroke I63.511 ATN (acute tubular necrosis) N17.0 Acute renal failure (ARF) N17.9 Status post laparoscopic cholecystectomy Z90.49 Comatose R40.20
--- NOTE | 2021-08-13 12:31 | PM.PN ---
Subjective Subjective: Patient is unresponsive, unarousable, does not appear to have any brainstem reflexes. She is currently receiving tube feeds. Hospital service had extensive discussions with the patient's family. Patient had dialysis catheter placed Vitals/I&O/Wt Last Vital Signs Temp 98.7 F 08/13/21 05:00 Pulse 91 08/13/21 08:00 Resp 15 08/13/21 11:34 BP 137/70 08/13/21 07:20 Pulse Ox 99 08/13/21 11:34 08/12/21 08/13/21 08/13/21 22:59 06:59 14:59 Intake Total 166 / 619.333 113.333 / 619.333 0 / 0 Output Total 120 / 420 300 / 420 Balance 46 / 199.333 -186.667 / 199.333 0 / 0 Weight last 48 hrs Weight 144 lb 2 oz Weight 126 lb 5 oz Physical Exam Narrative: Abdomen: Soft, nondistended, incision clean dry and intact Patient intubated on the mechanical ventilation Urinary Catheter Management: Salcedo: Cath Placed During This Visit: yes Reason for Continuing Indwelling Catheter: Accurate Measurement of Urinary Output in Critically Ill Patients Urinary Catheter Date of Insertion: 08/07/21 Urinary Catheter Time of Insertion: 15:33 Data : 08/14/21 05:16 08/14/21 04:56 Micro: Microbiology 08/07/21 14:15 Blood Culture - Final Blood NO GROWTH AFTER 5 DAYS 08/07/21 14:10 Blood Culture - Final Blood NO GROWTH AFTER 5 DAYS A&P Assessment and plan (1) Status post laparoscopic cholecystectomy: 85-year-old female status post laparoscopic cholecystectomy for acute gangrenous cholecystitis. Patient has had a CVA and has ARF Medical management as per hospitalist service Continue tube feeds at goal Status: Acute Attestations Medical Necessity Statement*: as per primary Coding Level of Care Code Acute Photoengraving Finisher for Chg Fwd Diagnoses Status post laparoscopic cholecystectomy Z90.49
--- NOTE | 2021-08-13 12:41 | PM.PN ---
Subjective Subjective: Ms. Heranndez remains critically sick in the intensive care unit. She only produced 400 mL of urine over the last 24 hours. Creatinine only marginally improved between 4.2 and 4.1. She remains intubated and mechanically ventilated. She is still neurologically to poor to extubate. Input from neurology is appreciated. Family at bedside. Medications: Reviewed: Yes Medication Review Details: Generic Name Dose Route Start Last Admin Trade Name Freq PRN Reason Stop Dose Admin Acetaminophen 650 mg 08/09/21 08:41 08/09/21 23:57 Acetaminophen 65 0 Mg Supp RI 650 mg Q6H PRN Administration FEVER Heparin Sodium (Po rcine) 5,000 unit 08/09/21 14:30 08/10/21 02:23 Heparin 5,000 Un it/Ml Inj 1 Ml SUBCUT 5,000 unit Q12H [place] Administration Lactated Ringer's 1,000 mls @ 100 m ls/hr 08/09/21 08:45 08/10/21 10:06 Lactated Ringers IV Not Given .Q10H [place] Piperacillin Sod/T azobactam 100 mls @ 25 mls/ hr 08/09/21 16:30 08/10/21 08:45 Sod 3.375 gm/ So dium Chloride IV Infused Q12H [place] Infusion Protocol Insulin Human Lisp ro 0 unit 08/08/21 11:30 08/10/21 06:38 Insulin Lispro 1 00 Unit/1 Ml SUBCUT Not Given Q6H [place] Protocol Pantoprazole Sodiu m 40 mg 08/08/21 09:00 08/10/21 08:38 Pantoprazole 40 Mg Sdv IVP 40 mg BID [place] Administration Vitals/I&O/Wt Last Vital Signs Temp 98.7 F 08/13/21 05:00 Pulse 91 08/13/21 08:00 Resp 15 08/13/21 11:34 BP 137/70 08/13/21 07:20 Pulse Ox 99 08/13/21 11:34 08/12/21 08/13/21 08/13/21 22:59 06:59 14:59 Intake Total 166 / 506 113.333 / 619.333 0 / 0 Output Total 120 / 120 300 / 420 Balance 46 / 386 -186.667 / 199.333 0 / 0 Weight last 48 hrs Weight 65.374 kg Weight 57.294 kg Physical Exam Narrative: Constitutional: Sedated and vented HEENT: Wet mucosa, no jvp, non icteric Lungs: Bilaterally clear without discernible wheeze, rales in all lung zones CVS: S1 S2, no murmurs Abdo: Soft, BS ok Ext 4: Minimal edema, peripheral perfusion with no cyanosis Neurological: Grossly non-focal Urinary Catheter Management: Salcedo: Cath Placed During This Visit: yes Reason for Continuing Indwelling Catheter: Accurate Measurement of Urinary Output in Critically Ill Patients Urinary Catheter Date of Insertion: 08/07/21 Urinary Catheter Time of Insertion: 15:33 Data : 08/13/21 07:40 08/13/21 07:40 Micro: Microbiology 08/07/21 14:15 Blood Culture - Final Blood NO GROWTH AFTER 5 DAYS 08/07/21 14:10 Blood Culture - Final Blood NO GROWTH AFTER 5 DAYS A&P Assessment and plan (1) Acute renal failure (ARF): Status: Acute Plan 1. Acute kidney injury Progressively oliguric acute kidney injury less likely ischemic ATN from the significant fluctuations in hemodynamics sustained on 08/08. IV contrast unlikely causative, however, may have contributed. Lengthy discussion with family at bedside today. It is very unclear as to the contribution of uremia to her cognition. The only way to know with any degree of certainty is a trial of hemodialysis which I did offer to them today. If there is no cognitive improvement after 3 sessions of hemodialysis then I would recommend terminating the therapy and transitioning to palliative. Daily renal panel Strict I's and O's Dose medication for GFR less than 15 2. Chemistry Minor non critical aberration will correct with HD 3. Gangrenous cholecystitis Status post lap hodan, postop day 5 Management per surgery Culture data remains negative Antibiotics per medical team 4. Vent dependent respiratory failure Currently on minimal sedation 5. S/p CVA Neuro input pending with ongoing discussion of goals of care trial of dialysis Thank you for consultation Osvaldo Epperson MD Nephrology [phone] Patient seen and examined via telemedicine, with the assistance of the bedside RN > 25 min spent in evaluation and mgmt of patient Attestations Medical Necessity Statement*: eval for RONALDO Coding Level of Care Code Acute Clinical Lab Specialist for [facility] Fwd Diagnoses Acute renal failure (ARF) N17.9
[2021-08-13 13:00] LABS: Glucose Point of Care 226 mg/dL (70-110)
[2021-08-13 17:21] LABS: Glucose Point of Care 217 mg/dL (70-110)
[2021-08-13] MEDS: chlorhexidine gluconate 0.12% Btl 473 mL 15 ML MUCOUS MEM (17:33)
--- NOTE | 2021-08-13 19:35 | CTR_ITS ---
PROCEDURE INFORMATION: Exam: CT Angiography Head With Contrast, Arteriography Exam date and time: 08/13/2021 7:37 PM Age: 86 years old Clinical indication: Other: Unresponsive; Additional info: Stroke TECHNIQUE: Imaging protocol: Computed tomography angiography of the head with contrast. Exam focused on the arteries. 3D rendering (Not supervised by radiologist): MIP and/or 3D reconstructed images were created by the technologist. Radiation optimization: All CT scans at this facility use at least one of these dose optimization techniques: automated exposure control; mA and/or kV adjustment per patient size (includes targeted exams where dose is matched to clinical indication); or iterative reconstruction. Contrast material: OMNIPAQUE 350; Contrast volume: 95 ml; Contrast route: INTRAVENOUS (IV); COMPARISON: CT head wo con* [id number] 08/10/2021 9:31 AM RADIATION DOSE METRICS: Total DLP (mGy-cm): 1878.83 FINDINGS: ANTERIOR CIRCULATION: Right internal carotid artery: Diffuse wall calcification and luminal narrowing most significant at the clinoid segment with moderate 2 severe stenosis. No occlusion. No aneurysm. Right middle cerebral artery: Unremarkable. No occlusion or significant stenosis. No aneurysm. Right anterior cerebral artery: Unremarkable. No occlusion or significant stenosis. No aneurysm. Left internal carotid artery: Diffuse wall calcification and luminal narrowing most significant at the clinoid segment with moderate to severe stenosis. No occlusion. No aneurysm. Left middle cerebral artery: Unremarkable. No occlusion or significant stenosis. No aneurysm. Left anterior cerebral artery: Unremarkable. No occlusion or significant stenosis. No aneurysm. POSTERIOR CIRCULATION: Right vertebral artery: Unremarkable. No occlusion or significant stenosis. No aneurysm. Left vertebral artery: Unremarkable. No occlusion or significant stenosis. No aneurysm. Basilar artery: Unremarkable. No occlusion or significant stenosis. No aneurysm. Right posterior cerebral artery: Unremarkable. No occlusion or significant stenosis. No aneurysm. Left posterior cerebral artery: Unremarkable. No occlusion or significant stenosis. No aneurysm. Brain: Redemonstrated infarct centered in the posterior limb of the right internal capsule. Moderate diffuse cerebral atrophy. No mass effect. Cerebral ventricles: No ventriculomegaly. Bones/joints: Unremarkable. No acute fracture. Soft tissues: Unremarkable. PROCEDURE INFORMATION: Exam: CT Angiography Neck With Contrast Exam date and time: 08/13/2021 7:37 PM Age: 86 years old Clinical indication: Other: Unresponsive; Additional info: Stroke TECHNIQUE: Imaging protocol: Computed tomography angiography of the neck with contrast. 3D rendering (Not supervised by radiologist): MIP and/or 3D reconstructed images were created by the technologist. Radiation optimization: All CT scans at this facility use at least one of these dose optimization techniques: automated exposure control; mA and/or kV adjustment per patient size (includes targeted exams where dose is matched to clinical indication); or iterative reconstruction. Contrast material: OMNIPAQUE 350; Contrast volume: 95 ml; Contrast route: INTRAVENOUS (IV); COMPARISON: CT head wo [facility]* [id number] 08/10/2021 9:31 AM RADIATION DOSE METRICS: Total DLP (mGy-cm): 1878.83 FINDINGS: Tubes, catheters and devices: Partially visualized endotracheal tube and right central line. Right common carotid artery: No stenosis. No dissection or occlusion. Right internal carotid artery: Mild stenosis at the origin of the right internal carotid artery. No dissection or occlusion. Right external carotid artery: No occlusion or stenosis of the origin. Left common carotid artery: No stenosis. No dissection or occlusion. Left internal carotid artery: No stenosis of the extracranial segment. No dissection or occlusion. Left external carotid artery: No occlusion or stenosis of the origin. Right vertebral artery: No stenosis. No dissection or occlusion. Left vertebral artery: No stenosis. No dissection or occlusion. Soft tissues: Normal. No significant soft tissue swelling. Bones/joints: No acute fracture. Pleural spaces: Bilateral moderate volume pleural effusions. CT/CT angio headneck* [id number] IMPRESSION: 1. Diffuse wall calcification and luminal narrowing of the internal carotid arteries, most significant at the clinoid segments with moderate to severe stenosis bilaterally. No large vessel occlusion. 2. Redemonstrated infarct centered in the posterior limb of the right internal capsule, no significant interval change. IMPRESSION: 1. Mild stenosis at the origin of the right internal carotid artery. No significant stenosis or occlusion. 2. Bilateral moderate volume pleural effusions. REFERENCES: NASCET CRITERIA. The degree of internal carotid artery stenosis is based on NASCET criteria. Normal is no stenosis. Mild is less than 50% stenosis. Moderate is 50-69% stenosis. Severe is 70% to 99% stenosis. Total occlusion is no detectable patent lumen.
[2021-08-13] MEDS: iohexol 350 mg/mL 100 mL Btl IV ×2 (19:37→20:00)
[2021-08-13] MEDS: atorvastatin 40 mg Tablet 80 MG PO (21:07)
[2021-08-13 23:27] LABS: Glucose Point of Care 138 mg/dL (70-110)
[2021-08-14] VITALS (93 sets, daily range): BP systolic 82–179; BP diastolic 49–86; PULSE 82–104; RESP 12–21; TEMP 36.5–37.4; O2SAT 93–100
[2021-08-14] MEDS: heparin 5,000 unit/mL INJ 1 mL 5000 UNIT SUBCUT ×2 (01:46→16:13)
[2021-08-14 05:21] LABS: Glucose Point of Care 173 mg/dL (70-110)
[2021-08-14] MEDS: insulin lispro 100 unit/1 mL SUBCUT ×3 (05:31→23:07)
[2021-08-14 05:33] LABS: Hematocrit 29.4 % (37.0-47.0); Hemoglobin 8.9 g/dL (11.5-15.3); Mean Corpuscular HGB Conc 30.3 g/dL (30.0-36.0); Mean Corpuscular Hemoglobin 30.8 pg (28.0-34.0); Mean Corpuscular Volume 101.7 fl (81-99); Mean Platelet Volume 10.6 fL (7.4-10.4); Platelet Count 291 10^3/cmm (130-400); Red Blood Count 2.89 10^6/uL (4.1-5.3); Red Cell Distribution Width 13.4 % (12.1-15.1); White Blood Count 13.4 10^3/uL (4.0-10.0)
[2021-08-14 05:53] LABS: Blood Urea Nitrogen 58 mg/dL (8-23); Calcium 8.1 mg/dL (8.5-10.5); Carbon Dioxide 17 mmol/L (22-29); Chloride 104 mmol/L (98-107); Glucose 179 mg/dL (65-115); Osmolality Calculated 307 mOsm/kg (285-295); Sodium 138 mmol/L (136-145)
[2021-08-14 05:55] LABS: Anion Gap 20.7 (5-19); Potassium 3.7 mmol/L (3.5-5.1)
[2021-08-14 06:00] LABS: Absolute Neutrophil 12.2 10^3/cmm (1.4-6.5); Absolute Segmented Neutrophil 11.4 10/cmm (1.6-7.1); Band Neutrophils Absolute 0.8 10^3/cmm (0.0-1.2); Eosinophils 0 %; Lymphocytes 5 %; Lymphocytes Absolute 0.7 10^3/cmm (1.2-3.4); Monocytes Absolute 0.4 10^3/cmm (0.1-0.6); Platelet Estimate Normal (Normal); Segmented Neutrophils 85 %; Total Cells Counted 100 (0-100)
[2021-08-14 06:01] LABS: Macrocytosis Trace; Poikilocytosis Trace
[2021-08-14 08:02] LABS: Glucose Point of Care 173 mg/dL (70-110)
[2021-08-14] MEDS: amlodipine 5 mg Tablet PO (08:43)
[2021-08-14] MEDS: folic acid 1 mg Tablet PO (08:43)
[2021-08-14] MEDS: clopidogrel 75 mg Tablet PO (08:43)
[2021-08-14] MEDS: aspirin 300 mg Supp PR (08:44)
[2021-08-14] MEDS: pantoprazole 40 mg SDV IVP ×2 (08:44→17:19)
--- NOTE | 2021-08-14 08:50 | PM.PN ---
Subjective Subjective: Patient seen this morning. 3000 cc removed by dialysis yesterday evening. CTA head and neck also done. Patient is still intubated. Hemodynamically stable. Absolute neutrophil count elevated, 6% bandemia. Patient still is unresponsive to any stimulation. Tube feeds to be restarted today. Vitals/I&O/Wt Last Vital Signs Temp 99.4 F 08/14/21 07:45 Pulse 82 08/14/21 08:48 Resp 18 08/14/21 08:48 BP 164/80 08/14/21 07:45 Pulse Ox 93 08/14/21 08:48 08/13/21 08/14/21 08/14/21 22:59 06:59 14:59 Intake Total 400 / 500 Output Total 350 / 350 1775 / 2125 Balance -350 / -250 -1375 / -1625 Weight last 48 hrs Weight 58.542 kg Weight 58.4 kg Weight 65.374 kg Physical Exam Narrative: General: Intubated and on mechanical ventilation, off sedation HEENT: Normocephalic, atraumatic, EOMI, breathing on the vent Cardio: Regular rate rhythm, normal S1-S2, systolic murmur present. Respiratory: Good bilateral air entry, no wheezes no rhonchi appreciated in anterior lung watson. There are bibasilar mild crackles at bases bilaterally. GI: Abdomen soft, nontender, nondistended, bowel sounds + Extremities: Pulses 2+, no edema, no cyanosis Neuro: Unable to assess cranial nerves.? No gag reflex today knee jerk reflex absent, Achilles reflex absent.? Does not wake up to sternal rub.? Does not withdraw to pain.? Pinpoint pupils bilaterally but do not respond to light.? Has strong right-sided gaze deviation.? No facial movement.? Very slight movement of the left with pain.? No movement on the right.? Left foot slightly removed today. There has been no change in neurological status from prior day. Urinary Catheter Management: Salcedo: Cath Placed During This Visit: yes Reason for Continuing Indwelling Catheter: Accurate Measurement of Urinary Output in Critically Ill Patients Urinary Catheter Date of Insertion: 08/07/21 Urinary Catheter Time of Insertion: 15:33 Data : 08/14/21 05:16 08/14/21 04:56 A&P Assessment and plan (1) Right middle cerebral artery stroke: Status: Acute (2) Brainstem stroke: Status: Acute (3) Comatose: Status: Acute (4) Acute renal failure (ARF): Status: Acute (5) Acute cholecystitis: Status: Acute (6) Altered mental status: Status: Acute Plan #Acute right cerebral hemisphere stroke, acute brainstem stroke #Unresponsive comatose state #Vent dependent respiratory failure #Sepsis secondary to gangrenous cholecystitis status post lap hodan 08/08 #Acute kidney injury, most likely oliguric ischemic ATN, #Type 2 diabetes mellitus #Acute metabolic encephalopathy, baseline dementia #Uncontrolled hypertension?resolved #Anemia?stable -Patient was diagnosed with a right cerebral hemispheric stroke 08/10/2021.? Also has a brainstem stroke evidenced on clinical neuro logical exam.? CTA head and neck done which does not show any change from prior CAT scan. No significant coronary artery disease. ? Continue aspirin per rectal, atorvastatin 80. Restart Plavix. Hemoglobin seems to be stable at this point. -Continue imipenem. Add vancomycin. There is a 6% bandemia today with elevated absolute neutrophil count. -Patient is off sedation.? On and off SBT trial.? Continue SBT trial daily.? -Nephrology following for RONALDO.? Had 1 dialysis yesterday. We will follow nephrology recommendations. Plan is for 3 dialysis sessions to see if there is any clinical improvement. -Will check MRSA nares, sputum gram stain culture, will check blood cultures again. - will restart imdur 30 daily. will hold of losartan. ? Continue tube feeds as per nutrition recommendations.? ?Hemoglobin is stable. FOBT has been ordered. -Neurology consult completed. Appreciate recommendations. Prognosis remains poor. Allow natural . Attestations Medical Necessity Statement*: Prognosis poor. Requires ICU level care. Critical Care Time: Critical Care Time (min): 15 Coding Level of Care Code Acute School Cafeteria Cook for [facility] Fwd Diagnoses Right middle cerebral artery stroke I63.511 Brainstem stroke I63.9 Comatose R40.20 Acute renal failure (ARF) N17.9 Acute cholecystitis K81.0 Altered mental status R41.82
--- NOTE | 2021-08-14 08:55 | XRR_ITS ---
PROCEDURE INFORMATION: Exam: XR Chest Exam date and time: 08/14/2021 9:01 AM Age: 86 years old Clinical indication: Cough and dyspnea; Patient HX: PT on vent; Additional info: R/O pneumonia TECHNIQUE: Imaging protocol: XR of the chest. Views: 1 view. COMPARISON: CR XR chest 1V portable [id number] 08/13/2021 11:52 AM FINDINGS: Tubes, catheters and devices: Endotracheal tube, feeding tube, central venous catheter again demonstrated. The endotracheal tube terminates 2.7 cm above the raffi. Lungs: Emphysematous change and interstitial prominence. Pleural spaces: Asymmetric left basilar airspace/pleural disease obscuring the left hemidiaphragm. Heart/Mediastinum: No cardiomegaly. Vasculature: Calcification of the thoracic aorta. Bones/joints: Osteopenia, compression fractures, degenerative change. When correlating with the previous study, no significant interval changes are present. XR/XR chest 1V portable [id number] IMPRESSION: Stable appearance of the chest, not significantly changed from 08/13/2021 .
[2021-08-14] MEDS: chlorhexidine gluconate 0.12% Btl 473 mL 15 ML MUCOUS MEM ×2 (09:11→17:19)
--- NOTE | 2021-08-14 09:43 | PC.PHAR ---
vancomycin pha 2 dose: Teleneph to call in today to eval patient, did not want to delay dosing, entered 1,000 mg one time and will leave consult in place until we know more.
--- NOTE | 2021-08-14 10:45 | PC.NUTR ---
When medically appropriate, recommend restarting TF of Glucerna 1.2 @ 15 mls/hr and increasing 10 mls/hr as tolerated until goal rate of 35 mls/hr is reached, with flushes 100 mls Q6H. Details in RD assessment.
--- NOTE | 2021-08-14 10:55 | P.PN_ITS ---
Subjective Subjective: Ms. Hernandez remains critically sick in the ICU. Still not recovering from a neurological perspective. Dialysis performed yesterday for the first time was performed without incident, she tolerated the therapy well from a hemodynamic perspective, however, it is yet to make any difference for neurological recovery. Medications: Reviewed: Yes Medication Review Details: Generic Name Dose Route Start Last Admin Trade Name Freq PRN Reason Stop Dose Admin Acetaminophen 650 mg 08/09/21 08:41 08/09/21 23:57 Acetaminophen 65 0 Mg Supp GA 650 mg Q6H PRN Administration FEVER Heparin Sodium (Po rcine) 5,000 unit 08/09/21 14:30 08/10/21 02:23 Heparin 5,000 Un it/Ml Inj 1 Ml SUBCUT 5,000 unit Q12H [place] Administration Lactated Ringer's 1,000 mls @ 100 m ls/hr 08/09/21 08:45 08/10/21 10:06 Lactated Ringers IV Not Given .Q10H [place] Piperacillin Sod/T azobactam 100 mls @ 25 mls/ hr 08/09/21 16:30 08/10/21 08:45 Sod 3.375 gm/ So dium Chloride IV Infused Q12H [place] Infusion Protocol Insulin Human Lisp ro 0 unit 08/08/21 11:30 08/10/21 06:38 Insulin Lispro 1 00 Unit/1 Ml SUBCUT Not Given Q6H [place] Protocol Pantoprazole Sodiu m 40 mg 08/08/21 09:00 08/10/21 08:38 Pantoprazole 40 Mg Sdv IVP 40 mg BID [place] Administration Vitals/I&O/Wt Last Vital Signs Temp 99.4 F 08/14/21 07:45 Pulse 82 08/14/21 08:48 Resp 18 08/14/21 08:48 BP 164/80 08/14/21 07:45 Pulse Ox 93 08/14/21 08:48 08/13/21 08/14/21 08/14/21 22:59 06:59 14:59 Intake Total 400 / 500 Output Total 350 / 350 1775 / 2125 Balance -350 / -250 -1375 / -1625 Weight last 48 hrs Weight 58.542 kg Weight 58.4 kg Weight 65.374 kg Physical Exam Narrative: Constitutional: Sedated and vented HEENT: Wet mucosa, no jvp, non icteric Lungs: Bilaterally clear without discernible wheeze, rales in all lung zones CVS: S1 S2, no murmurs Abdo: Soft, BS ok Ext 4: Minimal edema, peripheral perfusion with no cyanosis Neurological: Grossly non-focal Urinary Catheter Management: Salcedo: Cath Placed During This Visit: yes Reason for Continuing Indwelling Catheter: Accurate Measurement of Urinary Ou tput in Critically Ill Patients Urinary Catheter Date of Insertion: 08/07/21 Urinary Catheter Time of Insertion: 15:33 Data : 08/14/21 05:16 08/14/21 04:56 Micro: Microbiology 08/13/21 13:12 MRSA Culture - Final Nose 08/13/21 16:50 Gram Stain - Final Sputum - Endotracheal Tube Aspirate A&P Assessment and plan (1) Acute renal failure (ARF): Status: Acute Plan 1. Acute kidney injury Progressively oliguric acute kidney injury less likely ischemic ATN from the significant fluctuations in hemodynamics sustained on 08/08. IV contrast unlikely causative, however, may have contributed. Day 2/3 dialysis sessions Daily renal panel Strict I's and O's Dose medication for GFR less than 15 2. Chemistry Minor non critical aberration will correct with HD 3. Gangrenous cholecystitis Status post lap hodan, postop day 6 Management per surgery Culture data remains negative Antibiotics per medical team 4. Vent dependent respiratory failure Currently on minimal sedation 5. S/p CVA Neuro input pending with ongoing discussion of goals of care trial of dialysis If no recovery after 3 sessions would advise termination of further therapy and transition to hospice Thank you for consultation Osvaldo Epperson MD Nephrology [phone] Patient seen and examined via telemedicine, with the assistance of the bedside RN > 25 min spent in evaluation and mgmt of patient Attestations Medical Necessity Statement*: eval for renal failure Coding Level of Care Code Acute Testing And Regulating Technician for [facility] Fwd Diagnoses Acute renal failure (ARF) N17.9
[2021-08-14 11:12] LABS: Glucose Point of Care 177 mg/dL (70-110)
[2021-08-14] MEDS: vancomycin 1,000 MG in sodium chloride 0.9% 250 ML 250 MG IV ×2 (11:15→17:49)
--- NOTE | 2021-08-14 11:19 | PM.PN ---
Subjective Subjective: Patient has been afebrile, has developed leukocytosis with bandemia, tolerating tube feeds. Currently receiving dialysis. Patient has been passing breathing trials, does not follow commands Medications: Reviewed: Yes Vitals/I&O/Wt Last Vital Signs Temp 99.4 F 08/14/21 07:45 Pulse 82 08/14/21 08:48 Resp 12 08/14/21 10:54 BP 164/80 08/14/21 07:45 Pulse Ox 98 08/14/21 10:54 08/13/21 08/14/21 08/14/21 22:59 06:59 14:59 Intake Total 400 / 500 Output Total 350 / 2125 1775 / 2125 Balance -350 / -1625 -1375 / -1625 Weight last 48 hrs Weight 129 lb 1 oz Weight 128 lb 11.999 oz Weight 144 lb 2 oz Physical Exam Narrative: Abdomen: Soft, nontender, nonrigid, incisions healing well Urinary Catheter Management: Salcedo: Cath Placed During This Visit: yes Reason for Continuing Indwelling Catheter: Accurate Measurement of Urinary Output in Critically Ill Patients Urinary Catheter Date of Insertion: 08/07/21 Urinary Catheter Time of Insertion: 15:33 Data : 08/14/21 05:16 08/14/21 04:56 Micro: Microbiology 08/14/21 10:46 Blood Culture - Preliminary Blood SPECIMEN COLLECTED 08/14/21 10:42 Blood Culture - Preliminary Blood SPECIMEN COLLECTED 08/13/21 13:12 MRSA Culture - Final Nose 08/13/21 16:50 Gram Stain - Final Sputum - Endotracheal Tube Aspirate A&P Assessment and plan (1) Status post laparoscopic cholecystectomy: 85-year-old female status post laparoscopic cholecystectomy for acute gangrenous cholecystitis. Patient has had a CVA and has ARF Patient is due to have a CT chest abdomen pelvis due to bandemia Medical management as per hospitalist service Continue tube feeds at goal Status: Acute Attestations Medical Necessity Statement*: As per primary Coding Level of Care Code Acute Industrial Locomotive Operator for [facility] Fwd Diagnoses Status post laparoscopic cholecystectomy Z90.49
--- NOTE | 2021-08-14 12:23 | PC.SOCIAL ---
IMM Update pg 2 of IMM not updated @ this time, patient remains intubated and in critical condition.
--- NOTE | 2021-08-14 12:52 | CTR_ITS ---
PROCEDURE INFORMATION: Exam: CT Chest Without Contrast; Diagnostic Exam date and time: 08/15/2021 3:10 AM Age: 86 years old Clinical indication: Other: Bandemia. Leukocytosis. ; Prior surgery; Surgery date: 3-7 days post-operative; Surgery type: Gb. ; Patient HX: Patient seven days post op gb surgery. Patient in resp failure with intubation. In acute renal failure. Elevated wbc. Bandemia. Unresponsive. ; Additional info: Bandemia, R/O infection TECHNIQUE: Imaging protocol: Diagnostic computed tomography of the chest without contrast. Radiation optimization: All CT scans at this facility use at least one of these dose optimization techniques: automated exposure control; mA and/or kV adjustment per patient size (includes targeted exams where dose is matched to clinical indication); or iterative reconstruction. COMPARISON: 1. CT abdomen pelvis w con* [id number] 08/07/2021 4:05 PM 2. CR XR chest 1V portable [id number] 08/14/2021 9:01 AM RADIATION DOSE METRICS: Total DLP (mGy-cm): 764.21 FINDINGS: Tubes, catheters and devices: An endotracheal tube is placed with its tip approximately 2.3 cm from the raffi. An orogastric tube is placed with its tip in the proximal stomach. The proximal side port is within the distal esophagus. Lungs: There are calcifications of the tracheobronchial tree seen. Pleural spaces: There are bilateral pleural effusions. Heart: There are calcifications seen within the coronary arteries. Lymph nodes: Unremarkable. No enlarged lymph nodes. Vasculature: Calcifications are seen in the thoracic aorta. Bones/joints: There is mild anterior compression of the T12 superior endplate. Soft tissues: Unremarkable. PROCEDURE INFORMATION: Exam: CT Abdomen And Pelvis Without Contrast Exam date and time: 08/15/2021 3:10 AM Age: 86 years old Clinical indication: Other: Bandemia. Leukocytosis. ; Prior surgery; Surgery date: 3-7 days post-operative; Surgery type: Gb. ; Patient HX: Patient seven days post op gb surgery. Patient in resp failure with intubation. In acute renal failure. Elevated wbc. Bandemia. Unresponsive. ; Additional info: Bandemia, R/O infection TECHNIQUE: Imaging protocol: Computed tomography of the abdomen and pelvis without contrast. Radiation optimization: All CT scans at this facility use at least one of these dose optimization techniques: automated exposure control; mA and/or kV adjustment per patient size (includes targeted exams where dose is matched to clinical indication); or iterative reconstruction. COMPARISON: 1. CT abdomen pelvis w con* [id number] 08/07/2021 4:05 PM 2. CR XR chest 1V portable [id number] 08/14/2021 9:01 AM RADIATION DOSE METRICS: Total DLP (mGy-cm): 764.21 FINDINGS: Tubes, catheters and devices: Salcedo catheter is present. Liver: There is some fluid seen in the upper quadrants of the abdomen adjacent to the liver and spleen and within the pericolic gutters. Gallbladder and bile ducts: Status post cholecystectomy. There are hazy in strandy opacity seen in the gallbladder fossa and some mottled gas densities are present, findings that may represent postoperative inflammatory changes. Pancreas: Normal. No ductal dilation. Spleen: See Liver finding. Adrenal glands: Normal. No mass. Kidneys and ureters: There patchy areas of hypoperfusion seen within the kidneys bilaterally, right more prominent than left, findings that may represent bilateral pyelonephritis. Stomach and bowel: Unremarkable. No obstruction. No mucosal thickening. Appendix: No evidence of appendicitis. Intraperitoneal space: See Liver finding. Vasculature: Unremarkable. No abdominal aortic aneurysm. Lymph nodes: Unremarkable. No enlarged lymph nodes. Urinary bladder: The bladder appears decompressed. Some gas densities are seen intraluminally within the bladder secondary to catheterization. Reproductive: Status post hysterectomy. Bones/joints: Unremarkable. No acute fracture. Soft tissues: Unremarkable. CT/CT chest abd pel wo con IMPRESSION: 1. There are moderate bilateral pleural effusions. 2. Minimal strandy and patchy opacities superimposed over the pleural effusions likely representing atelectasis. IMPRESSION: 1. Patchy areas of hypoperfusion are seen within the kidneys bilaterally, findings that suggest bilateral pyelonephritis. 2. Strandy opacities and some gas densities are seen in the gallbladder fossa likely representing postoperative inflammatory changes. 3. Fluid attenuation is seen adjacent to the liver and spleen and within the pericolic gutters bilaterally
[2021-08-14 14:51] LABS: Hepatitis B Surface AB 62.1 (11.5-1000); Hepatitis B Surface Antigen Non-Reactive (Nonreactive)
[2021-08-14] MEDS: heparin, porcine 1,000 unit/mL INJ 10 mL HE (14:59)
[2021-08-14 16:39] LABS: ABG PCO2 29.8 mmHg (35-45); ABG PH Result 7.56 (7.35-7.45); Alveolar-Arterial Oxygen Gradi 5.1 mmHg (5-10); Arterial Blood Gas Hematocrit 30.3 % (37-47); Base Excess ABG 4.9 mmol/L (-2.0-2.0); Blood Gas Allen Test Pos; Blood Gas Sample Site Radial, left; Blood Gas Sample Type Arterial; Carboxyhemoglobin 1.1 %THgb (0.4-20.1); HCO3 ABG 26.9 mmol/L (22-26); HGB O2 Sat 93.7 % (95-100); Ionized Calcium Level - ABG 1.1 mmol/L (1.1-1.4); Methemoglobin 1.1 % (0.4-1.5); Oxygen Device VENT; Oxygen Saturation ABG 95.9; PO2 ABG 72.6 mmHg (80.0-100.0); Potassium Level - ABG 3.1 mmol/L (3.5-5.0); Total Hemoglobin 9.9 g/dL (12-16)
[2021-08-14 16:43] LABS: Glucose Point of Care 122 mg/dL (70-110)
--- NOTE | 2021-08-14 19:08 | P.PN_ITS ---
Subjective Subjective: She has been dialyzed twice and so far there has been no improvement in her mental status which remains profoundly obtunded with no sign of voluntary response. Vitals/I&O/Wt Last Vital Signs Temp 97.7 F 08/14/21 18:49 Pulse 92 08/14/21 18:49 Resp 17 08/14/21 18:49 BP 98/54 08/14/21 18:49 Pulse Ox 99 08/14/21 18:35 08/14/21 08/14/21 08/14/21 06:59 14:59 22:59 Intake Total 400 / 500 350.000 / 350.000 300 / 650.000 Output Total 1775 / 2125 1785 / 1785 Balance -1375 / -1625 350.000 / 350.000 -1485 / -1135.000 Weight last 48 hrs Weight 116 lb 13.52 oz Weight 129 lb 1 oz Weight 128 lb 11.999 oz Weight 144 lb 2 oz Physical Exam Narrative: Her exam is unchanged. She has right gaze preference but positive doll's eyes. She responds to brow pressure. She responds to stimuli by flexing the left shoulder and frowning. No voluntary response. Urinary Catheter Management: Salcedo: Cath Placed During This Visit: yes Reason for Continuing Indwelling Catheter: Accurate Measurement of Urinary Output in Critically Ill Patients Urinary Catheter Date of Insertion: 08/07/21 Urinary Catheter Time of Insertion: 15:33 Data : 08/14/21 05:16 08/14/21 04:56 Micro: Microbiology 08/13/21 16:50 Gram Stain - Final Sputum - Endotracheal Tube Aspirate Sputum Culture - Preliminary 08/14/21 10:46 Blood Culture - Preliminary Blood SPECIMEN COLLECTED 08/14/21 10:42 Blood Culture - Preliminary Blood SPECIMEN COLLECTED 08/13/21 13:12 MRSA Culture - Final Nose A&P Assessment and plan (1) Brainstem stroke: She has had some type of devastating neurologic event and CAT scan does not give us a clue. This may be a brainstem stroke. There was no period of hypoxia or hypotension and so presumably this is an ischemic event. I was hopeful that a component of metabolic encephalopathy was part of this and that dialysis would help. So far she has not improved. We have agreed to 1 more episode of dialysis and then terminal comfort care. 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 End- of-life decision-making. Coding Level of Care Code Acute Licensed Aircraft Maintenance Engineer for [facility] Fwd Diagnoses Brainstem stroke I63.9 Right middle cerebral artery stroke I63.511 Acute renal failure (ARF) N17.9 Sepsis A41.9 Acute cholecystitis K81.0
[2021-08-14 20:38] LABS: Glucose Point of Care 140 mg/dL (70-110)
[2021-08-14] MEDS: insulin glargine 100 units/1 mL 5 UNIT SUBCUT (20:49)
[2021-08-14] MEDS: atorvastatin 40 mg Tablet 80 MG PO (20:49)
--- NOTE | 2021-08-14 22:01 | PC.NURSE ---
MTS notified of patient condition. Spoke with Esperanza Rubio [phone]. [facility] will come tomorrow to go through patient chart. Request to notify them if there is a change in condition or plan to withdrawal from care within three hours. supervisor opening and picking notified of MTS notification and plan.
[2021-08-14 23:11] LABS: Glucose Point of Care 150 mg/dL (70-110)
[2021-08-15] VITALS (82 sets, daily range): BP systolic 107–167; BP diastolic 48–85; PULSE 80–105; RESP 15–22; TEMP 36.8–38.1; O2SAT 87–100
[2021-08-15] MEDS: heparin 5,000 unit/mL INJ 1 mL 5000 UNIT SUBCUT ×2 (01:47→15:15)
[2021-08-15 04:07] LABS: Anion Gap 18.5 (5-19); Blood Urea Nitrogen 26 mg/dL (8-23); Calcium 7.8 mg/dL (8.5-10.5); Carbon Dioxide 22 mmol/L (22-29); Chloride 102 mmol/L (98-107); Glucose 149 mg/dL (65-115); Magnesium 1.8 mg/dL (1.7-2.3); Osmolality Calculated 296 mOsm/kg (285-295); Potassium 3.5 mmol/L (3.5-5.1); Sodium 139 mmol/L (136-145)
[2021-08-15 04:21] LABS: Hematocrit 24.7 % (37.0-47.0); Mean Corpuscular HGB Conc 32.4 g/dL (30.0-36.0); Mean Corpuscular Hemoglobin 31.4 pg (28.0-34.0); Mean Corpuscular Volume 96.9 fl (81-99); Mean Platelet Volume 10.5 fL (7.4-10.4); Platelet Count 346 10^3/cmm (130-400); Red Blood Count 2.55 10^6/uL (4.1-5.3); Red Cell Distribution Width 13.4 % (12.1-15.1); White Blood Count 15.7 10^3/uL (4.0-10.0)
[2021-08-15 04:30] LABS: Vancomycin Random 20.1 ug/mL (20.0-40.0)
[2021-08-15] MEDS: insulin lispro 100 unit/1 mL SUBCUT ×3 (05:07→17:44)
[2021-08-15] MEDS: acetaminophen 500 mg Tablet PO (05:12)
[2021-08-15 05:14] LABS: Absolute Segmented Neutrophil 11.5 10/cmm (1.6-7.1); Band Neutrophils Absolute 1.6 10^3/cmm (0.0-1.2); Eosinophils 0 %; Lymphocytes 4 %; Lymphocytes Absolute 0.8 10^3/cmm (1.2-3.4); Monocytes Absolute 0.6 10^3/cmm (0.1-0.6); Platelet Estimate Normal (Normal); Segmented Neutrophils 73 %; Total Cells Counted 100 (0-100)
[2021-08-15 06:12] LABS: Glucose Point of Care 182 mg/dL (70-110)
--- NOTE | 2021-08-15 07:49 | P.PN_ITS ---
Subjective Subjective: Seen this morning. No acute events overnight. Patient has been febrile however. This morning 100.5. 10% bandemia present, neutrophil count rising. WBC count rising. Creatinine has improved to 1.7. Patient still remains in a comatose state. No purposeful movements. CT chest abdomen pelvis done yesterday showed patchy areas of hypoperfusion in kidneys bilaterally suggesting bilateral pyelonephritis. Strandy opacities and some gas densities are seen in gallbladder fossa likely representing postoperative inflammatory changes. Fluid attenuation is seen adjacent to the liver and spleen within the pericolic gutters bilaterally. Urine culture results are pending. Blood cultures are negative to date. Vitals/I&O/Wt Last Vital Signs Temp 100.5 F H 08/15/21 05:00 Pulse 95 08/15/21 07:25 Resp 17 08/15/21 07:29 BP 142/62 08/15/21 05:00 Pulse Ox 95 08/15/21 07:29 08/14/21 08/15/21 08/15/21 22:59 06:59 14:59 Intake Total 650 / 1000.000 Output Total 1785 / 1785 80 / 1865 Balance -1135 / -785.000 -80 / -865.000 Weight last 48 hrs Weight 53.325 kg Weight 53 kg Weight 58.542 kg Weight 58.4 kg Physical Exam Narrative: General: Intubated and on mechanical ventilation, off sedation HEENT: Normocephalic, atraumatic, EOMI, breathing on the vent Cardio: Regular rate rhythm, normal S1-S2, systolic murmur present. Respiratory: Good bilateral air entry, no wheezes no rhonchi appreciated GI: Abdomen soft, nontender, nondistended, bowel sounds + Extremities: Pulses 2+, no edema, no cyanosis Neuro: Unable to assess cranial nerves. Areflexia throughout. does not wake up to sternal rub.? Does not withdraw to pain.? Pinpoint pupils bilaterally but do not respond to light.? Has strong right-sided gaze deviation.? No facial movement.? Doll's eye sign positive. No voluntary response. Urinary Catheter Management: Salcedo: Cath Placed During This Visit: yes Reason for Continuing Indwelling Catheter: Accurate Measurement of Urinary Output in Critically Ill Patients Urinary Catheter Date of Insertion: 08/07/21 Urinary Catheter Time of Insertion: 15:33 Data : 08/15/21 03:27 08/15/21 03:27 Micro: Microbiology 08/13/21 16:50 Gram Stain - Final Sputum - Endotracheal Tube Aspirate Sputum Culture - Preliminary 08/14/21 10:46 Blood Culture - Preliminary Blood SPECIMEN COLLECTED 08/14/21 10:42 Blood Culture - Preliminary Blood SPECIMEN COLLECTED 08/13/21 13:12 MRSA Culture - Final Nose A&P Assessment and plan (1) Comatose: Status: Acute (2) Right middle cerebral artery stroke: Status: Acute (3) Brainstem stroke: Status: Acute (4) Acute renal failure (ARF): Status: Acute (5) Status post laparoscopic cholecystectomy: Status: Acute (6) Sepsis: Status: Acute (7) Acute cholecystitis: Status: Acute (8) Fever: Status: Acute Plan #Acute right cerebral hemisphere stroke, acute brainstem stroke #Unresponsive comatose state #Vent dependent respiratory failure #Sepsis secondary to gangrenous cholecystitis status post lap hodan 08/08 #Acute kidney injury, most likely oliguric ischemic ATN, #Type 2 diabetes mellitus #Acute metabolic encephalopathy, baseline dementia #Uncontrolled hypertension?resolved #Anemia?stable # -Patient was diagnosed with a right cerebral hemispheric stroke 08/10/2021.? Also has a brainstem stroke evidenced on clinical neuro logical exam.? CTA head and neck done which does not show any change from prior CAT scan.? No significant coronary artery disease. ? Continue aspirin per rectal, atorvastatin 80.? Continue plavix.? Hemoglobin seems to be stable at this point. -Continue imipenem & vancomycin.? There is a 10% bandemia today with elevated absolute neutrophil count. WBC count also rising. Infection source possibly from bilateral pyelonephritis versus infected fluid in pericolic gutters bilaterally. -Patient is off sedation.? On and off SBT trial.? Continue SBT trial daily.? -Nephrology following for RONALDO.? Had 2 dialysis so far.? We will follow nephrology recommendations.? Plan is for 3 dialysis sessions to see if there is any clinical improvement. -MRSA nares, sputum gram stain culture, blood cultures negative to date so far. ? Urine culture pending.. - Continue imdur 30 daily. will hold of losartan. ? Continue tube feeds as per nutrition recommendations.? ?Hemoglobin is stable.? FOBT has been ordered. -Neurology consult completed.? Appreciate recommendations. Neurology resaw patient yesterday. Family and neurology has agreed to 1 more episode of dialysis and then terminal comfort care. Prognosis remains very poor. Allow natural . Attestations Medical Necessity Statement*: Requires ICU level care Coding Level of Care Code Acute Member Service Specialist for g Fwd Diagnoses Comatose R40.20 Right middle cerebral artery stroke I63.511 Brainstem stroke I63.9 Acute renal failure (ARF) N17.9 Status post laparoscopic cholecystectomy Z90.49 Sepsis A41.9 Acute cholecystitis K81.0 Fever R50.9
--- NOTE | 2021-08-15 09:31 | PC.CHAP ---
Pastoral Care Encounter/Spiritual Assessment Type of Contact [] Declined executive casino host visit [] Patient/Family/Request visit [] Outpatient visit [] Follow-up visit [] Physician referral [] Code/Alert [x] Routine visit [] Staff referral [] Actively dying [x] Patient sleeping [] Family support [] [] Out of room [] Palliative care [] [] Receiving care in room [] Pre-surgical visit [] Trauma [] Long length of stay [x] ICU visit [x] Other: vent Relational/Emotional Strength [] Patient feels connected with others/family/visitors/staff [] Distress [] Loneliness/isolation [] Abandonment Spirituality of Patient [] Person of Kelsea [] Attends Amish of their Kelsea [] Believes in Prayer [] Reads Bible or Alevism materials [] There are Spiritual issues to be addressed Professor Of Forest Planning Interventions [x] Prayer [] Active listening [] Non-anxious presence [] Spiritual/emotional support [] Crisis/trauma care [] Spiritual counseling [] Bereavement support [] Provided bereavement packet [] Provided Bible/devotional materials [] Provided toy/stuffed animal, coloring book to patient or family member [] Provided Communion [] Anointing/[place] [] Salvation [x] Completed spiritual assessment [] Other: Impact on Illness or Injury [] Angry [] Fearful [] Anxious [] Often cries [] Exhaustion [] Unable to work [] Unable to attend confucianism [] Unable to walk/stand [] Unable to read [] Unable to drive [] Unable to eat/drink [] Unable to sleep [] Unable to be with family [] Patient intubated [] Other: Summary Time spent with patient
[2021-08-15] MEDS: aspirin 300 mg Supp PR (09:38)
[2021-08-15] MEDS: pantoprazole 40 mg SDV IVP ×2 (09:59→17:24)
[2021-08-15] MEDS: folic acid 1 mg Tablet PO (09:59)
[2021-08-15] MEDS: clopidogrel 75 mg Tablet PO (09:59)
[2021-08-15] MEDS: chlorhexidine gluconate 0.12% Btl 473 mL 15 ML MUCOUS MEM ×2 (10:00→17:39)
--- NOTE | 2021-08-15 10:19 | PM.PN ---
Subjective Subjective: Ms Hernandez remains critically sick in the intensive care unit. Currently ventilated with FiO2 21% and PEEP of 5. Not requiring any vasopressor agents. Still not waking up after 2 sessions of dialysis. Medications: Reviewed: Yes Medication Review Details: Generic Name Dose Route Start Last Admin Trade Name Freq PRN Reason Stop Dose Admin Acetaminophen 650 mg 08/09/21 08:41 08/09/21 23:57 Acetaminophen 65 0 Mg Supp FL 650 mg Q6H PRN Administration FEVER Heparin Sodium (Po rcine) 5,000 unit 08/09/21 14:30 08/10/21 02:23 Heparin 5,000 Un it/Ml Inj 1 Ml SUBCUT 5,000 unit Q12H [place] Administration Lactated Ringer's 1,000 mls @ 100 m ls/hr 08/09/21 08:45 08/10/21 10:06 Lactated Ringers IV Not Given .Q10H [facility] Piperacillin Sod/T azobactam 100 mls @ 25 mls/ hr 08/09/21 16:30 08/10/21 08:45 Sod 3.375 gm/ So dium Chloride IV Infused Q12H [facility] Infusion Protocol Insulin Human Lisp ro 0 unit 08/08/21 11:30 08/10/21 06:38 Insulin Lispro 1 00 Unit/1 Ml SUBCUT Not Given Q6H [facility] Protocol Pantoprazole Sodiu m 40 mg 08/08/21 09:00 08/10/21 08:38 Pantoprazole 40 Mg Sdv IVP 40 mg BID [place] Administration Vitals/I&O/Wt Last Vital Signs Temp 100.5 F H 08/15/21 05:00 Pulse 95 08/15/21 07:25 Resp 16 08/15/21 09:24 BP 142/62 08/15/21 05:00 Pulse Ox 95 08/15/21 09:24 08/14/21 08/15/21 08/15/21 22:59 06:59 14:59 Intake Total 650 / 1000.000 Output Total 1785 / 1785 80 / 1865 Balance -1135 / -785.000 -80 / -865.000 Weight last 48 hrs Weight 53.325 kg Weight 53 kg Weight 58.542 kg Weight 58.4 kg Physical Exam Narrative: Constitutional: Sedated and vented HEENT: Wet mucosa, no jvp, non icteric Lungs: Bilaterally clear without discernible wheeze, rales in all lung zones CVS: S1 S2, no murmurs Abdo: Soft, BS ok Ext 4: Minimal edema, peripheral perfusion with no cyanosis Neurological: Grossly non-focal Urinary Catheter Management: Salcedo: Cath Placed During This Visit: yes Reason for Continuing Indwelling Catheter: Accurate Measurement of Urinary Output in Critically Ill Patients Urinary Catheter Date of Insertion: 08/07/21 Urinary Catheter Time of Insertion: 15:33 Data : 08/15/21 03:27 08/15/21 03:27 Micro: Microbiology 08/13/21 16:50 Gram Stain - Final Sputum - Endotracheal Tube Aspirate Sputum Culture - Preliminary 08/14/21 10:46 Blood Culture - Preliminary Blood SPECIMEN COLLECTED 08/14/21 10:42 Blood Culture - Preliminary Blood SPECIMEN COLLECTED 08/13/21 13:12 MRSA Culture - Final Nose A&P Assessment and plan (1) Acute renal failure (ARF): Status: Acute Plan 1. Acute kidney injury Progressively oliguric acute kidney injury less likely ischemic ATN from the significant fluctuations in hemodynamics sustained on 08/08. IV contrast unlikely causative, however, may have contributed. Day 3/3 dialysis sessions today Daily renal panel Strict I's and O's Dose medication for GFR less than 15 2. Chemistry well balanced 3. Gangrenous cholecystitis Status post lap hodan, postop day 7 Management per surgery Culture data remains negative Antibiotics per medical team 4. Vent dependent respiratory failure Currently on minimal sedation 5. S/p CVA Neuro input pending with ongoing discussion of goals of care trial of dialysis If no recovery after 3 sessions would advise termination of further therapy and transition to hospice Thank you for consultation Osvaldo Epperson MD Nephrology [phone] Patient seen and examined via telemedicine, with the assistance of the bedside RN > 25 min spent in evaluation and mgmt of patient Attestations Medical Necessity Statement*: eval for renal failure Coding Level of Care Code Acute Rim Turning Machine Operator for [facility] Fwd Diagnoses Acute renal failure (ARF) N17.9
[2021-08-15] MEDS: sodium chloride 0.9% 1,000 ML 1 ML IV (11:10)
[2021-08-15 12:38] LABS: Glucose Point of Care 160 mg/dL (70-110)
--- NOTE | 2021-08-15 14:58 | PC.NURSE ---
Dialysis competed for patient. Uneventful. goal of 1 liter was removed.
[2021-08-15] MEDS: vancomycin 500 MG in sodium chloride 0.9% (plus) 100 ML 200 MG IV (15:10)
[2021-08-15 15:45] LABS: Bacillus cereus group Not Detected (NOT DETECT); Bacillus subtillis group Not Detected (NOT DETECT); Corynebacterium Not Detected (NOT DETECT); Cutibacterium acnes (P.acnes) Not Detected (NOT DETECT); Enterococcus Not Detected (NOT DETECT); Enterococcus faecalis Not Detected (NOT DETECT); Enterococcus faecium Not Detected (NOT DETECT); Lactobacillus species Not Detected (NOT DETECT); Listeria Not Detected (NOT DETECT); Listeria monocytogenes Not Detected (NOT DETECT); Micrococcus Not Detected (NOT DETECT); Pan Candida Not Detected (NOT DETECT); Pan Gram-Negative Not Detected (NOT DETECT); Staphylococcus epidermidis Detected (NOT DETECT); Staphylococcus lugdunensis Not Detected (NOT DETECT); Staphylococcus species Detected (NOT DETECT); Streptococcus agalactiae Not Detected (NOT DETECT); Streptococcus anginosus group Not Detected (NOT DETECT); Streptococcus pneumoniae Not Detected (NOT DETECT); Streptococcus pyogenes Not Detected (NOT DETECT); Streptococcus species Not Detected (NOT DETECT); mecA Detected (NOT DETECT); mecC Not Detected (NOT DETECT)
[2021-08-15 17:46] LABS: Glucose Point of Care 183 mg/dL (70-110)
--- NOTE | 2021-08-15 18:22 | PC.NURSE ---
SHift Summary: Uneventful shift. Patient rested in bed throughout the shift. Turned at least every 2 hours. total urine output for shift is 50mL. 1000mL removed during dialysis. Patient's mental status is unchanged. Patient continues to be unresponsive to painful stimuli. Dr Amaral would like to speak to family at bedside should they come in to visit.
[2021-08-15] MEDS: atorvastatin 40 mg Tablet 80 MG PO (20:35)
[2021-08-15] MEDS: insulin glargine 100 units/1 mL 5 UNIT SUBCUT (20:36)
[2021-08-16] VITALS (30 sets, daily range): BP systolic 126–182; BP diastolic 57–96; PULSE 70–103; RESP 16–17; TEMP 36.2–37.1; O2SAT 95–99; BMI 18.3
[2021-08-16 00:52] LABS: Glucose Point of Care 221 mg/dL (70-110)
[2021-08-16] MEDS: insulin lispro 100 unit/1 mL SUBCUT ×2 (00:55→06:19)
[2021-08-16 06:18] LABS: Glucose Point of Care 238 mg/dL (70-110)
[2021-08-16] MEDS: heparin 5,000 unit/mL INJ 1 mL 5000 UNIT SUBCUT (06:18)
--- NOTE | 2021-08-16 07:57 | P.PN_ITS ---
Subjective Subjective: Seen this morning. No change in neurological status. I called Mr. See yesterday to let them know about patient's status that there has been no improvement despite dialysis. I also let them know regarding possible pyelonephritis and bacteremia. He said he will be going to discussed with pat daniellant and possibly to come to the hospital or give us a call back. No other acute events overnight. Vitals/I&O/Wt Last Vital Signs Temp 98.4 F 08/16/21 06:00 Pulse 91 08/16/21 07:00 Resp 17 08/16/21 06:00 BP 165/70 08/16/21 07:00 Pulse Ox 98 08/16/21 07:00 08/15/21 08/16/21 08/16/21 22:59 06:59 14:59 Intake Total 884 / 984.017 Output Total 1350 / 1350 Balance -466 / -365.983 Weight last 48 hrs Weight 51.71 kg Weight 53 kg Weight 53.325 kg Weight 53 kg Physical Exam Narrative: General: Intubated and on mechanical ventilation, off sedation HEENT: Normocephalic, atraumatic, breathing on the vent Cardio: Regular rate rhythm, normal S1-S2, systolic murmur present. Respiratory: Fair bilateral air entry, no wheezes no rhonchi appreciated GI: Abdomen soft, bowel sounds + Extremities: no edema, no cyanosis Neuro: Unable to assess cranial nerves.? Areflexia throughout.? does not wake up to sternal rub.? Does not withdraw to pain.? Pinpoint pupils bilaterally but do not respond to light.? Has strong right-sided gaze deviation.? No facial mo vement.? Doll's eye sign positive.? No voluntary response. NO CHANGE IN NEUROLOGICAL STATUS Urinary Catheter Management: Salcedo: Cath Placed During This Visit: yes Reason for Continuing Indwelling Catheter: Accurate Measurement of Urinary Output in Critically Ill Patients Urinary Catheter Date of Insertion: 08/07/21 Urinary Catheter Time of Insertion: 15:33 Data : 08/15/21 03:27 08/15/21 03:27 Micro: Microbiology 08/14/21 10:46 Blood Culture - Preliminary Blood Staphylococcus epidermidis 08/13/21 16:50 Gram Stain - Final Sputum - Endotracheal Tube Aspirate Sputum Culture - Preliminary Yeast 08/14/21 10:42 Blood Culture - Preliminary Blood NEGATIVE TO DATE 08/14/21 15:00 MRSA Culture - Final Nose A&P Assessment and plan Plan #Acute right cerebral hemisphere stroke, acute brainstem stroke #Unresponsive comatose state #Vent dependent respiratory failure #Sepsis secondary to gangrenous cholecystitis status post lap hodan 08/08 #Acute kidney injury, most likely oliguric ischemic ATN, #Type 2 diabetes mellitus #Acute metabolic encephalopathy, baseline dementia #Uncontrolled hypertension?resolved #Anemia?stable #Bilateral pyelonephritis #Possibly infected fluid in both pericolic gutters #Positive blood culture, organism speciation pending -Patient was diagnosed with a right cerebral hemispheric stroke 08/10/2021.? Also has a brainstem stroke evidenced on clinical neuro logical exam.? CTA head and neck done which does not show any change from prior CAT scan.? No significant coronary artery disease. ? Continue aspirin per rectal, atorvastatin 80.? Continue plavix.? Hemoglobin seems to be stable at this point. -Continue imipenem & vancomycin.? Infection source possibly from bilateral pyelonephritis versus infected fluid in pericolic gutters bilaterally. -Patient is off sedation.? On and off SBT trial.? Continue SBT trial daily.? -Nephrology following for RONALDO.? Completed 3 dialysis sessions. No neurological improvement. -MRSA nares, sputum gram stain culture, blood cultures negative to date so far. ? Urine culture pending.. ? Continue tube feeds as per nutrition recommendations.? ?Hemoglobin is stable.? FOBT has been ordered. -Neurology consult completed.? Appreciate recommendations.? Neurology has recommended terminal comfort care. I have discussed all of the above with patient's next of kin, Mr. See yesterday. Family will possibly be coming in today. Prognosis remains very poor. Allow natural . Attestations Medical Necessity Statement*: intubated. Coding Level of Care Code Acute Multi Craft Maintenance Technician for Lucian [facility]wing
--- NOTE | 2021-08-16 08:39 | P.PN_ITS ---
Subjective Subjective: Slightly improved third session of dialysis performed yesterday without incident. No improvement to her cognition. Remains critically sick in the ICU on the ventilator. Parameters reviewed. Medications: Reviewed: Yes Medication Review Details: Generic Name Dose Route Start Last Admin Trade Name Freq PRN Reason Stop Dose Admin Acetaminophen 650 mg 08/09/21 08:41 08/09/21 23:57 Acetaminophen 65 0 Mg Supp WA 650 mg Q6H PRN Administration FEVER Heparin Sodium (Po rcine) 5,000 unit 08/09/21 14:30 08/10/21 02:23 Heparin 5,000 Un it/Ml Inj 1 Ml SUBCUT 5,000 unit Q12H [place] Administration Lactated Ringer's 1,000 mls @ 100 m ls/hr 08/09/21 08:45 08/10/21 10:06 Lactated Ringers IV Not Given .Q10H [place] Piperacillin Sod/T azobactam 100 mls @ 25 mls/ hr 08/09/21 16:30 08/10/21 08:45 Sod 3.375 gm/ So dium Chloride IV Infused Q12H [place] Infusion Protocol Insulin Human Lisp ro 0 unit 08/08/21 11:30 08/10/21 06:38 Insulin Lispro 1 00 Unit/1 Ml SUBCUT Not Given Q6H [place] Protocol Pantoprazole Sodiu m 40 mg 08/08/21 09:00 08/10/21 08:38 Pantoprazole 40 Mg Sdv IVP 40 mg BID [place] Administration Vitals/I&O/Wt Last Vital Signs Temp 98.4 F 08/16/21 06:00 Pulse 90 08/16/21 08:00 Resp 17 08/16/21 08:09 BP 165/70 08/16/21 07:00 Pulse Ox 99 08/16/21 08:09 08/15/21 08/16/21 08/16/21 22:59 06:59 14:59 Intake Total 884 / 984.017 Output Total 1350 / 1350 Balance -466 / -365.983 Weight last 48 hrs Weight 51.71 kg Weight 53 kg Weight 53.325 kg Weight 53 kg Physical Exam Narrative: Constitutional: Sedated and vented HEENT: Wet mucosa, no jvp, non icteric Lungs: Bilaterally clear without discernible wheeze, rales in all lung zones CVS: S1 S2, no murmurs Abdo: Soft, BS ok Ext 4: Minimal edema, peripheral perfusion with no cyanosis Neurological: Grossly non-focal Urinary Catheter Management: Salcedo: Cath Placed During This Visit: yes Reason for Continuing Indwelling Catheter: Accurate Measurement of Urinary Output in Critically Ill Patients Urinary Catheter Date of Insertion: 08/07/21 Urinary Catheter Time of Insertion: 15:33 Data : 08/15/21 03:27 08/15/21 03:27 Micro: Microbiology 08/14/21 10:46 Blood Culture - Preliminary Blood Staphylococcus epidermidis 08/13/21 16:50 Gram Stain - Final Sputum - Endotracheal Tube Aspirate Sputum Culture - Preliminary Yeast 08/14/21 10:42 Blood Culture - Preliminary Blood NEGATIVE TO DATE 08/14/21 15:00 MRSA Culture - Final Nose A&P Assessment and plan (1) Acute renal failure (ARF): Status: Acute Plan 1. Acute kidney injury Progressively oliguric acute kidney injury less likely ischemic ATN from the significant fluctuations in hemodynamics sustained on 08/08. IV contrast unlikely causative, however, may have contributed. Dialysis did not improve cognition. No further treatments Daily renal panel Strict I's and O's Dose medication for GFR less than 15 2. Chemistry well balanced 3. Gangrenous cholecystitis Status post lap hodan, postop day 8 Management per surgery Antibiotics per medical team 4. Vent dependent respiratory failure Currently on minimal sedation 5. S/p CVA Neuro input pending with ongoing discussion of goals of care trial of dialysis unsuccessful but expected Rec transition to comfort care Thank you for consultation Osvaldo Epperson MD Nephrology [phone] Patient seen and examined via telemedicine, with the assistance of the bedside RN > 25 min spent in evaluation and mgmt of patient Attestations Medical Necessity Statement*: eval for RONALDO Coding Level of Care Code Acute Discovery Manager for Chg Fwd Diagnoses Acute renal failure (ARF) N17.9
[2021-08-16] MEDS: isosorbide mononitrate ER 30 mg Tablet PO (08:48)
[2021-08-16] MEDS: clopidogrel 75 mg Tablet PO (08:48)
[2021-08-16] MEDS: aspirin 300 mg Supp PR (08:48)
[2021-08-16] MEDS: folic acid 1 mg Tablet PO (08:48)
[2021-08-16] MEDS: chlorhexidine gluconate 0.12% Btl 473 mL 15 ML MUCOUS MEM (08:48)
[2021-08-16] MEDS: pantoprazole 40 mg SDV IVP (08:49)
[2021-08-16 09:46] LABS: Hematocrit 26.5 % (37.0-47.0); Hemoglobin 8.2 g/dL (11.5-15.3); Mean Corpuscular HGB Conc 30.9 g/dL (30.0-36.0); Mean Corpuscular Hemoglobin 30.9 pg (28.0-34.0); Mean Platelet Volume 10.2 fL (7.4-10.4); Platelet Count 401 10^3/cmm (130-400); Red Blood Count 2.65 10^6/uL (4.1-5.3); Red Cell Distribution Width 13.3 % (12.1-15.1); White Blood Count 14.2 10^3/uL (4.0-10.0)
[2021-08-16 10:02] LABS: Alanine Aminotransferase 10 U/L (0-33); Albumin Level 1.9 g/dL (3.5-5.2); Alkaline Phosphatase 68 IU/L (35-105); Anion Gap 13.7 (5-19); Aspartate Amino Transferase 24 U/L (0-32); Blood Urea Nitrogen 26 mg/dL (8-23); Calcium 7.8 mg/dL (8.5-10.5); Carbon Dioxide 24 mmol/L (22-29); Chloride 102 mmol/L (98-107); Globulin 3.4 g/dL (1.3-4.6); Glucose 200 mg/dL (65-115); Osmolality Calculated 292 mOsm/kg (285-295); Potassium 3.7 mmol/L (3.5-5.1); Sodium 136 mmol/L (136-145); Total Bilirubin 0.3 mg/dL (0.15-1.2); Total Protein 5.3 g/dL (6.6-8.7)
[2021-08-16 10:12] LABS: Slide Review Slide Review Perform
[2021-08-16 10:20] LABS: Absolute Eosinophils 0.2 10^3/cmm (0.0-0.7); Absolute Segmented Neutrophil 11.5 10/cmm (1.6-7.1); Band Neutrophils Absolute 0.9 10^3/cmm (0.0-1.2); Eosinophils 2 %; Lymphocytes 7 %; Monocytes Absolute 0.1 10^3/cmm (0.1-0.6); Segmented Neutrophils 81 %; Total Cells Counted 100 (0-100)
[2021-08-16 10:22] LABS: Absolute Neutrophil 12.4 10^3/cmm (1.4-6.5); Platelet Estimate Increased (Normal)
[2021-08-16] MEDS: morphine 4 mg/mL SDV 1 mL IVP ×2 (10:39→19:32)
[2021-08-16] MEDS: LORazepam 2 mg/mL INJ 1 mL IVP (10:39)
--- NOTE | 2021-08-16 10:45 | PC.NURSE ---
Dr. Amaral gave order to terminally extubate, Patient extubated at 1045 per RT, family at bedside
--- NOTE | 2021-08-16 10:50 | PM.MISC ---
Miscellaneous Note Purpose of Documentation: Update in progress note: Note: Patient's family is present at bedside. Patient's , [id number], [id number], neighbor and his all present in the room. Patient status discussed with them in detail. There has been no change in neurological status so far despite dialysis sessions. Patient's states that he wants to let her go. All are in agreement that they should withdraw of life support and pursue comfort measures. Patient will be extubated. Comfort care orders placed.
--- NOTE | 2021-08-16 11:08 | PC.SOCIAL ---
IMM Update pg 2 of IMM not updated w/ patient or family. Patient has been extubated and transitioned to Comfort care.
[2021-08-17] VITALS (9 sets, daily range): BP systolic 143–161; BP diastolic 74–99; PULSE 114–123; RESP 15–16; TEMP 36.4–38.2; O2SAT 88–97
[2021-08-17] MEDS: morphine 4 mg/mL SDV 1 mL IVP ×4 (01:32→13:28)
[2021-08-17] MEDS: LORazepam 2 mg/mL INJ 1 mL IVP (04:05)
[2021-08-17] MEDS: glycopyrrolate 0.2 mg/mL SDV 2 mL IV (04:06)
--- NOTE | 2021-08-17 08:24 | PC.NURSE ---
patient not responding to stimuli, on comfort care, family at bedside
--- NOTE | 2021-08-17 13:21 | P.PN_ITS ---
Subjective Subjective: Seen this morning. Family present at bedside. All questions answered. Patient has had no purposeful movement and remains in comatose state. Appears comfortable. Vitals/I&O/Wt Last Vital Signs Temp 98.7 F 08/17/21 04:00 Pulse 116 H 08/17/21 12:00 Resp 17 08/16/21 09:33 BP 156/99 08/17/21 12:00 Pulse Ox 95 08/17/21 12:00 Weight last 48 hrs Weight 51.71 kg Weight 53 kg Physical Exam Narrative: General: Comatose patient. Cardio: Regular rate rhythm, normal S1-S2, systolic murmur present. Respiratory: Fair bilateral air entry GI: Abdomen soft, bowel sounds + Extremities: no edema, no cyanosis Neuro: NO CHANGE IN NEUROLOGICAL STATUS, comatose. Urinary Catheter Management: Salcedo: Cath Placed During This Visit: yes Reason for Continuing Indwelling Catheter: Accurate Measurement of Urinary Output in Critically Ill Patients Urinary Catheter Date of Insertion: 08/07/21 Urinary Catheter Time of Insertion: 15:33 Data : 08/16/21 09:30 08/16/21 09:30 Micro: Microbiology 08/14/21 22:50 Urine Culture - Final Urine Catheterized A&P Assessment and plan (1) Comatose: Status: Acute (2) Brainstem stroke: Status: Acute (3) Right middle cerebral artery stroke: Status: Acute (4) High anion gap metabolic acidosis: Status: Acute (5) ATN (acute tubular necrosis): Status: Acute (6) Acute renal failure (ARF): Status: Acute (7) Sepsis: Status: Acute (8) Acute cholecystitis: Status: Acute (9) Status post laparoscopic cholecystectomy: Status: Acute (10) Colitis: Status: Acute (11) Acute UTI: Status: Acute (12) Altered mental status: Status: Acute (13) Fever: Status: Acute Plan #Comfort measures only #Acute right cerebral hemisphere stroke, acute brainstem stroke #Unresponsive comatose state #Vent dependent respiratory failure #Sepsis secondary to gangrenous cholecystitis status post lap hodan 08/08 #Acute kidney injury, most likely oliguric ischemic ATN, #Type 2 diabetes mellitus #Acute metabolic encephalopathy, baseline dementia #Uncontrolled hypertension?resolved #Anemia?stable #Bilateral pyelonephritis #Possibly infected fluid in both pericolic gutters #Positive blood culture, organism speciation pending -Continue comfort measures. All questions answered for the family to their satisfaction. They are interested in inpatient hospice at this time if it is available. Patient's is a stroke patient himself and lives alone at home. Unsure if he will be able to take care of her at home with hospice. Patient's [id number] and [id number]-jk-goc have to fly back to [place] on Wednesday. We will discuss this with case management to see what options are available at this time ? Patient appears comfortable at this time. Attestations Medical Necessity Statement*: Comfort measures Coding Level of Care Code Acute Riveting Machine Operator Automatic for Lucian Fwd Diagnoses Comatose R40.20 Brainstem stroke I63.9 Right middle cerebral artery stroke I63.511 High anion gap metabolic acidosis E87.2 ATN (acute tubular necrosis) N17.0 Acute renal failure (ARF) N17.9 Sepsis A41.9 Acute cholecystitis K81.0 Status post laparoscopic cholecystectomy Z90.49 Colitis K52.9 Acute UTI N39.0 Altered mental status R41.82 Fever R50.9
--- NOTE | 2021-08-17 13:22 | PC.NURSE ---
Dr. Amaral gave v.o. to remove dialysis catheter to [facility] DIEGO
--- NOTE | 2021-08-17 14:27 | PC.NURSE ---
R IJ Dialysis line removed per v.o. from Dr. Amaral
[2021-08-17] MEDS: acetaminophen 650 mg Supp PR (21:18)
[2021-08-17] MEDS: ketorolac 30 mg/mL INJ 15 MG IVP (23:44)
[2021-08-18] VITALS: BP 112/65; PULSE 120; RESP 16; TEMP 37.7; O2SAT 91
[2021-08-18 04:00] VITALS: BP 96/49; PULSE 56; RESP 16; TEMP 38.1; O2SAT 93
--- NOTE | 2021-08-18 05:46 | PC.NURSE ---
0530- pt HR in the 30s on monitor. at 0534 pt asystole. TOD verified with neri Herrera RN. Dr. Mendoza notified. Family present.
--- NOTE | 2021-08-18 05:53 | PC.NURSE ---
Family requesting to wait on pt's to arrive before deciding on a home. Pt's family requesting information on homes that cremate. Director Of Collections And [employer] to be notified once they arrive. contingents supervisor notified. MTS notified. Pt not a candidate per MTS.
--- NOTE | 2021-08-18 06:13 | PC.NURSE ---
release of body form given to family. family requesting to wait to sign for pt's to arrive.
--- NOTE | 2021-08-18 07:11 | PC.NURSE ---
message left with certified social workers in health care regarding homes.
--- NOTE | 2021-08-18 07:32 | P.DES_ITS ---
Discharge Providers DDS Date of Admission: 08/07/21 21:29 Date Summary Completed: 08/19/21 Attending Provider at Admission: Reinaldo Mendoza MD Attending Provider at Discharge: MD JENNY [facility] Diagnoses Hospital Diagnoses (1) Comatose: (2) Brainstem stroke: (3) Right middle cerebral artery stroke: (4) High anion gap metabolic acidosis: (5) ATN (acute tubular necrosis): (6) Acute renal failure (ARF): (7) Sepsis: (8) Acute cholecystitis: (9) Status post laparoscopic cholecystectomy: (10) Colitis: (11) Acute UTI: (12) Altered mental status: (13) Fever: Reason for Visit Reason for Visit AMS, HTN Brief History: HPI as per Dr. Mendoza Jeancarlos Hernandez is a 86 year old female who was brought in today for chief complaint of altered mental status and fever.? Patient was not able to provide any history, I called her friend Chad See to get some report.? Patient was admitted to [facility] 2 weeks ago for complicated UTI, she was recommended rehab.? There was some delay on initiating PT/rehab however today when she was examined by the staff she was altered and had fever.? She was sent to the ER for further evaluation.? Her symptoms started 1 day ago with recurrent nausea and vomiting.? Her is suffering from expressive aphasia because of recent stroke he is not able to communicate over the phone however he understands and comprehend without difficulties as per . Chad See. When I examined the patient, she was altered, oriented to herself, noticed pansystolic murmur radiating towards her axilla, bilateral extremity edema, patient is unkempt, her feet soiled with fecal matter She is not able to provide any history Extensive work-up done in the ER which showed acute cholecystitis with 9 mm calcified stone in the neck of the gallbladder without CBD dilation bilirubin is normal she does not meet criteria for cholangitis she is febrile, has positive Dixon's sign, no jaundice Lactic acid is high She is septic Requested blood culture, urine culture judicious use of fluids because of CHF, COVID test negative start Zosyn Admit to ICU She is full code Summary Summary Summary: Pt was admitted for gangrenous cholecystitis status post lap hodan 08/08. Since surgery patient did not wake up despite being off sedation. She was then diagnosed with a right cerebral hemispheric stroke 08/10/2021.? Also has a brainstem stroke evidenced on clinical neuro logical exam.? Dialysis was also initiated inpatient for ATN. There was no change in neurological status. Family decided to pursue comfort measures. Patient 08/18/2021 5.34 AM Additional Data Advance directives?: No Discharge Plan Discharge Patient Disposition: Condition: Stable Probable Cause of Probable cause of : Cardiac arrest DS Attestations Time Spent in /Discharge Care*: less than 30 min Quality - AMI: AMI present?: No Quality - Stroke: CVA present?: Yes Quality - VTE: VTE present?: No Coding Level of Care Code Acute Porcelain Technician for Lucian Ewing Diagnoses Comatose R40.20 Brainstem stroke I63.9 Right middle cerebral artery stroke I63.511 High anion gap metabolic acidosis E87.2 ATN (acute tubular necrosis) N17.0 Acute renal failure (ARF) N17.9 Sepsis A41.9 Acute cholecystitis K81.0 Status post laparoscopic cholecystectomy Z90.49 Colitis K52.9 Acute UTI N39.0 Altered mental status R41.82 Fever R50.9
--- NOTE | 2021-08-18 09:17 | PC.NURSE ---
Patient family has picked [facility] in [place]. [facility] called at this time and notified the patinet is ready.
--- NOTE | 2021-08-18 10:47 | PC.CHAP ---
Pastoral Care Encounter/Spiritual Assessment Type of Contact [] Declined dough machine operator visit [] Patient/Family/Request visit [] Outpatient visit [] Follow-up visit [] Physician referral [] Code/Alert [x] Routine visit [] Staff referral [] Actively dying [] Patient sleeping [] Family support [] [] Out of room [] Palliative care [] [] Receiving care in room [] Pre-surgical visit [] Trauma [] Long length of stay [] ICU visit [x] Other:passes 5 am Relational/Emotional Strength [] Patient feels connected with others/family/visitors/staff [] Distress [] Loneliness/isolation [] Abandonment Spirituality of Patient [] Person of Kelsea [] Attends Buddhism of their Kelsea [] Believes in Prayer [] Reads Bible or Anabaptism materials [] There are Spiritual issues to be addressed Fireworks Assembly Supervisor Interventions [] Prayer [] Active listening [] Non-anxious presence [] Spiritual/emotional support [] Crisis/trauma care [] Spiritual counseling [] Bereavement support [] Provided bereavement packet [] Provided Bible/devotional materials [] Provided toy/stuffed animal, coloring book to patient or family member [] Provided Communion [] Anointing/[place] [] Salvation [] Completed spiritual assessment [] Other: Impact on Illness or Injury [] Angry [] Fearful [] Anxious [] Often cries [] Exhaustion [] Unable to work [] Unable to attend taoism [] Unable to walk/stand [] Unable to read [] Unable to drive [] Unable to eat/drink [] Unable to sleep [] Unable to be with family [] Patient intubated [] Other: Summary Time spent with patient
[2021-08-18 14:10] VITALS: BP 96/49; PULSE 56; RESP 16; TEMP 38.1; O2SAT 93
== END 2021-08-18 09:30 | disposition expired | DRG 853 ==
LOC: ER 18:39 → ICU 20:03 → MEDSURG 08-17 16:44
PROVIDERS: Internal Medicine; Internal Medicine Nephrology; Surgery; Admitting Provider Internal Medicine; Emergency Provider Emergency Medicine; Family Provider Internal Medicine; Visit Provider Internal Medicine
PROC: 0FT44ZZ Resection of Gallbladder, Percutaneous Endoscopic Approach (ICD-10-PCS; CPT 47562; principal; 2021-08-08 10:30)
DX: A41.9 Sepsis, unspecified organism (principal); R65.21 Severe sepsis with septic shock; G93.41 Metabolic encephalopathy; J96.00 Acute respiratory failure, unspecified whether with hypoxia or hypercapnia; I63.9 Cerebral infarction, unspecified; R40.20 Unspecified coma; N17.0 Acute kidney failure with tubular necrosis; N39.0 Urinary tract infection, site not specified; K80.00 Calculus of gallbladder with acute cholecystitis without obstruction; N12 Tubulo-interstitial nephritis, not specified as acute or chronic; Z99.11 Dependence on respirator [ventilator] status; K82.A1 Gangrene of gallbladder in cholecystitis; I10 Essential (primary) hypertension; F03.90 Unspecified dementia, unspecified severity, without behavioral disturbance, psychotic disturbance, mood disturbance, and anxiety; Z87.440 Personal history of urinary (tract) infections; I16.0 Hypertensive urgency; E11.9 Type 2 diabetes mellitus without complications; D64.9 Anemia, unspecified; E87.6 Hypokalemia; I46.9 Cardiac arrest, cause unspecified; K52.9 Noninfective gastroenteritis and colitis, unspecified; Z51.5 Encounter for palliative care; R29.730 NIHSS score 30; Z66 Do not resuscitate; R01.1 Cardiac murmur, unspecified
CPT/HCPCS: 36415; 36416; 36600; 51702; 70450; 70496; 70498; 71045; 71250; 74174; 74176; 74177; 76705; 76770; 80048; 80051; 80053; 80061; 80069; 80202; 81001; 81003; 82330; 82550; 82565; 82607; 82803; 82805; 82962; 83036; 83605; 83690; 83735; 84100; 84145; 84300; 84443; 84484; 84550; 85007; 85025; 85999; 86140; 86706; 87040; 87070; 87086; 87106; 87150; 87205; 87340; 87631; 87635; 87641; 88304; 93005; 93306; 93880; 94002; 94003; 94640; 94799; 96365; 96367; 96372; 97110; 97162; 97530; 99285; A4570; C1751; C9113; J0692; J0743; J1170; J1644; J1815 ×2; J1885; J2060; J2270; J2543; J2704; J3010; J3370; J3475; J3480; J3490; J7030; J7050; P9041; Q3014; Q9967; S0030